=== PATIENT | female | born 1975 | race Caucasian/White ===

== ENCOUNTER 2016-12-24 15:07 | Emergency (ER) | payer MEDICAID ==
[~2016-12-24] VITALS: Ht 162.6 cm; Wt 71.7 kg
[~2016-12-24 15:07] MED LIST: AMOXIL500 MG PO; FLEXERIL10 MG PO; GABAPENTIN 600600 MG PO; MEDROL 4MG. DOSE4 MG PO
[2016-12-24] MEDS ORDERED: TIZANIDINE HCL 44 MG PO (15:36)
[2016-12-24] MEDS ORDERED: ROPINIROLE2 MG PO (15:36)
[2016-12-24] MEDS ORDERED: POLYMYXIN B/TRI10 ML OP (15:36)
[2016-12-24] MEDS ORDERED: AMITRIPTYLINE H10 M1 PO (15:36)
[2016-12-24] MEDS ORDERED: CETIRIZINE HYDR10 MG PO (15:37)
[2016-12-24] MEDS ORDERED: AMOXICILLIN AND1 TA2 PO (15:38)
[2016-12-24] MEDS ORDERED: TESSALON PERLE100 M1 PO (15:56)
--- NOTE | 2016-12-24 15:58 | Emergency Room Report ---
History of Present Illness Time Seen by [id number] Presenting Problem in Triage Pt arrived:Walked Presenting Problem:PT REPORTS INCREASING REDNESS AND DRAINAGE FROM R EYE. PT REPORTS HAS BEEN ON DROPS FOR EYE X3 DAYS FOR "PINK EYE". PT REPORTS PRESSURE FEELING IN R EYE. Onset of symptoms date/time:12/19/16/ or onset unknown for:MEDICAL HX UNKNOWN Treatment Prior to Arrival: POLYMIXIN B EYE DROPS [employer] Provided by:SELF Sepsis Risk Assessment: Temp: 97.9 B/P: 124/83 MAP: 96 Pulse: 83 Resp: 18 Recent fever? N Clinical Suspician of Infection? N Mental Status: 1 - Regular (Normal Baseline) Sepsis Risk:Low Sepsis Risk Have you (or family members/close friends) recently traveled outside the [place]? N If Yes, where/when: Have you had exposure to infectious disease within the past month? N TB? Other? Specify: 40 years old white female smoker he is on her second ROUND OF antibiotic containing about Dr. Bazan because she continues to cough despite continuing to smoke. SHE DEVELOPED LEFT SC HEMORRHAGE. Source patient, RN notes reviewed, family Exam Limitations no limitations ALLERGIES Coded Allergies: No Known Allergies (06/01/16) Home Medications Reported Medications Gabapentin (Gabapentin 600MG) 600 MG PO Q8 #90 POLYMYXIN B SULF/TRIMETHOPRIM (Polymyxin B-Tmp Eye Drops) 10 ML OP BID #10 TIZANIDINE HCL (Tizanidine Hcl 4 Mg Tablet) 4 MG PO TIDP #60 AMITRIPTYLINE HCL (Amitriptyline Hydrochloride) 10 MG PO QHS #30 ROPINIROLE HCL (Ropinirole) 2 MG PO QHS #30 Cetirizine Hcl (Cetirizine Hydrochloride) 10 MG PO DAILY #30 AMOXICILLIN/POTASSIUM CLAV (Amox Tr-K Clv 875-125 MG Tab) 1 TAB PO BID #14 History Medical History General CAD? No Angina: No [place]: No Hypertension? No Hyperlipidemia? No CHF? No DVT? No PE? No COPD? No Asthma? No Anemia? No GERD? No Gastric ulcers? No GI Bleed? No Hernia? No Thyroid Problems? No Hypothyroidism? No CVA? No Seizures? No Diabetes? No Insulin Dependent: No Insulin Pump: No Home FSBS? No Renal Insuffiency? No End Stage Renal Disease? No UTI? No Stones? No BPH? No GB Disease: No Nephritic Syndrome? No Asplenia? No Hepatitis? No Sickle Cell Disease? No Arthritis? No Migraines? No Cataracts? No Glaucoma? No MRSA? No HIV? No TB? No Anxiety? Yes Depression? Yes Cancer? Yes Site: CERVICAL More? Yes Additional hx: PTSD Immunization Hx DT/Tetanus > 10 YRS Surgical Hx Previous Surgery?Y HYSTERECTOMY LAPAROSCOPY X 3 C SECTION ENLARGED BLADDER L ANKLE D & C IN [employer]ATE Hx LMP N/A Social History Smoking Hx Smoker: Current Every Day Smoker Tobacco: Yes Type Cigarettes Packs/day < 1 Pack Alcohol Alcohol: Yes Review of Systems All Other Systems Reviewed and Negative Constitutional no symptoms reported Eyes see HPI (LEFT SC HGE) ENT no symptoms reported. Respiratory see HPI, cough Cardiovascular no symptoms reported, see HPI Gastrointestinal no symptoms reported Genitourinary no symptoms reported. Musculoskeletal no symptoms reported Skin no symptoms reported Psychiatric/Neurological no symptoms reported Physical Exam Vital Signs Vital Signs Date Time Temp Pulse Resp B/P Pulse O2 O2 Flow FiO2 Ox Delivery Rate 12/24 1515 97.9 83 18 124/83 96 General Appearance normal appearance, WD/WN Ear, Nose, Throat hearing grossly normal, normal ENT inspection Neck normal inspection, non-tender, supple, full range of motion Respiratory Status Yes: trachea midline, chest symmetrical, non tender chest. No: respiratory distress. Lung Sounds bilateral: normal breath sounds, lungs clear. Cardiovascular normal exam, regular rate/rhythm, no peripheral edema, no gallop, no JVD, no murmur, no rub, normal peripheral pulses Peripheral Pulses Pulses normal Yes Gastrointestinal normal bowel sounds, normal exam, non tender, soft, no organomegaly Extremities non-tender, normal range of motion, normal inspection Neurologic alert, credit rating checker II-XII nml as tested, normal exam, oriented x 3 Reflexes Reflexes normal Yes Medical Decision Making LABS/Meds/Orders Pt receiving controlled substance in ED? No Departure Departure Time of Disposition 1554 Disposition DC Home or Self Care(routine) Clinical Impression Primary Impression: Cough Secondary Impressions: Acute bronchitis, Subconjunctival edema of left eye, Tobacco use Condition STABLE Referrals Uri MARTINS,Alexandria Issa Additional Instructions I DISCUSSED [place] PATIENT [facility] THE FOLLOWING DC PLAN. 1- STOP SMOKING. 2- HOB 30 DEGREE. 3-COLD COMPRESSES LEFT EYE. 4- PLACE CIPRO EYE DROPS IN THE FRIG. 5- TESSALON PEARLS. 6- RECHECK WITH DR BAZAN IN AM FOR NICOTIN PATCH WE DISCUSSED. 7- FINISH THE AMOXICILLIN ABX. 8- NO ASA OR NSAIDS ONLY TYLENOL. Discharge Counseling Counseled pt/family regarding diagnosis, test results, medications/RX, home care, follow up needs Prescriptions Current Visit Scripts Benzonatate (Tessalon Perle) 100 MG PO Q4HP PRN COUGH #30 SGL Ref 1 ED Critical Care Critical Care No at [id number]
--- NOTE | 2016-12-24 15:58 | Emergency Room Report ---
History of Present Illness Time Seen by [id number] Presenting Problem in Triage Pt arrived:Walked Presenting Problem:PT REPORTS INCREASING REDNESS AND DRAINAGE FROM R EYE. PT REPORTS HAS BEEN ON DROPS FOR EYE X3 DAYS FOR "PINK EYE". PT REPORTS PRESSURE FEELING IN R EYE. Onset of symptoms date/time:12/19/16/ or onset unknown for:MEDICAL HX UNKNOWN Treatment Prior to Arrival: POLYMIXIN B EYE DROPS TUG HAND Provided by:SELF Sepsis Risk Assessment: Temp: 97.9 B/P: 124/83 MAP: 96 Pulse: 83 Resp: 18 Recent fever? N Clinical Suspician of Infection? N Mental Status: 1 - Regular (Normal Baseline) Sepsis Risk:Low Sepsis Risk Have you (or family members/close friends) recently traveled outside the [place]? N If Yes, where/when: Have you had exposure to infectious disease within the past month? N TB? Other? Specify: 40 years old white female smoker he is on her second ROUND OF antibiotic containing about Dr. Bazan because she continues to cough despite continuing to smoke. SHE DEVELOPED LEFT SC HEMORRHAGE. Source patient, RN notes reviewed, family Exam Limitations no limitations ALLERGIES Coded Allergies: No Known Allergies (06/01/16) Home Medications Reported Medications Gabapentin (Gabapentin 600MG) 600 MG PO Q8 #90 POLYMYXIN B SULF/TRIMETHOPRIM (Polymyxin B-Tmp Eye Drops) 10 ML OP BID #10 TIZANIDINE HCL (Tizanidine Hcl 4 Mg Tablet) 4 MG PO TIDP #60 AMITRIPTYLINE HCL (Amitriptyline Hydrochloride) 10 MG PO QHS #30 ROPINIROLE HCL (Ropinirole) 2 MG PO QHS #30 Cetirizine Hcl (Cetirizine Hydrochloride) 10 MG PO DAILY #30 AMOXICILLIN/POTASSIUM CLAV (Amox Tr-K Clv 875-125 MG Tab) 1 TAB PO BID #14 History Medical History General CAD? No Angina: No [place]: No Hypertension? No Hyperlipidemia? No CHF? No DVT? No PE? No COPD? No Asthma? No Anemia? No GERD? No Gastric ulcers? No GI Bleed? No Hernia? No Thyroid Problems? No Hypothyroidism? No CVA? No Seizures? No Diabetes? No Insulin Dependent: No Insulin Pump: No Home FSBS? No Renal Insuffiency? No End Stage Renal Disease? No UTI? No Stones? No BPH? No GB Disease: No Nephritic Syndrome? No Asplenia? No Hepatitis? No Sickle Cell Disease? No Arthritis? No Migraines? No Cataracts? No Glaucoma? No MRSA? No HIV? No TB? No Anxiety? Yes Depression? Yes Cancer? Yes Site: CERVICAL More? 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 Respiratory see HPI, cough Cardiovascular no symptoms reported, see HPI Gastrointestinal no symptoms reported Genitourinary no symptoms reported. Musculoskeletal no symptoms reported Skin no symptoms reported Psychiatric/Neurological no symptoms reported Physical Exam Vital Signs Vital Signs Date Time Temp Pulse Resp B/P Pulse O2 O2 Flow FiO2 Ox Delivery Rate 12/24 1515 97.9 83 18 124/83 96 General Appearance normal appearance, WD/WN Ear, Nose, Throat hearing grossly normal, normal ENT inspection Neck normal inspection, non-tender, supple, full range of motion Respiratory Status Yes: trachea midline, chest symmetrical, non tender chest. No: respiratory distress. Lung Sounds bilateral: normal breath sounds, lungs clear. Cardiovascular normal exam, regular rate/rhythm, no peripheral edema, no gallop, no JVD, no murmur, no rub, normal peripheral pulses Peripheral Pulses Pulses normal Yes Gastrointestinal normal bowel sounds, normal exam, non tender, soft, no organomegaly Extremities non-tender, normal range of motion, normal inspection Neurologic alert, shot tube machine tender II-XII nml as tested, normal exam, oriented x 3 Reflexes Reflexes normal Yes Medical Decision Making LABS/Meds/Orders Pt receiving controlled substance in ED? No Departure Departure Time of Disposition 1554 Disposition DC Home or Self Care(routine) Clinical Impression Primary Impression: Cough Secondary Impressions: Acute bronchitis, Subconjunctival edema of left eye, Tobacco use Condition STABLE Referrals Uri MARTINS,Alexandria Issa Additional Instructions I DISCUSSED [place] PATIENT AT [facility] THE FOLLOWING DC PLAN. 1- STOP SMOKING. 2- HOB 30 DEGREE. 3-COLD COMPRESSES LEFT EYE. 4- PLACE CIPRO EYE DROPS IN THE FRIG. 5- TESSALON PEARLS. 6- RECHECK WITH DR BAZAN IN AM FOR NICOTIN PATCH WE DISCUSSED. 7- FINISH THE AMOXICILLIN ABX. 8- NO ASA OR NSAIDS ONLY TYLENOL. Discharge Counseling Counseled pt/family regarding diagnosis, test results, medications/RX, home care, follow up needs Prescriptions Current Visit Scripts Benzonatate (Tessalon Perle) 100 MG PO Q4HP PRN COUGH #30 SGL Ref 1 ED Critical Care Critical Care No at [id number]
[2016-12-24 16:14] VITALS: BP 124/83
--- OUTSIDE RECORDS SUMMARY | 2016-12-25 18:47 | External Medical Summary Rpt ---
Author Author , JERRICA BECERRIL Address Unknown Phone [email or web address] Care Team Providers Care Sign Hanger Name Role Phone AIDA DONNIE, AIDA Unavailable Unavailable DONNIE LU ALFONSO, LU Unavailable Unavailable ALFONSO ARNJENNIFER, KRYSTINAOLD Unavailable Unavailable MALLORY SCHULTZ, ARNOLD Unavailable Unavailable MARION FIGUEROA, Unavailable Unavailable ,PSC, GABRIEL FIGUEROA MD,PSC [facility] Unavailable Unavailable [facility], [facility] TODD SONNY, TODD Unavailable Unavailable SONNY TODD SONNY, TODD Unavailable Unavailable SONNY LIU ALL, LIU ALL Unavailable Unavailable ADIEL ANT, ADIEL ANT Unavailable Unavailable ADIEL ANT, ADIEL ANT Unavailable Unavailable [facility] Unavailable Unavailable H[facility]ITAL, [facility], [facility] Unavailable Unavailable AG AYSHA, AG Unavailable Unavailable AYSHA CHANDEL, CHANDEL Unavailable Unavailable CHANDEL ABDIRASHID, CHANDEL Unavailable Unavailable ABDIRASHID CHEESEMAN ALEX, Unavailable Unavailable CHEESEMAN ALEX CHEESEMAN ALEX, Unavailable Unavailable CHEESEMAN ALEX [facility], Unavailable Unavailable [facility] AMILCAR DONITA, Unavailable Unavailable AMILCAR DONITA AMILCAR DONITA, Unavailable Unavailable AMILCAR DONITA MIKEY ADR, MIKEY Unavailable Unavailable ADR EVELIO MALCOLM, EVELIO Unavailable Unavailable [facility] Unavailable Unavailable [facility] [place]available [place], [facility] [place] ECKERLINE JR GABRIELLE, Unavailable Unavailable ECKERLINE JR GABRIELLE ECKERLINE JR GABRIELLE, Unavailable Unavailable ECKERLINE JR GABRIELLE [facility], [facility] Unavailable Unavailable [facility], [facility] Unavailable Unavailable FRYMAN, FRYMAN Unavailable Unavailable KARI, KARI Unavailable Unavailable KARI LEELEE, KARI Unavailable Unavailable LEELEE [facility], Unavailable Unavailable [facility] GILBERT SONNY, GILBERT Unavailable Unavailable SONNY GILBERT SONNY, GILBERT Unavailable Unavailable SONNY COPELAND III, ALVIN I, Unavailable Unavailable COPELAND III, ALVIN I MIREILLE, MIREILLE Unavailable Unavailable WAY MOIRA, WAY Unavailable Unavailable MOIRA [facility] Un[facility] Un[facility], [facility], [facility], [facility] IN HERDER AFTAB, HERDER Unavailable Unavailable AFTAB HERDER AFTAB, HERDER Unavailable Unavailable AFTAB [facility], Unavailable Unavailable [facility] Unavailable Un[facility] Unavailable Unavailable [place], [facility] RIGGS GONAZLO, RIGGS GONZALO Unavailable Unavailable CATHERINE BECKI, CATHERINE Unavailable Unavailable BECKI CATHERINE BECKI, CATHERINE Unavailable Unavailable BECKI [facility] Unavailable Unavailable [facility], [facility] Unavailable Unavailable [facility], [facility] Unavailable Unavailable [facility], [facility] STOUT FORD, STOUT Unavailable Unavailable FOR[facility] Un[facility], [facility] NICOLETTE RAMÓN, NICOLETTE Unavailable Unavailable RAMÓN MCKEMIE JR DEBBIE, Unavailable Unavailable MCKEMIE JR DEBBIE MCKEMIE JR DEBBIE, Unavailable Unavailable MCKEMIE JR DEBBIE YOMI GRE, YOMI GRE Unavailable Unavailable YOMI GRE, YOMI GRE Unavailable Unavailable WASHINGTON AYSHA, WASHINGTON AYSHA Unavailable Unavailable NICKELS FREDDIE, NICKELS Unavailable Unavailable FREDDIE NICKELS FREDDIE, NICKELS Unavailable Unavailable FREDDIE GUERRERO DEBBIE, GUERRERO Unavailable Unavailable DEBBIE GUERRERO DEBBIE, GUERRERO Unavailable Unavailable DEBBIE [facility], Un[facility]available [facility], [facility] PETTEY, PETTEY Unavailable Unavailable [facility], Unavailable [facility]available [facility] PICKCKIMER JR, Unavailable Unavailable PICKLESIMER JR OZ HEN, OZ Unavailable Unavailable HEN [facility], Unavailable Unavailable [facility], Unavailable Unavailable [facility], Unavailable Unavailable BREWSTER RIDGE [facility] Unavailable Unavailable [id number] [address] [id number], [facility] [id number] # 0785 [place] SONNY, MI Unavailable Unavailable SONNY SCALF, SCALF Unavailable Unavailable SCALF NIRMAL, SCALF NIRMAL Unavailable Unavailable SCALF NIRMAL, SCALF NIRMAL Unavailable Unavailable SCIFRES, JOSE M, Unavailable Unavailable SCIFRES, JOES M CANDELARIA, CANDELARIA Unavailable Unavailable CANDELARIA LIA, CANDELARIA Unavailable Unavailable LIA EDWARD MAR, EDWARD Unavailable Unavailable MAR EDWARD MAR, EDWARD Unavailable Unavailable MAR JOHNSON DONITA, JOHNSON DONITA Unavailable Unavailable JOHNSON DONITA, JOHNSON DONITA Unavailable Unavailable [facility] Un[facility] Un[facility] Un[facility] BROWN RAY, BROWN Unavailable Unavailable [facility] Un[facility] Unavailable [facility], [facility] Unavailable Unavailable [facility]ENTER, [facility] SWINEY PAT, SWINEY Unavailable Unavailable PAT [facility], Unavailable [facility]available [facility] FATIMAH PHI, FATIMAH PHI Unavailable Unavailable [facility], Unavailable Unavailable [facility] MAHER PHI, MAHER Unavailable Unavailable PHI MAHER PHI, MAHER Unavailable Unavailable [facility] # Unavailable Unavailable 5574, [facility] # 5574 [facility] # Unavailable Unavailable 9712, [facility] # 9712 [facility] Unavailable Unavailable [facility] Unavailable Unavailable JULIA IV ALL, Unavailable Unavailable JULIA IV ALL [facility], Unavailable Unavailable [facility], Unavailable Unavailable [facility] YOUNG YAV, YOUNG YAV Unavailable Unavailable ESTIVEN MAT, ESTIVEN MAT Unavailable Unavailable ESTIVEN MAT, ESTIVEN MAT Unavailable Unavailable Purpose Continuity of Care Document - 10-20-2009 through 2016 Problems Code Diagnosis DOS Provider Status N390 URINARY 10-10-2016 [facility] TRACT N EMERGENCY INFECTION PHYS SITE NOT SPECIFIED N8110 CYSTOCELE 10-10-2016 [facility] UNSPECIFIED N EMERGENCY PHYS J0190 ACUTE 07-06-2016 [facility] SINUSITIS N EMERGENCY UNSPECIFIED PHYS R05 COUGH 07-06-2016 [facility] R0602 SHORTNESS 07-06-2016 [facility] OF BREATH [facility] R062 WHEEZING 07-06-2016 [facility] N EMERGENCY PHYS [id number] UNSPECIFIED 06-28-2016 [facility] INJURY PHYSICIANS LEFT ANKLE GROUP SUBSEQUENT ENCNTR [id number] SPRAIN 06-14-2016 [facility] OTHER PHYSICIANS LIGAMENT LT GROUP ANKLE INITIAL ENCOUNTER G8921 CHRONIC 06-01-2016 [facility] DUE [facility] TRAUMA INC P20076 PAIN IN 06-01-2016 [facility] LEFT FOOT [facility] INC Z720 TOBACCO USE 06-01-2016 [facility] P58869 PAIN IN 05-30-2016 [facility] [place] LEFT ANKLE RADIOLOGY [id number] SPRAIN UNS 05-30-2016 [facility] LIGAMENT N EMERGENCY LEFT ANKLE PHYS INITIAL ENCOUNTER Y93F2 ACTIVITY 05-30-2016 [facility] CAREGIVING N EMERGENCY LIFTING PHYS A599 TRICHOMONIA 05-18-2016 [facility] UNSPECIFIED B9689 OTH SPEC 05-18-2016 [facility] B[facility]ERIAL [facility] AGNT CAUSE DZ CLASSIFIED ELSW J0100 ACUTE 05-18-2016 [facility] MAXILLARY PHYSICIANS SINUSITIS GROUP UNSPECIFIED N898 OTHER 05-18-2016 [facility] SPECIFIED LLC NONINFLAMMA TORY DISORDERS VAGINA Y67155 ENCOUNTER 05-18-2016 [facility], CONTINUOUS IMPROVEMENT INTERN EXAM LLC GENERAL RTN W/O ABNORMAL FIND Z139 ENCOUNTER 05-18-2016 [facility] FOR PHYSICIANS SCREENING GROUP UNSPECIFIED [id number] SPRAIN 04-10-2016 [facility] TARSOMETATA N EMERGENCY RSAL PHYS LIGAMENT LT FOOT INIT ENC U5449MN SLIP TRIP & 04-10-2016 [facility] STUMBLING N EMERGENCY W/O FALLING PHYS UNS INIT ENC R1011 RIGHT UPPER 04-07-2016 [facility] E119 TYPE 2 03-29-2016 [facility] DIABETES PHYSICIANS MELLITUS GROUP WITHOUT COMPLICATIO NS E663 OVERWEIGHT 03-29-2016 [facility] PHYSICIANS GROUP E785 HYPERLIPIDE 03-29-2016 [facility] KENNY PHYSICIANS UNSPECIFIED GROUP G629 POLYNEUROPA 03-29-2016 [facility] THY PHYSICIANS UNSPECIFIED GROUP M549 DORSALGIA 03-29-2016 [facility] UNSPECIFIED PHYSICIANS GROUP Z1231 ENCOUNTER 03-29-2016 [facility] SCREENING PHYSICIANS MAMMO MALIG GROUP NEOPLASM BREAST K219 GASTRO-ESOP 02-09-2016 [facility] H REFLUX PHYSICIANS DISEASE GROUP WITHOUT ESOPHAGITIS B850 PEDICULOSIS 12-30-2015 [facility] PEDICULUS MEDICAL HUMANUS GROUP CAPITIS J40 BRONCHITIS 12-04-2015 [facility] N EMERGENCY SPECIFIED PHYSI ACUTE OR CHRONIC R0789 OTHER CHEST 12-04-2015 [facility] PAIN [facility] R091 PLEURISY 12-04-2015 [facility] N EMERGENCY PHYSI M542 CERVICALGIA 11-18-2015 [facility] A877VPZ STRAIN 11-18-2015 [facility] MUSCLE FASC N EMERGENCY & TENDON SERV NECK LEVL INIT ENC D62VGPI EXPOSURE TO 11-18-2015 [facility] OTHER N EMERGENCY SPECIFIED SERV FACTORS INITIAL ENC K85521 ELEVATED 11-15-2015 [facility] CELL COUNT UNSPECIFIED G2581 RESTLESS 11-15-2015 [facility] SYNDROME R7309 OTHER 11-15-2015 [facility] GLUCOSE R0781 PLEURODYNIA 10-13-2015 [facility] N EMERGENCY PHYSI R1030 LOWER 10-03-2015 [facility] ABDOM[facility]AL [facility] PAIN UNSPECIFIED M545 LOW BACK 08-12-2015 [facility] PAIN N EMERGENCY PHYSI 73314 METHICILLIN 02-02-2015 [facility] RESISTANT PHYSICIANS STAPHYLOCOC GROUP CUS AUREUS 90453 OTHER 02-02-2015 [facility] CHRONIC PHYSICIANS PAIN GROUP 490 BRONCHITIS 02-02-2015 [facility] NOT PHYSICIANS SPECIFIED GROUP ACUTE OR CHRONIC 7231 CERVICALGIA 02-02-2015 [facility] PHYSICIANS GROUP 460 ACUTE 01-26-2015 [facility] NASOPHARYNG N EMERGENCY ITIS PHYS 6250 DYSPAREUNIA 01-26-2015 [facility]GENC[facility] PHYS 6273 POSTMENOPAU 01-26-2015 [facility] RAISA N EMERGENCY ATROPHIC PHYS VAGINITIS 7841 THROAT PAIN 01-26-2015 [facility] N EMERGENCY PHYS 462 ACUTE 01-15-[address] [facility] PHARYNGITIS PHYSICIANS, [facility] 7242 LUMBAGO 06-22-2014 [facility] V571 OTHER 06-22-2014 [facility] 74305 CHRONIC 05-06-2014 [facility] OBSTRUCTIVE N EMERGENCY ASTHMA PHYS UNSPECIFIED 52876 WHEEZING 05-06-2014 [facility] N EMERGENCY PHYS 34353 OTHER 03-05-2014 [facility] SPECIFIED ARTHROPATHY PELVIC REGION&THIG H 7291 UNSPECIFIED 03-05-2014 [facility] MYALGIA AND MYOSITIS 7905 OTHER 12-23-2013 [facility] HOSPITAL SERUM ENZYME LEVELS 2113 BENIGN 11-26-2013 [facility] NEOPLASM [facility] COLON 4550 INTERNAL 11-26-2013 [facility] WITHOUT MENTION COMP 78286 UNSPECIFIED 11-26-2013 [facility] CONSTIPATIO N 5781 BLOOD IN 11-26-2013 [facility] 58196 ABDOMINAL 11-26-2013 [facility] GENERALIZED 25253 NAUSEA 10-09-2013 [facility] ALONE DONITA 10265 ABDOMINAL 10-09-2013 [facility] PAIN, DONITA UNSPECIFIED SITE 87058 ABDOMINAL 10-09-2013 [facility] RIGHT [facility] UPPER INC QU[facility] 28104 PAIN IN 09-30-2013 [facility] JOINT, DONITA LOWER LEG E8889 UNSPECIFIED 09-30-2013 [facility] FALL DONITA V642 SURG/OTH 09-25-2013 [facility] PROC NOT [facility] HOS[facility] CARRIED OUT INC BECAUSE PTS DECN 7210 CERVICAL 09-10-[address] SPONDYLOSIS SURGERY WITHOUT CENTER MYELOPATHY 7213 LUMBOSACRAL 09-10-2013 [facility] DONITA SPONDYLOSIS WITHOUT MYELOPATHY 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 56709 SPINAL STEN 09-10-2013 [facility] LUMB REG DONITA W/O NEUROGENIC CLAUDICATIO N 486 PNEUMONIA, 09-02-2013 [facility] ORGANISM [facility] UNSPECIFIED INC 514 PULMONARY 09-02-2013 [facility] CONGESTION DONITA AND HYPOSTASIS 7862 COUGH 09-02-2013 [facility] DONITA 5758 OTHER 08-20-2013 [facility] SPECIFIED DONITA DISORDER OF GALLBLADDER 65202 FEVER 08-20-2013 MCSERAMIE JR UNSPECIFIED DEBBIE 67838 CHEST PAIN 08-20-2013 MCKEMIE JR UNSPECIFIED DEBBIE 7873 FLATULENCE 08-01-2013 ADIEL ANT ERUCTATION AND GAS PAIN 4658 ACUTE URIS 07-08-2013 JOHNSON DONITA OF OTHER MULTIPLE SITES 2893 LYMPHADENIT 07-03-2013 [facility] IS UNSPECIFIED EXCEPT MESENTERIC 4660 ACUTE 07-03-2013 [facility] BRONCHITIS 29599 ASTHMA, 07-03-2013 [facility] UNSPECIFIED , UNSPECIFIED STATUS 3544 CAUSALGIA 06-17-2013 [facility] OF UPPER HENRY LIMB ,PSC 7224 DEGENERATIO 06-17-2013 GABRIEL N OF HENRY CERVICAL ,PSC INTERVERTEB RAL DISC V790 SCREENING 06-17-2013 [facility] FOR HENRY DEPRESSION ,PSC 4871 INFLUENZA 04-22-2013 [facility] WITH OTHER RESPIRATORY MANIFESTATI ONS 5368 DYSPEPSIA&O 04-04-2013 [facility] DISORDERS FUNCTION STOMACH 06585 OTHER 04-02-2013 N[facility]ELS FREDDIE SYMPTOMS INVOLVING DIGESTIVE SYSTEM OTHER V1279 PERSONAL 04-02-2013 [facility] HOSPITAL DISEASES DIGESTIVE DISEASE V4589 OTHER 04-02-2013 E[facility] POSTSURGICA JR GABRIELLE L STATUS OTHER 27698 INTERVERT 11-14-2012 [facility] GRE LUMB DISC D/O W/MYELOPATH Y LUMB REGION 7812 ABNORMALITY 11-14-2012 [facility] GRE OF GAIT V7109 OBSERVATION 11-14-2012 [facility] GRE OF OTHER SUSPECTED MENTAL CONDITION 6826 CELLULITIS 11-08-2012 TODD SONNY AND ABSCESS OF LEG EXCEPT FOOT 99828 UNSPECIFIED 11-04-2012 [facility] ESOPHAGITIS 67159 OTHER SPEC 11-04-2012 GUERRERO DEBBIE GASTRITIS WITHOUT MENTION HEMORRHAGE 7871 HEARTBURN 11-04-2012 LU ALFONSO 56929 REFLUX 10-31-2012 [facility] ESOPHAGITIS 3384 CHRONIC 10-15-2012 [facility] PAIN SYNDROME 7234 BRACHIAL 10-15-2012 [facility] NEURITIS OR RADICULITIS NOS 7238 OTHER 10-15-2012 [facility] SYNDROMES AFFECTING CERVICAL REGION 84557 ABDOMINAL 10-09-2012 [facility] NIRMAL PAIN, EPIGASTRIC 7919 OTHER 10-09-2012 [facility] EXAMINATION OF URINE 7804 DIZZINESS 09-17-2012 BALDEMAR UGALDE AND GIDDINESS E9352 OTH 09-17-2012 HERDLEANN UGALDE OPIATES&[place] [address] ESOPHAGEAL 09-09-2012 ESTIVEN MAT REFLUX 4549 ASYMPTOMATI 09-03-2012 [facility] C VARICOSE VEINS 7295 PAIN IN 08-20-2012 BHUMIKA SONNY SOFT TISSUES OF LIMB 50001 UNSPECIFIED 06-11-2012 [facility] ARTHROPATHY OTHER SPECIFIED SITES 7220 DISPLCMT 06-11-2012 [facility] CERV SERVICES INTERVERT DISC WITHOUT MYELOPATHY 73899 INTERVERT 02-21-2012 [facility] DISC [facility] W/MYELOPATH Y CERV REGION 7244 THORACIC/MARLA 02-21-2012 [facility] NEURITIS/RA HOSPITAL DICULITIS UNSPEC 8470 NECK SPRAIN 02-21-2012 [facility] V5789 OTHER 02-21-2012 [facility] ION PROCEDURE OTHER 4619 ACUTE 02-06-2012 [facility] SINUSITIS, UNSPECIFIED 5990 URINARY 07-03-2011 [facility]IK[facility] PHI TRACT INFECTION SITE NOT SPECIFIED 7840 HEADACHE 07-03-2011 [facility] PHI 18154 LUMP OR 06-26-2011 EDWARD JHONATAN MASS IN BREAST 4659 ACUTE URIS 05-29-2011 [facility] OF ALEX UNSPECIFIED SITE 3531 LUMBOSACRAL 04-18-2011 [facility] GRE PLEXUS LESIONS 6235 LEUKORRHEA 04-10-2011 [facility] NOT AMERIC SPECIFIED HOLDINGS INFECTIVE V7231 ROUTINE 04-10-2011 ED[facility] MAR GYNECOLOGIC AL EXAMINATION V7381 SPECIAL 04-10-2011 [facility] SCREENING AMERIC EXAMINATION HOLDINGS HUMAN PAPILVIRUS V762 SCREENING 04-10-2011 ED[facility] MAR FOR MALIGNANT NEOPLASM OF THE CERVIX 04281 OSTEOARTHRO 03-22-2011 CATHERINE CONNELL S UNSPEC WHETHER GEN/LOC UNSPEC SITE 41515 PAIN IN 03-22-2011 CATHERINE CONNELL JOINT PELVIC REGION AND THIGH 8472 LUMBAR 03-14-2011 [facility]ANS SPRAIN AND SERVICES STRAIN V5883 ENCOUNTER 02-10-2011 [facility]ANS FOR SERVICES THERAPEUTIC DRUG MONITORING 24103 SPONDYLOSIS 01-20-2011 PHYSIC[facility]ANS WITH SERVICES MYELOPATHY LUMBAR REGION 7211 CERVICAL 12-30-2010 PHYSIC[facility]ANS SPONDYLOSIS SERVICES WITH MYELOPATHY 7230 SPINAL 12-30-2010 PHYSICIANS STENOSIS IN SERVICES CERVICAL REGION V5869 LONG-TERM 12-27-2010 [facility] (CURRENT) PRIMARY USE OF [facility]ARE LLC OTHER MEDICATIONS 7245 UNSPECIFIED 12-01-2010 [facility] 496 CHRONIC 08-11-2010 [facility] AIR[facility] OBSTRUCTION NEC 5718 OTHER 08-01-2010 [facility] CHRONIC [facility] NONALCOHOLI C LIVER DISEASE 56535 UNSPECIFIED 08-01-2010 [facility] KIDNEY DISEASE 45393 ABDOMINAL 08-01-2010 [facility] 11213 DISPLCMT 07-06-2010 [facility] LUMBAR OPEN MRI INTERVERT DISC W/O MYELOPATHY 53335 SPASM OF 07-06-2010 [facility] MUSCLE OPEN MRI 11255 SCOLIOSIS , 07-06-2010 [place] IDIOPATHIC OPEN MRI 5210 DENTAL 12-21-2009 ALVIN Poole COPELAND CARIES III PSC N0 3 3670 HYPERMETROP 11-23-2009 SHAKIRA COHEN VISION Allergies, Adverse Reactions, Alerts Clinical Alert Notifications Alert Diabetes: no A1C in the last 6 months Diabetes: no eye exam in the last 365 days Diabetes: no influenza vaccine in the last 365 days Medications Na ND Rx Da Fi Fi Am Da Di Ph RX Ph St me C No te ll ll ou ys ag ar # ys at rm s nt no ma ic us Or Da si cy ia de te s n re d ME 00 07 08 30 30 00 KE Ac TF 09 -0 -0 .0 00 NT ti OR 37 3- 4- 00 01 UC ve LA 26 20 20 01 [place] N 71 17 17 86 HC 0 65 CV L S ER PH AR 50 MA 0 CY MG LL TA C, BL ET DB A CV S PH AR MA CY #3 01 6 TI 00 06 07 60 30 00 KE Ac ZA 37 -2 -2 .0 00 NT ti NI 80 8- 8- 00 01 UC ve DI 72 20 20 03 [place] NE 41 17 17 97 9 89 CV HC S L PH 4 AR MG MA CY TA BL LL ET C, DB A CV S PH AR MA CY #3 01 6 CE 00 06 07 30 30 00 KE Ac TI 37 -1 -2 .0 00 NT ti RI 83 7- 1- 00 01 UC ve ZI 63 20 20 02 [place] NE 70 17 17 91 1 26 CV HC S L PH 10 AR MA MG CY TA LL BL C, ET DB A CV S PH AR MA CY #3 01 6 GA 65 06 07 90 30 00 KE Ac BA 86 -1 -1 .0 00 NT ti PE 20 0- 4- 00 01 UC ve NT 52 20 20 03 [place] IN 30 17 17 49 5 39 CV 60 S 0 PH MG AR MA TA CY BL ET LL C, DB A CV S PH AR MA CY #3 01 6 ME 00 06 07 30 30 00 KE Ac TF 09 -0 -0 .0 00 NT ti OR 37 3- 7- 00 01 UC ve LA 26 20 20 01 [place] N 71 17 17 86 HC 0 65 CV L S ER PH AR 50 MA 0 CY MG LL TA C, BL ET DB A CV S PH AR MA CY #3 01 6 AM 00 06 07 30 30 00 KE Ac IT 37 -0 -0 .0 00 NT ti RI 82 5- 7- 00 01 UC ve PT 61 20 20 03 [place] YL 00 17 17 40 IN 1 06 CV E S HC PH L AR 10 MA CY MG LL TA C, B DB A CV S PH AR MA CY #3 01 6 RO 55 06 07 30 30 00 KE Ac PI 11 -0 -0 .0 00 NT ti NI 10 5- 7- 00 01 UC ve RO 65 20 20 03 [place] LE 93 17 17 40 0 07 CV HC S L PH ER AR 2 MA CY MG LL TA C, BL ET DB A CV S PH AR MA CY #3 01 6 CI 65 05 06 14 7 00 KE Ac ID 86 -2 -2 .0 00 NT ti OF 20 3- 3- 00 01 UC ve LO 07 20 20 03 [place] XA 70 17 17 13 CI 1 18 CV N S HC PH L AR 50 MA 0 CY MG LL TA C, B DB A CV S PH AR MA CY #3 01 6 HY 53 05 06 [address] 74 -2 -2 .0 00 NT ti OC 60 3- 3- 00 01 UC ve OD 10 20 20 03 [place] ON 90 17 17 13 -A 5 19 CV CE S TA PH LA AR NO MA PH CY EN LL 5- C, 32 5 DB A CV S PH AR MA CY #3 01 6 TI 00 05 06 60 30 00 KE Ac ZA 37 -2 -2 .0 00 NT ti NI 80 4- 3- 00 01 UC ve DI 72 20 20 03 [place] NE 41 17 17 14 9 87 CV HC S L PH 4 AR MG MA CY TA BL LL ET C, DB A CV S PH AR MA CY #3 01 6 GA 65 05 06 90 30 00 KE Ac BA 86 -1 -1 .0 00 NT ti PE 20 2- 6- 00 01 UC ve NT 52 20 20 00 [place] IN 30 17 17 31 5 79 CV 60 S 0 PH MG AR MA TA CY BL ET LL C, DB A CV S PH AR MA CY #3 01 6 CE 00 05 06 30 30 00 KE Ac TI 37 -1 -1 .0 00 NT ti RI 83 5- 6- 00 01 UC ve ZI 63 20 20 02 [place] NE 70 17 17 91 1 26 CV HC S L PH 10 AR MA MG CY TA LL BL C, ET DB A CV S PH AR MA CY #3 01 6 AM 00 05 06 30 30 00 KE Ac IT 37 -0 -0 .0 00 NT ti RI 82 4- 9- 00 01 UC ve PT 61 20 20 00 [place] YL 00 17 17 31 IN 1 81 CV E S HC PH L AR 10 MA CY MG LL TA C, B DB A CV S PH AR MA CY #3 01 6 RO 55 05 06 30 30 00 KE Ac PI 11 -0 -0 .0 00 NT ti NI 10 4- 9- 00 01 UC ve RO 65 20 20 00 [place] LE 93 17 17 31 0 80 CV HC S L PH ER AR 2 MA CY MG LL TA C, BL ET DB A CV S PH AR MA CY #3 01 6 TI 00 04 05 60 30 00 KE Ac ZA 37 -2 -2 .0 00 NT ti NI 80 6- 6- 00 01 UC ve DI 72 20 20 02 [place] NE 41 17 17 19 9 17 CV HC S L PH 4 AR MG MA CY TA BL LL ET C, DB A CV S PH AR MA CY #3 01 6 CE 00 04 05 30 30 00 KE Ac TI 37 -1 -1 .0 00 NT ti RI 83 6- 9- 00 00 UC ve ZI 63 20 20 98 [place] NE 70 17 17 89 1 23 CV HC S L PH 10 AR MA MG CY TA LL BL C, ET DB A CV S PH AR MA CY #3 01 6 GA 65 04 05 90 30 00 KE Ac BA 86 -1 -1 .0 00 NT ti PE 20 3- 9- 00 01 UC ve NT 52 20 20 00 [place] IN 30 17 17 31 5 79 CV 60 S 0 PH MG AR MA TA CY BL ET LL C, DB A CV S PH AR MA CY #3 01 6 AM 00 04 05 30 30 00 KE Ac IT 37 -0 -0 .0 00 NT ti RI 82 3- 5- 00 01 UC ve PT 61 20 20 00 [place] YL 00 17 17 31 IN 1 81 CV E S HC PH L AR 10 MA CY MG LL TA C, B DB A CV S PH AR MA CY #3 01 6 RO 55 04 05 30 30 00 KE Ac PI 11 -0 -0 .0 00 NT ti NI 10 4- 5- 00 01 UC ve RO 65 20 20 00 [place] LE 93 17 17 31 0 80 CV HC S L PH ER AR 2 MA CY MG LL TA C, BL ET DB A CV S PH AR MA CY #3 01 6 ME 00 04 05 30 30 00 KE Ac TF 09 -0 -0 .0 00 NT ti OR 37 4- 5- 00 01 UC ve LA 26 20 20 01 [place] N 71 17 17 86 HC 0 65 CV L S ER PH AR 50 MA 0 CY MG LL TA C, BL ET DB A CV S PH AR CLAUDETTE CY #3 01 6 TI 00 03 04 60 30 00 KE Ac ZA 37 -1 -2 .0 00 NT ti NI 80 9- 1- 00 00 UC ve DI 72 20 20 98 [place] NE 41 17 17 61 9 58 CV HC S L PH 4 AR MG MA CY TA BL LL ET C, DB A CV S PH AR MA CY #3 01 6 CE 00 03 04 30 30 00 KE Ac TI 37 -1 -2 .0 00 NT ti RI 83 9- 1- 00 00 UC ve ZI 63 20 20 98 [place] NE 70 17 17 89 1 23 CV HC S L PH 10 AR MA MG CY TA LL BL C, ET DB A CV S PH AR MA CY #3 01 6 GA 65 03 04 90 30 00 KE Ac BA 86 -1 -1 .0 00 NT ti PE 20 5- 4- 00 01 UC ve NT 52 20 20 00 [place] IN 30 17 17 31 5 79 CV 60 S 0 PH MG AR MA TA CY BL ET LL C, DB A CV S PH AR MA CY #3 01 6 ME 00 03 04 30 30 00 KE Ac TF 09 -0 -0 .0 00 NT ti OR 37 6- 7- 00 00 UC ve LA 26 20 20 96 [place] N 71 17 17 36 HC 0 47 CV L S ER PH AR 50 MA 0 CY MG LL TA C, BL ET DB A CV S PH AR MA CY #3 01 6 AM 00 03 04 30 30 00 KE Ac IT 37 -0 -0 .0 00 NT ti RI 82 7- 7- 00 01 UC ve PT 61 20 20 00 [place] YL 00 17 17 31 IN 1 81 CV E S HC PH L AR 10 MA CY MG LL TA C, B DB A CV S PH AR MA CY #3 01 6 RO 55 03 04 30 30 00 KE Ac PI 11 -0 -0 .0 00 NT ti NI 10 8- 7- 00 01 UC ve RO 65 20 20 00 [place] LE 93 17 17 31 0 80 CV HC S L PH ER AR 2 MA CY MG LL TA C, BL ET DB A CV S PH AR MA CY #3 01 6 CL 57 02 03 20 10 00 KE Ac AR 23 -1 -2 .0 00 NT ti IT 70 6- 4- 00 01 UC ve HR 04 20 20 00 [place] OM 56 17 17 56 YC 0 04 CV IN S PH 50 AR 0 MA MG CY TA LL BL C, ET DB A CV S PH AR MA CY #3 01 6 ID 00 02 03 15 5 00 KE Ac ED 14 -1 -2 .0 00 NT ti NI 39 6- 4- 00 01 UC ve SO 73 20 20 00 [place] NE 80 17 17 56 5 05 CV 20 S PH MG AR MA TA CY BL ET LL C, DB A CV S PH AR MA CY #3 01 6 ID 60 02 03 24 6 00 KE Ac OM 43 -1 -2 0. 00 NT ti ET 20 6- 4- 00 01 UC ve SALAZAR 60 20 20 0 00 [place] ZI 41 17 17 56 NE 6 06 CV -D S M PH SY AR RU MA P CY LL C, DB A CV S PH AR MA CY #3 01 6 RO 55 02 03 30 30 00 KE Ac PI 11 -0 -1 .0 00 NT ti NI 10 9- 7- 00 01 UC ve RO 65 20 20 00 [place] LE 93 17 17 31 0 80 CV HC S L PH ER AR 2 MA CY MG LL TA C, BL ET DB A CV S PH AR MA CY #3 01 6 GA 65 02 03 90 30 00 KE Ac BA 86 -1 -1 .0 00 NT ti PE 20 4- 7- 00 01 UC ve NT 52 20 20 00 [place] IN 30 17 17 31 5 79 CV 60 S 0 PH MG AR MA TA CY BL ET LL C, DB A CV S PH AR MA CY #3 01 6 ID 00 02 03 10 5 00 KE Ac ED 14 -0 -1 .0 00 NT ti NI 39 8- 0- 00 01 UC ve SO 73 20 20 00 [place] NE 80 17 17 31 5 78 CV 20 S PH MG AR MA TA CY BL ET LL C, DB A CV S PH AR MA CY #3 01 6 AM 00 02 03 30 30 00 KE Ac IT 37 -0 -1 .0 00 NT ti RI 82 8- 0- 00 01 UC ve PT 61 20 20 00 [place] YL 00 17 17 31 IN 1 81 CV E S HC PH L AR 10 MA CY MG LL TA C, B DB A CV S PH AR MA CY #3 01 6 AC 00 02 03 14 7 00 KE Ac ET 09 -0 -1 .0 00 NT ti AM 30 8- 0- 00 01 UC ve IN 15 20 20 00 [place] OP 01 17 17 31 HE 0 99 CV N- S CO PH D AR #3 MA CY TA BL LL ET C, DB A CV S PH AR MA CY #3 01 6 ME 00 02 03 30 30 00 KE Ac TF 09 -0 -1 .0 00 NT ti OR 37 3- 0- 00 00 UC ve LA 26 20 20 96 [place] N 71 17 17 36 HC 0 47 CV L S ER PH AR 50 MA 0 CY MG LL TA C, BL ET DB A CV S PH AR MA CY #3 01 6 GA 65 01 02 90 30 00 KE Ac BA 86 -1 -1 .0 00 NT ti PE 20 6- 7- 00 00 UC ve NT 52 20 20 97 [place] IN 30 17 17 69 5 74 CV 60 S 0 PH MG AR MA TA CY BL ET LL C, DB A CV S PH AR MA CY #3 01 6 FL 00 01 02 1. 1 00 KE Ac UC 17 -1 -1 00 00 NT ti ON 25 7- 7- 0 00 UC ve AZ 41 20 20 99 [place] OL 14 17 17 70 E 6 40 CV 10 S 0 PH MG AR MA TA CY BL ET LL C, DB A CV S PH AR MA CY #3 01 6 DI 16 01 02 30 15 00 KE Ac CL 57 -1 -1 .0 00 NT ti OF 10 0- 0- 00 00 UC ve EN 20 20 20 99 [place] AC 10 17 17 51 6 78 CV SO S D PH EC AR MA 75 CY MG LL C, TA B DB A CV S PH AR MA CY #3 01 6 ME 50 01 02 42 14 00 KE Ac TR 11 -0 -1 .0 00 NT ti ON 10 9- 0- 00 00 UC ve ID 33 20 20 99 [place] 40 17 17 47 OL 1 29 CV E S 50 PH 0 AR MG MA CY TA BL LL ET C, DB A CV S PH AR MA CY #3 01 6 ME 00 01 02 30 30 00 KE Ac TF 09 -0 -1 .0 00 NT ti OR 37 7- 0- 00 00 UC ve LA 26 20 20 96 [place] N 71 17 17 36 HC 0 47 CV L S ER PH AR 50 MA 0 CY MG LL TA C, BL ET DB A CV S PH AR MA CY #3 01 6 AZ 59 12 02 6. 5 00 KE Ac IT 76 -2 -0 00 00 NT ti HR 23 9- 3- 0 00 UC ve OM 06 20 20 99 [place] YC 00 16 17 20 IN 1 62 CV S 25 PH 0 AR MG MA CY TA BL LL ET C, DB A CV S PH AR MA CY #3 01 6 AM 00 12 01 30 30 00 KE Ac IT 37 -2 -2 .0 00 NT ti RI 82 2- 7- 00 00 UC ve PT 62 20 20 98 [place] YL 51 16 17 07 IN 0 51 CV E S HC PH L AR 25 MA CY MG LL TA C, B DB A CV S PH AR MA CY #3 01 6 GA 65 12 01 90 30 00 KE Ac BA 86 -1 -2 .0 00 NT ti PE 20 5- 0- 00 00 UC ve NT 52 20 20 97 [place] IN 30 16 17 69 5 74 CV 60 S 0 PH MG AR MA TA CY BL ET LL C, DB A CV S PH AR MA CY #3 01 6 ID 59 12 01 20 7 00 KE Ac OC 74 -1 -1 .0 00 NT ti HL 60 4- 3- 00 00 UC ve OR 11 20 20 98 [place] PE 50 16 17 78 RA 6 63 CV ZI S NE PH AR 10 MA CY MG LL TA C, B DB A CV S PH AR MA CY #3 01 6 AC 00 12 01 10 2 00 KE Ac ET 09 -1 -1 .0 00 NT ti AM 30 4- 3- 00 00 UC ve IN 15 20 20 98 [place] OP 01 16 17 78 HE 0 64 CV N- S CO PH D AR #3 MA CY TA BL LL ET C, DB A CV S PH AR MA CY #3 01 6 ME 00 12 01 30 30 00 KE Ac TF 09 -0 -0 .0 00 NT ti OR 37 8- 9- 00 00 UC ve LA 26 20 20 96 [place] N 71 16 17 36 HC 0 47 CV L S ER PH AR 50 MA 0 CY MG LL TA C, BL ET DB A CV S PH AR MA CY #3 01 6 ID 00 07 10 3 30 30 RI 20 SH Ac EM 04 -1 -2 .0 TE 30 OC ti AR 61 3- 4- 00 73 KE ve IN 10 20 20 AI Y 38 11 11 D MA 0. 1 PH RG 9 AR AR MG MA ET CY L TA BL 07 ET 85 6 # 07 85 ME 65 07 10 3 30 30 RI 20 SH Ac LO 86 -1 -1 .0 TE 30 OC ti XI 20 3- 9- 00 75 KE ve CA 09 20 20 AI Y M 80 11 11 D MA 15 1 PH RG AR AR MG MA ET CY L TA BL 07 ET 85 6 # 07 85 CI 65 10 10 0 30 30 WA 96 LA Ac TA 16 -0 -0 .0 LG 01 CK ti LO 20 7- 7- 00 RE 91 ve ID 05 20 20 EN GR AM 41 11 11 S EG 0 #5 OR HB 57 Y R 4 E 40 # 55 MG 74 TA BL ET AL 00 10 10 0 90 30 WA 96 LA Ac ID 22 -0 -0 .0 LG 01 CK ti AZ 82 7- 7- 00 RE 93 ve OL 03 20 20 EN GR AM 15 11 11 S EG 1 0 #5 OR 57 Y MG 4 E # TA 55 BL 74 ET ID 00 08 10 2 60 10 RI 20 SH Ac OM 60 -1 -0 .0 TE 68 OC ti ET 35 1- 5- 00 88 KE ve SALAZAR 43 20 20 AI Y ZI 82 11 11 D MA NE 1 PH RG AR AR 25 MA ET CY L MG 07 TA 85 BL 6 ET # 07 85 HY 00 09 10 0 90 30 WA [address] 59 -2 -0 .0 LG 21 CK ti OC 13 3- 4- 00 RE 55 ve OD 20 20 20 EN GR ON 20 11 11 S EG -A 1 #9 OR CE 71 Y TA 2 E LA # NO 97 PH 12 EN 5- 32 5 BA 00 08 10 2 90 30 WA 27 RICH Ac CL 17 -0 -0 .0 LG 30 HN ti OF 24 9- 2- 00 RE 23 SO ve EN 09 20 20 EN N 76 11 11 S KE 20 0 #9 71 N MG 2 B # TA 97 BL 12 ET ID 00 07 09 3 30 30 RI 20 SH Ac EM 04 -1 -1 .0 TE 30 OC ti AR 61 3- 4- 00 73 KE ve IN 10 20 20 AI Y 38 11 11 D MA 0. 1 PH RG 9 AR AR MG MA ET CY L TA BL 07 ET 85 6 # 07 85 ME 65 07 09 3 30 30 RI 20 SH Ac LO 86 -1 -1 .0 TE 30 OC ti XI 20 3- 4- 00 75 KE ve CA 09 20 20 AI Y M 80 11 11 D MA 15 1 PH RG AR AR MG MA ET CY L TA BL 07 ET 85 6 # 07 85 CI 65 09 09 0 [address] Ac TA 16 -0 -0 .0 LG 81 OR ti LO 20 9- 9- 00 RE 36 EY ve ID 05 20 20 EN AM 41 11 11 S BE 0 #9 NJ HB 71 AM R 2 IN 40 # B 97 MG 12 TA BL ET AL 00 09 09 0 [address] Ac ID 22 -0 -0 .0 LG 81 OR ti AZ 82 9- 9- 00 RE 37 EY ve OL 03 20 20 EN AM 15 11 11 S BE 1 0 #9 NJ 71 AM MG 2 IN # B TA 97 BL 12 ET BA 00 08 09 2 90 30 WA 27 RICH Ac CL 17 -0 -0 .0 LG 30 HN ti OF 24 9- 5- 00 RE 23 SO ve EN 09 20 20 EN N 76 11 11 S KE 20 0 #9 71 N MG 2 B # TA 97 BL 12 ET ID 00 08 09 2 60 10 RI 20 SH Ac OM 60 -1 -0 .0 TE 68 OC ti ET 35 1- 3- 00 88 KE ve SALAZAR 43 20 20 AI Y ZI 82 11 11 D MA NE 1 PH RG AR AR 25 MA ET CY L MG 07 TA 85 BL 6 ET # 07 85 ID 00 07 08 3 30 30 RI 20 SH Ac EM 04 -1 -1 .0 TE 30 OC ti AR 61 3- 6- 00 73 KE ve IN 10 20 20 AI Y 38 11 11 D MA 0. 1 PH RG 9 AR AR MG MA ET CY L TA BL 07 ET 85 6 # 07 85 ME 65 07 08 3 30 30 RI 20 SH Ac LO 86 -1 -1 .0 TE 30 OC ti XI 20 3- 6- 00 75 KE ve CA 09 20 20 AI Y M 80 11 11 D MA 15 1 PH RG AR AR MG MA ET CY L TA BL 07 ET 85 6 # 07 85 ID 00 08 08 2 60 10 RI 20 SH Ac OM 60 -1 -1 .0 TE 68 OC ti ET 35 1- 1- 00 88 KE ve SALAZAR 43 20 20 AI Y ZI 82 11 11 D MA NE 1 PH RG AR AR 25 MA ET CY L MG 07 TA 85 BL 6 ET # 07 85 AL 00 08 08 0 60 30 WA 27 RICH Ac ID 22 -0 -1 .0 LG 30 HN ti AZ 82 9- 0- 00 RE 26 SO ve OL 03 20 20 EN N AM 15 11 11 S KE 1 0 #9 71 N MG 2 B # TA 97 BL 12 ET BA 00 08 08 2 90 30 WA 27 RICH Ac CL 17 -0 -0 .0 LG 30 HN ti OF 24 9- 9- 00 RE 23 SO ve EN 09 20 20 EN N 76 11 11 S KE 20 0 #9 71 N MG 2 B # TA 97 BL 12 ET 00 08 08 0 90 30 WA 27 RICH Ac 59 -0 -0 .0 LG 30 HN ti 10 9- 9- 00 RE 27 SO ve 50 20 20 EN N 30 11 11 S KE 1 #9 71 N 2 B # 97 12 AL 00 07 07 90 30 RI 20 DA Ac ID 60 -1 -1 .0 TE 31 ti AZ 32 4- 4- 00 42 S ve OL 12 20 20 AI WI AM 92 11 11 D LL 1 8 PH IA AR M MG MA S CY TA BL 07 ET 85 6 # 07 85 52 07 07 0 15 30 WA 26 DA Ac 15 -1 -1 0. LG 92 ti 20 4- 4- 00 RE 47 S ve 21 20 20 0 EN WI 40 11 11 S LL 2 #9 IA 71 M 2 S # 97 12 ID 00 07 07 3 30 30 RI 20 SH Ac EM 04 -1 -1 .0 TE 30 OC ti AR 61 3- 3- 00 73 KE ve IN 10 20 20 AI Y 38 11 11 D MA 0. 1 PH RG 9 AR AR MG MA ET CY L TA BL 07 ET 85 6 # 07 85 BA 00 07 07 3 90 30 RI 20 SH Ac CL 17 -1 -1 .0 TE 30 OC ti OF 24 3- 3- 00 74 KE ve EN 09 20 20 AI Y 66 11 11 D MA 10 0 PH RG AR AR MG MA ET CY L TA BL 07 ET 85 6 # 07 85 ME 65 07 07 3 30 30 RI 20 SH Ac LO 86 -1 -1 .0 TE 30 OC ti XI 20 3- 3- 00 75 KE ve CA 09 20 20 AI Y M 80 11 11 D MA 15 1 PH RG AR AR MG MA ET CY L TA BL 07 ET 85 6 # 07 85 BA 00 04 06 3 90 30 RI 19 TI Ac CL 17 -1 -1 .0 TE 36 BB ti OF 24 9- 0- 00 40 S ve EN 09 20 20 AI PH 66 11 11 D IL 10 0 PH LI AR P MG MA A CY TA BL 07 ET 85 6 # 07 85 OX 00 06 [address] 15 OS Ac YC 40 -0 -0 0. UG 74 TR ti OD 68 7- 7- 00 51 EI ve ON 51 20 20 0 MA 3 CH E 50 11 11 RT HC 1 RI L CH 15 AR D MG TA BL ET 00 06 [address] 15 OS Ac 37 -0 -0 .0 UG 74 TR ti 81 7- 7- 00 51 EI ve 08 20 20 MA 4 CH 90 11 11 RT 1 RI CH AR D ID 00 06 05 5 30 30 WI 33 BR Ac EM 04 -0 -1 .0 LS 66 OD ti AR 61 8- 3- 00 ON 04 SK ve IN 10 20 20 Y [address] KE 0. 1 UG NN 9 ET MG IN H C M TA BL ET ME 29 05 05 0 30 30 WI 37 OS Ac LO 30 -1 -1 .0 LS 14 TR ti XI 00 0- 0- 00 ON 62 EI ve CA 12 20 20 CH M [address] 15 0 UG RI CH MG IN AR C D TA BL ET OX 00 05 05 0 15 30 TH 20 OS Ac YC 40 -1 -1 0. E 07 TR ti OD 68 0- 0- 00 PH 02 EI ve ON 51 20 20 0 AR 9 CH E 50 11 11 MA HC 1 CY RI L CH 15 SH AR OP D MG TA BL ET BA 00 04 05 3 90 30 RI 19 TI Ac CL 17 -1 -0 .0 TE 36 BB ti OF 24 9- 7- 00 40 S ve EN 09 20 20 AI PH 66 11 11 D IL 10 0 PH LI AR P MG MA A CY TA BL 07 ET 85 6 # 07 85 ME 29 04 04 0 30 30 WI 36 OS Ac LO 30 -0 -1 .0 LS 82 TR ti XI 00 8- 2- 00 ON 30 EI ve CA 12 20 20 CH M [address] 15 0 UG RI CH MG IN AR C D TA BL ET ID 00 06 04 5 30 30 WI 33 BR Ac EM 04 -0 -1 .0 LS 66 OD ti AR 61 8- 1- 00 ON 04 SK ve IN 10 20 20 Y [address] KE 0. 1 UG NN 9 ET MG IN H C M TA BL ET ME 00 04 04 0 60 30 WI 36 OS Ac TH 60 -0 -1 .0 LS 82 TR ti OC 34 8- 1- 00 ON 29 EI ve AR 48 20 20 CH BA [address] MO 8 UG RI L CH 50 IN AR 0 C D MG TA BL ET OX 00 04 04 0 15 30 WI 36 OS Ac YC 60 -0 -1 0. LS 82 TR ti OD 34 8- 1- 00 ON 32 EI ve ON 99 20 20 0 CH E [address] HC 1 UG RI L CH 15 IN AR C D MG TA BL ET AZ 00 03 03 0 6. 5 WI 36 WE Ac IT 78 -2 -[address] ti HR 11 4- 4- 0 ON 15 ve OM 49 20 20 MU YC [address] RR IN 8 UG AY D 25 IN 0 C MG TA BL ET ME 29 03 03 0 30 30 WI 36 FI Ac LO 30 -1 -1 .0 LS 53 NC ti XI 00 1- 5- 00 ON 41 H ve CA 12 20 20 CH M [address] AR 15 0 UG LE S MG IN C TA BL ET AL 59 03 03 0 90 30 WI 36 FI Ac ID 76 -1 -1 .0 LS 53 NC ti AZ 23 1- 5- 00 ON 42 H ve OL 72 20 20 CH AM [address] AR 1 4 UG LE S MG IN C TA BL ET ME 00 03 03 0 60 30 WI 36 FI Ac TH 60 -1 -1 .0 LS 53 NC ti OC 34 1- 5- 00 ON 43 H ve AR 48 20 20 CH BA [address] AR MO 8 UG LE L S 50 IN 0 C MG TA BL ET OX 00 03 03 0 15 30 WI 36 FI Ac YC 60 -1 -1 0. LS 53 NC ti OD 34 1- 5- 00 ON 63 H ve ON 99 20 20 0 CH E [address] AR HC 1 UG LE L S 15 IN C MG TA BL ET ID 00 06 02 5 30 30 WI 33 BR Ac EM 04 -0 -1 .0 LS 66 OD ti AR 61 8- 6- 00 ON 04 SK ve IN 10 20 20 Y [address] KE 0. 1 UG NN 9 ET MG IN H C M TA BL ET 52 02 02 0 15 30 WI 36 FI Ac 15 -1 -1 0. LS 23 NC ti 20 6- 6- 00 ON 74 H ve 21 20 20 0 CH [address] AR 2 UG LE S IN C AL 59 02 02 0 90 30 WI 36 FI Ac ID 76 -1 -1 .0 LS 23 NC ti AZ 23 6 6 ON 75 H ve OL 72 20 20 CH AM [address] AR 1 4 UG LE S MG IN C TA BL ET ME 29 02 02 0 30 30 WI 36 FI Ac LO 30 -1 -1 .0 LS 23 NC ti XI 00 6 ON 76 H ve CA 12 20 20 CH M [address] AR 15 0 UG LE S MG IN C TA BL ET ME 00 02 02 0 60 30 WI 36 FI Ac TH 60 -1 -1 .0 LS 23 NC ti OC 34 6 6- ON 77 H ve AR 48 20 20 CH BA [address] AR MO 8 UG LE L S 50 IN 0 C MG TA BL ET ME 29 01 01 0 30 30 WI 35 FI Ac LO 30 -1 -1 .0 LS 91 NC ti XI 00 ON 59 H ve CA 12 20 20 CH M [address] AR 15 0 UG LE S MG IN C TA BL ET 52 01 01 0 15 30 WI 35 FI Ac 15 -1 -1 0. LS 91 NC ti 20 ON 60 H ve 21 20 20 0 CH [address] AR 2 UG LE S IN C AL 59 01 01 0 90 30 WI 35 FI Ac ID 76 -1 -1 .0 LS 91 NC ti AZ 23 9- 9- 00 ON 61 H ve OL 72 20 20 CH AM [address] AR 1 4 UG LE S MG IN C TA BL ET OX 00 10 10 0 15 30 EA 19 FI Ac YC 40 -2 -[address] 73 NC ti OD 68 8- 8- 00 SI 45 H ve ON 51 20 20 0 DE CH E 50 10 10 AR HC 1 PH LE L AR S 15 MA CY MG OF TA BL CY ET NT HI AN A 00 10 10 0 30 30 EA 19 FI Ac 37 -2 -[address] 73 NC ti 81 8- 8- 00 SI 46 H ve 08 20 20 DE CH 90 10 10 AR 1 PH LE AR S MA CY OF CY NT HI AN A AL 00 10 10 0 90 30 EA 19 FI Ac ID 78 -2 -[address] 73 NC ti AZ 11 8- 8- 00 SI 48 H ve OL 07 20 20 DE CH AM 90 10 10 AR 1 1 PH LE AR S MG MA CY TA BL OF ET CY NT HI AN A ME 00 10 10 0 60 30 EA 19 FI Ac TH 60 -2 -[address] 73 NC ti OC 34 8- 8- 00 SI 49 H ve AR 48 20 20 DE CH BA 52 10 10 AR MO 1 PH LE L AR S 50 MA 0 CY MG OF TA BL CY ET NT HI AN A ID 00 09 10 3 30 30 EA 19 BR Ac EM 04 -2 -[address] 23 OD ti AR 61 1- 2- 00 SI 26 SK ve IN 10 20 20 DE Y 38 10 10 KE 0. 1 PH NN 9 AR ET MG MA H CY M TA BL OF ET CY NT HI AN A OX 00 09 09 0 15 30 EA 19 FI Ac YC 40 -3 -[address] 35 NC ti OD 68 0- 0- 00 SI 56 H ve ON 51 20 20 0 DE CH E 50 10 10 AR HC 1 PH LE L AR S 15 MA CY MG OF TA BL CY ET NT HI AN A AL 00 09 09 0 90 30 EA 19 FI Ac ID 78 -3 -[address] 35 NC ti AZ 11 0- 0- 00 SI 57 H ve OL 07 20 20 DE CH AM 90 10 10 AR 1 1 PH LE AR S MG MA CY TA BL OF ET CY NT HI AN A ME 00 09 09 0 60 30 EA 19 FI Ac TH 60 -3 -[address] 35 NC ti OC 34 0- 0- 00 SI 58 H ve AR 48 20 20 DE CH BA 52 10 10 AR MO 1 PH LE L AR S 50 MA 0 CY MG OF TA BL CY ET NT HI AN A 00 09 09 0 30 30 EA 19 FI Ac 37 -3 -[address] 35 NC ti 81 0- 0- 00 SI 59 H ve 06 20 20 DE CH 60 10 10 AR 1 PH LE AR S MA CY OF CY NT HI AN A ID 00 09 09 3 30 30 EA 19 BR Ac EM 04 -2 -[address] 23 OD ti AR 61 1- 1- 00 SI 26 SK ve IN 10 20 20 DE Y 38 10 10 KE 0. 1 PH NN 9 AR ET MG MA H CY M TA BL OF ET CY NT HI AN A OX 00 09 09 0 75 12 EA 19 FI Ac YC 40 -1 -[address] 15 NC ti OD 68 6- 6- 00 SI 81 H ve ON 51 20 20 DE CH E 50 10 10 AR HC 1 PH LE L AR S 15 MA CY MG OF TA BL CY ET NT HI AN A OX 00 09 09 0 75 12 EA 18 FI Ac YC 40 -0 -[address] 97 NC ti OD 68 2- 2- 00 SI 31 H ve ON 51 20 20 DE CH E 50 10 10 AR HC 1 PH LE L AR S 15 MA CY MG OF TA BL CY ET NT HI AN A 00 09 09 0 60 30 EA 18 FI Ac 59 -0 -[address] 97 NC ti 15 2- 2- 00 SI 32 H ve 38 20 20 DE CH 10 10 10 AR 1 PH LE AR S MA CY OF CY NT HI AN A AL 00 09 09 0 90 30 EA 18 FI Ac ID 78 -0 -[address] 97 NC ti AZ 11 2- 2- 00 SI 33 H ve OL 07 20 20 DE CH AM 90 10 10 AR 1 1 PH LE AR S MG MA CY TA BL OF ET CY NT HI AN A OX 00 08 08 0 75 12 EA 18 [place] Ac YC 40 -1 -[address] 76 TT ti OD 68 9- 9- 00 SI 91 EN ve ON 51 20 20 DE BA E 50 10 10 CH HC 1 PH L AR WI 15 MA LL CY IA MG M OF H TA BL CY ET NT HI AN A AL 59 08 08 0 90 30 WI 34 FI Ac ID 76 -0 -0 .0 LS 17 NC ti AZ 23 5- 5- 00 ON 83 H ve OL 72 20 20 CH AM [address] AR 1 4 UG LE S MG IN C TA BL ET OX 00 08 08 0 75 14 WI 34 FI Ac YC 60 -0 -0 .0 LS 17 NC ti OD 34 5- 5- 00 ON 84 H ve ON 99 20 20 CH E [address] AR HC 1 UG LE L S 15 IN C MG TA BL ET ME 00 08 08 0 60 30 WI 34 FI Ac TH 60 -0 -0 .0 LS 17 NC ti OC 34 5- 5- 00 ON 85 H ve AR 48 20 20 CH BA [address] AR MO 8 UG LE L S 50 IN 0 C MG TA BL ET CL 00 06 08 3 60 30 WI 33 BR Ac ON 37 -0 -0 .0 LS 66 OD ti AZ 81 8- 4- 00 ON 05 SK ve EP 91 20 20 Y AM [address] KE 0 UG NN 0. ET 5 IN H MG C M TA BL ET 00 08 08 0 24 6 HO 40 GR Ac 59 -0 -0 .0 ME 61 AY ti 10 3- 3- 00 52 , ve 54 20 20 CO 6 II 00 10 10 NV I 5 AL RICH ES HN CE I NT AI DS IN C 00 08 08 0 24 6 HO 40 GR Ac 59 -0 -0 .0 ME 61 AY ti 10 3- 3- 00 52 ve 54 20 20 CO 6 II 00 10 10 NV I 5 AL RICH ES HN CE I NT AI DS IN C PE 67 07 07 0 30 8 WI 34 AL Ac NI 25 -2 -2 .0 LS 08 LE ti CI 30 6- 6- 00 ON 22 N ve LL 20 20 20 BR IN [address] AN 0 UG DO VK N IN I 50 C 0 MG TA BL ET ID 00 03 07 3 30 30 WI 32 BR Ac EM 04 -1 -0 .0 LS 86 OD ti AR 61 7- 7- 00 ON 81 SK ve IN 10 20 20 Y [address] KE 0. 1 UG NN 9 ET MG IN H C M TA BL ET CL 00 06 07 3 60 30 WI 33 BR Ac ON 37 -0 -0 .0 LS 66 OD ti AZ 81 8- 7- 00 ON 05 SK ve EP 91 20 20 Y AM [address] KE 0 UG NN 0. ET 5 IN H MG C M TA BL ET CL 00 06 06 3 60 30 WI 33 BR Ac ON 37 -0 -0 .0 LS 66 OD ti AZ 81 8- 8- 00 ON 05 SK ve EP 91 20 20 Y AM [address] KE 0 UG NN 0. ET 5 IN H MG C M TA BL ET ID 00 03 06 3 30 30 WI 32 BR Ac EM 04 -1 -0 .0 LS 86 OD ti AR 61 7- 2- 00 ON 81 SK ve IN 10 20 20 Y [address] ZAMORA 0. 1 UG NN 9 ET MG IN H C M TA BL ET Procedures Procedure DOS Code Location Performer Comment RADIOLOGI 63394 [facility] [place] C EXAM 7 RADIOLOGY CHEST 2 VIEWS FRONTAL&L ATERAL RADEX 29918 [facility] [place] ANKLE 7 RADIOLOGY COMPLETE MINIMUM 3 VIEWS IADNA 56551 [facility] SOMPLX VIRUS AMPLIFIED PROBE TQ IADNA 82681 [facility] NEISSER[facility] ER JR GONORRHOE AE AMPLIFIED PROBE TQ IADNA 37881 [facility]AM[facility] ER JR TRACHOMAT IS AMPLIFIED PROBE TQ IADNA 70248 [facility] J[facility] ER JR SPECIES AMPLIFIED PROBE TQ IADNA 67744 [facility], [facility] GARDNEREL [facility] ER JR LA VAGINALIS AMPLIFIED PROBE TQ CYTP C/V 79030 [facility] AUTO THIN [facility] ER JR LYR PREPJ SCR MNL RESCR PHYS IADNA 18754 [facility] TRICHOMON [facility] ER JR VAGINALIS AMPLIFIED PROBE TECH RADEX 32654 [facility] [place] NIRMAL ANKLE 6 RADIOLOGY COMPLETE MINIMUM 3 VIEWS RADEX 02009 [facility] [place] NIRMAL FOOT 6 RADIOLOGY COMPLETE MINIMUM 3 [place] [address] [facility] ALL ABDOMINAL 6 MEDICAL REAL IMAGING [place] W/[place] [address] [facility]INE [facility] TOTAL INC INC COMPREHEN 13927 [facility] SIVE [facility] METABOLIC INC INC PANEL HEPATITIS 53006 [facility] C [facility] ANTIBODY INC INC LIPID 24413 [facility] PANEL 6 [facility] INC INC HEMOGLOBI 12261 [facility] N 6 [facility] GLYCOSYLA INC INC ALEAH A1C BLOOD 43371 [facility] COUNT 6 [facility] COMPLETE INC INC AUTO&AUTO DIFRNTL WBC HEPATITIS 86756 [facility] B CORE 6 [facility] ANTIBODY INC INC HBCAB TOTAL HEPATITIS 30851 [facility] [place] SURF 6 [facility] [address] [facility] HEPATITIS 6 [facility] B INC INC SURFACE ANTIGEN COLLECTIO 67884 [facility] N VENOUS 6 [facility] [place] [address] [facility] THYROID 6 [facility] STIMULATI INC INC NG HORMONE TSH HEPATITIS 36369 [facility] A 6 [facility] ANTIBODY INC INC HAAB ALBUMIN 76840 [facility] URINE 6 [facility] MICROALBU INC INC MIN QUANTIATI VE CT THORAX 28915 [facility] [place] BROWN 6 RADIOLOGY RAY W/CONTRAS T MATERIAL RADIOLOGI [address] [facility] [place] [address] EXAM 6 RADIOLOGY MOIRA CHEST 2 VIEWS FRONTAL&[place] [address] [facility] [place] PE[place] JAM CERVICAL 6 RADIOLOGY SPINE W/O CONTRAST MATERIAL BLOOD 41538 [facility] SMEAR 6 DIAGNOSTI DIAGNOSTI PERIPHERA CS CS L INTERP PHYS W/WRIT REPORT BLOOD 14299 [facility] COUNT 6 DIAGNOSTI DIAGNOSTI COMPLETE CS CS AUTO&AUTO DIFRNTL WBC RADIOLOGI 53016 [facility] [place] AIDA C EXAM 6 RADIOLOGY DONNIE CHEST 2 VIEWS FRONTAL&[place] [address] [facility] [place] ABDOMEN & 6 RADIOLOGY LD IV ALL PELVIS W/O CONTRAST MATERIAL THERAPEUT 09254 [facility]AS[facility] VILLASEÑOR IC PX 1/> 5 [facility] EACH 15 MIN EXERCISES PHYSICAL 54158 [facility] THERAPY 5 [facility] N ELECTRICA A4595 [facility] INC EMPI INC L 4 STIMULATO R SUPPLIES 2 LEAD PER MONTH ELECTRICA A4595 [facility] INC EMPI INC L 4 STIMULATO R SUPPLIES 2 LEAD PER MONTH ELECTRICA A4595 [facility] INC EMPI INC L 4 STIMULATO R SUPPLIES 2 LEAD PER MONTH ACUTE 78058 [facility] HEPATITIS 4 [facility] HEPATITIS 56967 [facility] A 4 [facility] HAAB COLLECTIO 10679 [facility]EN[facility] VENIPUNCT URE HEPATITIS 79208 [facility] CORE 4 [facility] HBCAB TOTAL HEPATITIS 63456 [facility] SURF 4 [facility] HBSAB BLOOD 92411 [facility] COUNT 4 [facility] AUTOMATED HEPATIC 76226 [facility] FUNCTION 4 [facility] ELECTRICA A4595 EMPI INC EMPI INC L 4 STIMULATO R SUPPLIES 2 [place] [address] [facility] 4 Y Y PATHOLOGY [facility] GROSS&LEELEE ROSCOPIC EXAM INFUSION J7030 [facility] 4 Y Y SALINE [facility] SOLUTION 1000 CC COLONOSCO 87778 [facility] PY 4 Y Y W/BIOPSY [facility] SINGLE/MU LTIPLE ANES 87434 MI MI LOWER 4 SONNY SONNY INTESTINE ENDOSCOPY DISTAL DUODENUM ELECTRICA A4595 EMPI INC EMPI INC L 4 STIMULATO R SUPPLIES 2 LEAD PER MONTH HEPATOBIL 85854 [facility] SYST 4 [facility] IMAG INC INC INC GB W/PHARMA INTERVENJ INJECTION J2805 [facility] 4 [facility] SINCALIDE INC INC 5 MICROGRAM S TECHNETIU A9537 [facility] TC-99M 4 [facility] MEBROFENI INC INC N DX UP TO 15 MCI RADIOLOGI 98018 AM[facility]CAR AMILCAR C 4 DONITA DONITA EXAMINATI ON KNEE 3 VIEWS INJECTION J2805 [facility] 4 [facility] SINCALIDE INC INC 5 [place]CRO[place] NJX 39992 [facility] DX/THER 4 [place]D FORD AGT PVRT FACET JT CRV/THRC 2ND LEVEL NJX 28002 [facility] DX/THER [address] AGT PVRT SURGERY SURGERY FACET JT CENTER CENTER CRV/THRC 3+ LEVEL NJX 34927 [facility] [place] DX/THER 4 FORD FORD AGT PVRT FACET JT CRV/THRC 1 LEVEL RADEX 58090 AMILCAR AMILCAR SPINE 4 DONITA DONITA LUMBOSACR AL MINIMUM 4 VIEWS RADIOLOGI 57583 [facility] C EXAM 4 MEM [facility] HOS[facility] CHEST 2 INC INC VIEWS FRONTAL&[place] [address] AMILCAR AMILCAR ABDOMINAL 4 DONITA DONITA REAL TIME W/IMAGE LIMITED ECHO 56041 [place] TABARES TTHRC R-T 4 JR DEBBIE JR DEBBIE 2D W/WOM-MOD E COMPL SPEC&COLR D SPMTRY 06050 [facility] MUR W/VC 4 EXPIRATOR Y TAMIA W/WO MXML VOL VNTJ ANNUAL G0444 GABRIEL [place] AYSHA DEPRESSIO 4 Saroj FIGUEROA MD,PSC SCREENING 15 MINUTES IAADIADOO 30637 [facility] MUR 3 STREPTOCO CCUS GROUP A IAADIADOO 46060 [facility] MUR 3 INFLUENZA LOCM Q9967 [facility] [phone] Y Y MG/ML [facility] [place] [address] MIKEY MIKEY ABDOMEN & 3 ADR ADR [place] [address] [facility] GAMMAGLOB 3 Y Y ULIN IGA [facility] IGD IGG IGM EACH IMMUNOASS 96934 [facility] AY 3 Y [facility] QUAL/[place] [address] [facility] THYROID 3 Y Y STIMULATI [facility] NG HORMONE TSH COLLECTIO 89937 [facility] N VENOUS 3 Y Y BLOOD [facility] VENIPUNCT URE RADEX ABD 42489 NICKELS NICKELS COMPL 3 FREDDIE FREDDIE AQT ABD W/S/E/D VIEWS 1 VIEW CH INJECTION J2250 [facility] 3 Y Y MIDAZOLAM [facility] HCL PER 1 MG EGD 22302 [facility] TRANSORAL 3 Y Y BIOPSY [facility] SINGLE/[place] [address] GUERRERO GUERRERO SURG 3 DEBBIE DEBBIE PATHOLOGY GROSS&LEELEE ROSCOPIC EXAM INJECTION [id number] [facility] FENTANYL 3 Y Y CITRATE [facility] 0.1 MG COLLECTIO 54851 [facility] N VENOUS [address] [place] [address] [place] [address] [facility] AMYLASE [address] [place] [address] URNLS DIP 44159 [facility] [address] [place] [address] [facility] LET REAGENT AUTO MICROSCOP Y BLOOD 44983 [facility] COUNT [address] [place] [address] AUTO&[place] [address] [facility] LIPASE [address] [place] [address] COMPREHEN 94800 [facility] SIVE [address] [place] [address] PANEL CULTURE 93420 [facility] BACTERIAL [address] [place] [address] [place] [address] [facility] ABDOMINAL 3 [facility] TIME W/IMAGE LIMITED VSTBLR 63104 HERDER HERDER FUNCJ 3 [facility]FT[facility] FOVL&PERP H STIMJ OSCIL TRK SINUSOIDA 06461 HERDER HERDER L 3 [facility]FT[facility] AFTBA VERTICAL AXIS ROTATIONA L TESTING CALORIC 43658 HERDER HERDER VESTIBULA 3 [facility] AFTAB R TEST EA IRRIGATIO N W/RECORD RADEX 15633 ESTIVEN MAT ESTIVEN MAT ESOPHAGUS 3 NERVE 48031 [facility] CONDUCTIO 3 [facility] N STUDIES 5-[address] [place] [place] [address] SPINAL 3 [facility] CERVICAL W/O CONTRAST MATRL MRI [address] SPINAL 3 [facility] LUMBAR W/O CONTRAST MATERIAL MOTOR 48979 [facility] BAI &/SENS 3 [facility] NRV CNDJ PRECONF ELTRD ARRAY LIMB THERAPEUT 49152 [place] IC PX 1/> 2 [facility] EACH 15 MIN EXERCISES E-STIM G0283 [facility] 1/> AREAS 2 [facility] TX PLAN E-STIM G0283 [facility] 1/> AREAS 2 [facility] TX PLAN THERAPEUT 09876 [facility] IC PX 1/> 2 [facility] EACH 15 MIN EXERCISES CALORIC 08920 [facility]UM[facility] BAI VESTIBULA 2 [facility] R TEST EA IRRIGATIO N W/RECORD SINUSOIDA 52954 [facility] BAI L 2 [facility] VERTICAL AXIS ROTATIONA L TESTING SPONTANEO 72286 [facility] BAI US 2 [facility] NYSTAGMUS TEST PHYSICAL 74182 [facility] THERAPY 2 [facility] N CYTP 91867 [facility] LABORATOR CERV/VAG 1 AMERIC Y MEAGHAN OF AUTO THIN HOLDINGS NORMA LAYER H PREP MNL SCREEN IADNA 30830 [facility] MEAG[facility]AN GARDNEREL 1 AMERIC AMERIC LA HOLDINGS HOLDING VAGINALIS DIRECT PROBE TQ IADNA 96858 [facility] LABORATOR PAPILLOMA 1 AMERIC Y MEAGHAN OF VIRUS HOLDINGS NORMA HUMAN H AMPLIFIED PROBE TQ IADNA 39567 [facility]AGHAN TRICHOMON 1 AMERIC AMERIC HOLDINGS HOLDING VAGINALIS DIRECT PROBE TQ IADNA 73759 [facility] LAB MEAGHAN JUAN 1 AMERIC AMERIC SPECIES HOLDINGS HOLDING DIRECT PROBE TQ OPTKINETI 22178 PHYSICIAN YOMI GRE C [facility]ST[facility] 1 S BIDIR/FOV SERVICES EAL/PERIP H STIM W/REC SPONTANEO 03164 PHYSICIAN YOMI GRE US 1 S NYSTAGMUS SERVICES TEST SINUSOIDA 58623 PHYSICIAN YOMI GRE L 1 S VERTICAL SERVICES AXIS ROTATIONA L TESTING POSITIONA 95416 PHYSICIAN YOMI GRE L 1 S NYSTAGMUS SERVICES TEST CALORIC 78534 PHYSICIAN YOMI GRE VESTIBULA 1 S R TEST EA SERVICES IRRIGATIO N W/RECORD DRUG SCR G0434 [place] [facility] YAV NOT 1 [facility] RAPHIC; ANY NUMBER PT ENC SPMTRY 96319 [facility] [facility] W/VC 1 EXPIRATOR Y TAMIA W/[place] [address] [place] A[place]OMINAL 1 [facility] TIME W/[place] [address] [facility] [place] MAT ABDOMINAL 1 RADIOLOGY REAL TIME W/IMAGE LIMITED MRI 61860 [place] [facility] SPINAL 1 R OPEN MALCOLM CANAL MRI CERVICAL W/O CONTRAST MATRL 3D 96651 [place] [facility] RENDERING 1 R OPEN MALCOLM W/INTERP MRI & POST[place]E [place] [address] [place] [facility] SPINAL 1 R OPEN MALCOLM CANAL MRI LUMBAR W/O CONTRAST MATERIAL DEEP D9220 ALVIN I COPELAND III, SEDATION/ 0 COPELAND III ALVIN I GENERAL PSC N0 3 ANESTHESI A-1ST 30 MINUTES OPH 54964 SHAKIRA WIN, MEDICAL 0 VISION JOSE M XM&EVAL COMPRE NEW PT 1/> VST Encounters Encounter Start End Date Code Location Performer Type Date EMERGENCY 13741 [facility] 7 7 [facility] EMERGENCY T VISIT PHYS HIGH/URGE NT SEVERITY EMERGENCY 89697 [facility] 7 7 [facility] EMERGENCY T VISIT PHYS MODERATE SEVERITY OFFICE 76094 [facility] KARI OUTPATIEN 7 7 PHYSICIAN T VISIT S GROUP 25 MINUTES OFFICE 80766 [facility] PETTEY OUTPATIEN 7 7 PHYSICIAN T NEW 30 S GROUP MINUTES EMERGENCY 71913 [facility] 7 7 [facility] DEPARTMEN INC T VISIT LIMITED/M [facility] - 7 7 [facility] OUTPATIEN INC T EMERGENCY 08544 [facility] ARNOLD 7 7 TESSY DEPARTMEN EMERGENCY T VISIT PHYS MODERATE SEVERITY OFFICE 68571 [facility] FRYMAN OUTPATIEN 6 6 PHYSICIAN T VISIT S GROUP 15 MINUTES EMERGENCY 67439 [facility] CHANDEL 6 6 TESSY DEPARTMEN EMERGENCY T VISIT PHYS MODERATE SEVERITY EMERGENCY 39159 [facility] ARNOLD 6 6 [facility] EM[facility]ENC[facility] T VISIT PHYS HIGH/URGE NT SEVERITY HOSPITAL [facility] - 6 6 [facility] OUTPATIEN INC T OFFICE 41402 [facility] KARI OUTPATIEN 6 6 PHYSICIAN LEELEE T VISIT S GROUP 15 MINUTES HOSPITAL [facility] - 6 6 [facility] OUTPATIEN INC T OFFICE 12653 [facility] KARI OUTPATIEN 6 6 PHYSICIAN LEELEE T VISIT S GROUP 25 MINUTES HOSPITAL CAR[facility] - 6 6 [facility] OUTPATIEN INC T OFFICE 38109 [facility] OUT[facility] 6 6 HEALTH HEN T VISIT MEDICAL 10 GROUP MINUTES EMERGENCY 04822 [facility] SWINEY 6 6 TESSY PAT DEPARTMEN EMERGENCY T VISIT PHYSI HIGH/URGE NT SEVERITY EMERGENCY 67588 [facility] CANDELARIA DEPT 6 6 TESSY LIA VISIT EMERGENCY HIGH PHYSI SEVERITY& THREAT FUNCJ EMERGENCY 41854 [facility] GAYHEART 6 6 TESSY AYSHA DEPARTMEN EMERGENCY T VISIT SERV HIGH/URGE NT SEVERITY OFFICE 97635 [facility] OUTPATIEN 6 6 POINT AYSHA T VISIT FAMILY 15 CARE, IN MINUTES EMERGENCY 79712 [facility] RICHARD 6 6 TESSY N RIDGE DEPARTMEN EMERGENCY T VISIT PHYSI MODERATE SEVERITY EMERGENCY 41350 [facility] DEPT 6 6 TESSY PHI VISIT EMERGENCY HIGH PHYSI SEVERITY& THREAT FUNCJ EMERGENCY 35056 [facility] 6 6 TESSY LIA DEPARTMEN EMERGENCY T VISIT PHYSI HIGH/URGE NT SEVERITY OFFICE 40597 [facility] 5 5 PHYSICIAN LEELEE T VISIT S GROUP 15 MINUTES EMERGENCY 22894 [facility] 5 5 TESSY PAT DEPARTMEN EMERGENCY T VISIT PHYS MODERATE SEVERITY EMERGENCY 05427 NEISHA WILL 5 5 PHYSICIAN RAMÓN DEPARTMEN S, PLLC T VISIT MODERATE SEVERITY [facility] [place] - 5 5 [facility] 5 [facility] EMERGENCY 35479 [facility] 4 4 TESSY ABDIRASHID DEPARTMEN EMERGENCY T VISIT PHYS HIGH/URGE NT SEVERITY [facility] [place] - 4 4 [facility]ERS[facility] - [address] [facility] CARL - 4 [address] [facility] - 4 4 [facility] - 4 4 [facility] OFF[facility] 22944 ADIEL ANT ADIEL ANT OUTPATIEN 4 4 T VISIT 25 MINUTES EMERGENCY 71482 ALEX [facility]CK[facility]TH 4 4 DEPARTMEN T VISIT HIGH/URGE NT SEVERITY OFFICE 15177 [facility] OUTPATIEN 4 4 T VISIT 15 MINUTES OFFICE 50023 GABRIEL [place] AYSHA OUTPATIEN 4 4 Antwan FIGUEROA MD,PSC MINUTES OFFICE 10273 [facility] 4 4 T VISIT 15 MINUTES OFFICE 24443 [facility] OUTPATIEN 3 3 T VISIT 25 MINUTES HOSPITAL UNIVERSIT - 3 3 Y [facility] T OFFICE 29611 ADIEL ANT ADIEL ANT CONSULTAT 3 3 ION NEW/ESTAB PATIENT 60 MIN HOSPITAL UNIVERSIT - 3 3 Y [facility] T EMERGENCY 27640 ECKERLINE ECKERLINE 3 3 JR GABRIELLE JR GABRIELLE [facility] T VISIT MODERATE SEVERITY EMERGENCY 51062 UNIVERSIT 3 3 Y [facility] T VISIT HIGH/URGE NT SEVERITY HOSPITAL UN[facility]ERSIT - 3 3 Y [facility] T OFFICE 87422 YOMI GRE YOMI GRE [facility] 3 3 T VISIT 25 MINUTES EMERGENCY 05459 PEYTON TODD 3 3 [facility] T VISIT MODERATE SEVERITY HOSPITAL UNIVERSIT - 3 3 Y [facility] T OFFICE 44631 [facility] OUTPATIEN 3 3 T VISIT 15 MINUTES OFFICE 15695 BHUM[facility]A BAI OUTPATIEN 3 3 SONNY SONNY T VISIT 15 MINUTES [facility] [place] - 3 3 [facility] T OFFICE 23485 [facility] OUTPATIEN 3 3 T VISIT 15 MINUTES OFFICE 10517 [facility] 3 3 AFTAB AFTAB T VISIT 15 MINUTES [facility] [place] - 3 3 [facility] T OFFICE 76576 [facility] OUTPATIEN 3 3 T VISIT 15 MINUTES OFFICE 61958 [facility] OUTPATIEN 3 3 SONNY SONNY T VISIT 25 MINUTES OFFICE 78617 [facility]AI OUTPATIEN 3 3 SONNY SONNY T VISIT 25 MINUTES EMERGENCY 96512 KEELY RIGGS GONZALO 3 3 DEPARTMEN T VISIT MODERATE SEVERITY OFFICE 06144 YOMI GRE YOMI GRE OUTPATIEN 2 2 T VISIT 25 MINUTES [facility] [place] - 2 2 [facility] T OFFICE 09429 [facility] OUTPATIEN 2 2 T VISIT 25 MINUTES OFFICE 53041 YOMI GRE YOMI GRE OUTPATIEN 2 2 T VISIT 25 MINUTES EMERGENCY 23379 NIKA MAHER 2 2 PHI PHI DEPARTMEN T VISIT HIGH/URGE NT SEVERITY OFFICE 81018 [facility] 2 2 MAR MAR T VISIT 15 MINUTES EMERGENCY 57051 CHIP BARBOSAMAN 2 2 ALEX ALEX DEPARTMEN T VISIT MODERATE SEVERITY OFFICE 17803 [facility] OUT[facility] 1 1 MAR MAR T VISIT 15 MINUTES OFFICE 68074 CATHERINE ALEXANDER OUTPATIEN 1 1 BECKI BECKI T VISIT 15 MINUTES OFFICE 57648 PHYSICIAN YOMI GRE OUTPATIEN 1 1 S T VISIT SERVICES 15 MINUTES OFFICE 53149 PHYSICIAN YOMI GRE OUTPATIEN 1 1 S T VISIT SERVICES 15 MINUTES OFFICE 59613 PHYSICIAN YOMI GRE OUTPATIEN 1 1 S T VISIT SERVICES 15 MINUTES OFFICE 21442 PHYSICIAN YOMI GRE OUTPATIEN 1 1 S T VISIT SERVICES 15 MINUTES OFFICE 92313 PHYSICIAN YOMI GRE OUTPATIEN 1 1 S T NEW 30 SERVICES MINUTES OFFICE 16278 [facility] OUTPATIEN 1 1 [facility] T VISIT E CENTER 15 MINUTES OFFICE 59511 [place] FATIMAH PHI CONSULTAT 1 1 MEDICAL ION SERV NEW/ESTAB FOUNDATIO PATIENT 40 MIN OFFICE 70474 [facility] 1 1 T NEW 30 MINUTES [facility] 1 [facility] T OFFICE 21049 ALVIN COPELAND III, OUTPATIEN 0 0 MIN JOHNSON 20 PSC N0 3 MINUTES
--- OUTSIDE RECORDS SUMMARY | 2016-12-25 18:47 | External Medical Summary Rpt ---
Author Author , JERRICA BECERRIL Address Unknown Phone [email or web address] Care Team Providers Care Talent Coordinator Name Role Phone AIDA DONNIE, AIDA Unavailable Unavailable DONNIE LU ALFONSO, LU Unavailable Unavailable ALFONSO ARNJENNIFER, KRYSTINAOLD Unavailable Unavailable MALLORY SCHULTZ, ARNOLD Unavailable Unavailable MARION FIGUEROA, Unavailable Unavailable ,PSC, GABRIEL FIGUEROA MD,PSC [facility] Unavailable Unavailable [facility], [facility] TODD SONNY, TODD Unavailable Unavailable SONNY TODD SONNY, TODD Unavailable Unavailable SONNY LIU ALL, LIU ALL Unavailable Unavailable ADIEL ANT, ADIEL ANT Unavailable Unavailable ADIEL ANT, ADIEL ANT Unavailable Unavailable [facility] Unavailable Unavailable [facility]ITAL, [facility] JAM, [facility] Unavailable Unavailable AG AYSHA, AG Unavailable [...] [facility] Unavailable Unavailable [facility] Unavailable [place] [place] ECKERLINE JR GABRIELLE, Unavailable [...] AFTAB HERDER AFTAB, HERDER Unavailable Unavailable AFTAB [facility], Unavailable Unavailable [facility] Unavailable [facility]available [facility] Unavailable Unavailable ZEIGLER, [facility] RIGGS GONZALO, RIGGS GONZALO Unavailable Unavailable CATHERINE BECKI, CATHERINE Unavailable Unavailable BECKI CATHERINE BECKI, CATHERINE Unavailable Unavailable [facility]EC[facility] Unavailable Unavailable [facility], [facility] Unavailable Unavailable [facility], [facility] Unavailable Unavailable [facility], [facility] STOUT FORD, STOUT Unavailable Unavailable [facility] Unavailable [facility]available [facility] NICOLETTE RAMÓN, NICOLETTE Unavailable Unavailable RAMÓN MCKEMIE [...] [facility] Unavailable Unavailable [id number] [address] [id number], [facility] [id number] # [id number] [place] SONNY, [place] Unavailable Unavailable SONNY SCALF, SCALF Unavailable Unavailable SCALF NIRMAL, SCALF NIRMAL Unavailable Unavailable SCALF NIRMAL, SCALF NIRMAL Unavailable Unavailable SCIFRES, JOSE M, Unavailable Unavailable SCIFRES, JOSE M CANDELARIA, CANDELARIA Unavailable Unavailable CANDELARIA LIA, [...] SHOP FATIMAH PHI, FATIMAH PHI Unavailable Unavailable [facility], Unavailable Unavailable [facility] MAHER PHI, MAHER Unavailable Unavailable PHI MAHER [...] R062 WHEEZING 07-06-2016 [facility] PHYS [id number] UNSPECIFIED 06-28-2016 [facility] INJURY PHYSICIANS LEFT ANKLE GROUP SUBSEQUENT ENCNTR [id number] SPRAIN 06-14-2016 [facility] OTHER PHYSICIANS LIGAMENT LT GROUP ANKLE INITIAL ENCOUNTER G8921 CHRONIC 06-01-2016 [facility] DUE TO [facility] TRAUMA INC R58627 PAIN IN 06-01-2016 [facility] LEFT FOOT [facility] INC Z720 TOBACCO USE 06-01-2016 [facility] INC R94993 PAIN IN 05-30-2016 [facility] [place] LEFT ANKLE RADIOLOGY [id number] SPRAIN UNS 05-30-2016 [facility] LIGAMENT N EMERGENCY LEFT ANKLE PHYS INITIAL ENCOUNTER Y93F2 ACTIVITY 05-30-2016 [facility] CAREGIVING N EMERGENCY LIFTING PHYS A599 TRICHOMONIA 05-18-2016 [facility] UNSPECIFIED B9689 OTH SPEC 05-18-2016 [facility] BACTERIAL [facility] AGNT CAUSE DZ CLASSIFIED ELSW J0100 ACUTE 05-18-2016 [facility] MAXILLARY PHYSICIANS SINUSITIS GROUP UNSPECIFIED N898 OTHER 05-18-2016 [facility] SPECIFIED LLC NONINFLAMMA TORY DISORDERS VAGINA I60065 ENCOUNTER 05-18-2016 [facility] 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 RTN W/O ABNORMAL FIND Z139 ENCOUNTER 05-18-2016 [facility] FOR PHYSICIANS SCREENING GROUP UNSPECIFIED [id number] SPRAIN 04-10-2016 [facility] TARSOMETATA N EMERGENCY RSAL PHYS LIGAMENT LT FOOT INIT ENC [id number] SLIP TRIP & 04-10-2016 [facility] STUMBLING N EMERGENCY W/O FALLING PHYS UNS INIT ENC R1011 RIGHT UPPER 04-07-2016 [place] [facility] E119 TYPE 2 03-29-2016 [facility] DIABETES PHYSICIANS MELLITUS GROUP WITHOUT COMPLICATIO NS E663 OVERWEIGHT 03-29-2016 [facility] PH[facility]ANS GROUP E785 HYPERLIPIDE 03-29-2016 [facility] KENNY PHYSICIANS UNSPECIFIED GROUP G629 POLYNEUROPA 03-29-2016 [facility] THY PHYSICIANS UNSPECIFIED GROUP M549 DORSALGIA 03-29-2016 [facility] UNSPECIFIED PHYSICIANS GROUP Z1231 ENCOUNTER 03-29-2016 [facility] SCREENING PHYSICIANS MAMMO MALIG GROUP NEOPLASM BREAST K219 GASTRO-ESOP 02-09-2016 [facility] H REFLUX PHYSICIANS DISEASE GROUP WITHOUT ESOPHAGITIS B850 PEDICULOSIS 12-30-2015 [facility] DUE TO HEALTH PEDICULUS MEDICAL HUMANUS GROUP CAPITIS J40 BRONCHITIS 12-04-2015 [facility] N EMERGENCY SPECIFIED PHYSI ACUTE OR CHRONIC R0789 OTHER CHEST 12-04-2015 [facility] [place] PAIN RADIOLOGY R091 PLEURISY 12-04-2015 [facility] EMERGENCY PHYSI M542 CERVICALGIA 11-18-2015 [facility] [place] RADIOLOGY H034QVX STRAIN 11-18-2015 [facility] MUSCLE FASC N EMERGENCY & TENDON SERV NECK LEVL INIT ENC E46KTHL EXPOSURE TO 11-18-2015 [facility] OTHER N EMERGENCY SPECIFIED SERV FACTORS INITIAL ENC B65913 ELEVATED 11-15-2015 [facility] CELL COUNT UNSPECIFIED G2581 RESTLESS 11-15-2015 [facility] SYNDROME R7309 OTHER 11-15-2015 [facility]AL [facility] GLUCOSE R0781 PLEURODYNIA 10-13-2015 [facility] EM[facility]ENC[facility] PHYSI R1030 LOWER 10-03-2015 [facility] [place] ABDOMINAL RADIOLOGY PAIN UNSPECIFIED M545 LOW BACK 08-12-2015 [facility] PAIN N EMERGENCY PHYSI 55508 METHICILLIN 02-02-2015 [facility] RESISTANT PHYSICIANS STAPHYLOCOC GROUP CUS AUREUS 78696 OTHER 02-02-2015 [facility] CHRONIC PHYSICIANS PAIN GROUP 490 BRONCHITIS 02-02-2015 [facility] NOT PHYSICIANS SPECIFIED GROUP ACUTE OR CHRONIC 7231 CERVICALGIA 02-02-2015 [facility] PHYS[facility]ANS GROUP 460 ACUTE 01-26-2015 [facility] NASOPHARYNG N EMERGENCY ITIS PHYS 6250 DYSPAREUNIA 01-26-2015 [facility] PHYS 6273 POSTMENOPAU 01-26-2015 [facility] RAISA N EMERGENCY ATROPHIC PHYS VAGINITIS 7841 THROAT PAIN 01-26-2015 [facility] N EMERGENCY PHYS 462 ACUTE 01-15-2015 [facility] PHARYNGITIS PHYSICIANS, [facility] 7242 LUMBAGO 06-22-2014 [facility] V571 OTHER 06-22-2014 [facility] 41247 CHRONIC 05-06-2014 [facility] OBSTRUCTIVE N EMERGENCY ASTHMA PHYS UNSPECIFIED 06319 WHEEZING 05-06-2014 [facility] N EMERGENCY PHYS 03654 OTHER 03-05-2014 [facility] SPECIFIED ARTHROPATHY PELVIC REGION&THIG H 7291 UNSPECIFIED 03-05-2014 [facility] MYALGIA AND MYOSITIS 7905 OTHER 12-23-2013 [facility] SERUM ENZYME LEVELS 2113 BENIGN 11-26-2013 [place] NEOPLASM [facility] COLON 4550 INTERNAL 11-26-2013 [facility] WITHOUT MENTION COMP 52629 UNSPECIFIED 11-26-2013 [facility] CONSTIPATIO N 5781 BLOOD IN 11-26-2013 [facility] 97305 ABDOMINAL 11-26-2013 [facility] GENERALIZED 94843 NAUSEA 10-09-2013 [facility] ALONE DONITA 91340 ABDOMINAL 10-09-2013 [facility] PAIN, DONITA UNSPECIFIED SITE 28344 ABDOMINAL 10-09-2013 [facility] RIGHT [facility] UPPER INC QUADRANT 81890 PAIN IN 09-30-2013 [facility] JOINT, DONITA LOWER LEG E8889 UNSPECIFIED 09-30-2013 [facility] FALL DONITA V642 SURG/OTH 09-25-2013 [facility] PROC NOT [facility] CARRIED OUT INC BECAUSE PTS DECN 7210 CERVICAL 09-10-[address] SPONDYLOSIS SURGERY WITHOUT CENTER MYELOPATHY 7213 LUMBOSACRAL 09-10-2013 [facility] DONITA SPONDYLOSIS WITHOUT MYELOPATHY 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 [facility] LUMBAR/LUMB DONITA OSACRAL INTERVERTEB RAL DISC 21949 SPINAL STEN 09-10-2013 [facility] LUMB REG DONITA W/O NEUROGENIC CLAUDICATIO N 486 PNEUMONIA, 09-02-2013 [facility] ORGANISM [facility] UNSPECIFIED INC 514 PULMONARY 09-02-2013 [facility] CONGESTION DONITA AND HYPOSTASIS 7862 COUGH 09-02-2013 [facility] DONITA 5758 OTHER 08-20-2013 [facility] SPECIFIED DONITA DISORDER OF GALLBLADDER 13339 FEVER 08-20-2013 MCSERAMIE JR UNSPECIFIED DEBBIE 03806 CHEST PAIN 08-20-2013 MCKEMIE JR UNSPECIFIED DEBBIE 7873 FLATULENCE 08-01-2013 ADIEL ANT ERUCTATION AND GAS PAIN 4658 ACUTE URIS 07-08-2013 [facility] DONITA OF OTHER MULTIPLE SITES 2893 LYMPHADENIT 07-03-2013 [facility] IS UNSPECIFIED EXCEPT MESENTERIC 4660 ACUTE 07-03-2013 [facility] BRONCHITIS 64441 ASTHMA, 07-03-2013 [facility] UNSPECIFIED , UNSPECIFIED STATUS 3544 CAUSALGIA 06-17-2013 [facility] OF UPPER HENRY LIMB ,PSC 7224 DEGENERATIO 06-17-2013 GABRIEL N OF HENRY CERVICAL ,PSC INTERVERTEB RAL DISC V790 SCREENING 06-17-2013 [facility] FOR HENRY DEPRESSION ,PSC 4871 INFLUENZA 04-22-2013 [facility] WITH OTHER RESPIRATORY MANIFESTATI ONS 5368 DYSPEPSIA&O 04-04-2013 [facility] DISORDERS FUNCTION STOMACH 85678 OTHER 04-02-2013 [facility] FREDDIE SYMPTOMS INVOLVING DIGESTIVE SYSTEM OTHER V1279 PERSONAL 04-02-2013 [facility] DISEASES DIGESTIVE DISEASE V4589 OTHER 04-02-2013 ECKERLINE POSTSURGICA JR GABRIELLE L STATUS OTHER 66056 INTERVERT 11-14-2012 [facility] GRE LUMB DISC D/O W/MYELOPATH Y LUMB REGION 7812 ABNORMALITY 11-14-2012 [facility] GRE OF GAIT V7109 OBSERVATION 11-14-2012 [facility] GRE OF OTHER SUSPECTED MENTAL CONDITION 6826 CELLULITIS 11-08-2012 TODD SONNY AND ABSCESS OF LEG EXCEPT FOOT 29034 UNSPECIFIED 11-04-2012 [facility] ESOPHAGITIS 31937 OTHER SPEC 11-04-2012 GUERRERO DEBBIE GASTRITIS WITHOUT MENTION HEMORRHAGE 7871 HEARTBURN 11-04-2012 LU ALFONSO 19126 REFLUX 10-31-2012 [facility] ESOPHAGITIS 3384 CHRONIC 10-15-2012 [facility] PAIN SYNDROME 7234 BRACHIAL 10-15-2012 [facility] NEURITIS OR RADICULITIS NOS 7238 OTHER 10-15-2012 [facility] SYNDROMES AFFECTING CERVICAL REGION 41390 ABDOMINAL 10-09-2012 SC[facility] NIRMAL PAIN, EPIGASTRIC 7919 OTHER 10-09-2012 [facility] EXAMINATION OF URINE 7804 DIZZINESS 09-17-2012 BALDEMAR UGALDE AND GIDDINESS E9352 OTH 09-17-2012 HERDLEANN UGALDE OPIATES&REL [place] [address] ESOPHAGEAL 09-09-2012 ESTIVEN MAT REFLUX 4549 ASYMPTOMATI 09-03-2012 [facility] C VARICOSE VEINS 7295 PAIN IN 08-20-2012 BHUMIKA SONNY SOFT TISSUES OF LIMB 64445 UNSPECIFIED 06-11-2012 [facility] SERVICES ARTHROPATHY OTHER SPECIFIED SITES 7220 DISPLCMT 06-11-2012 [facility]ANS CERV SERVICES INTERVERT DISC WITHOUT MYELOPATHY 76748 INTERVERT 02-21-2012 [facility] DISC CRITICAL ACCESS HOSPITAL D/O HOSPITAL W/MYELOPATH Y CERV REGION 7244 THORACIC/MARLA 02-21-2012 [facility] NEURITIS/RA HOSPITAL DICULITIS UNSPEC 8470 NECK SPRAIN 02-21-2012 [facility] V5789 OTHER 02-21-2012 [facility] ION PROCEDURE OTHER 4619 ACUTE 02-06-2012 [facility] SINUSITIS, UNSPECIFIED 5990 URINARY 07-03-2011 NIKA PHI TRACT INFECTION SITE NOT SPECIFIED 7840 HEADACHE 07-03-2011 NIKA PHI 41569 LUMP OR 06-26-2011 EDWARD JHONATAN MASS IN [...] MAR FOR MALIGNANT NEOPLASM OF THE CERVIX 31297 OSTEOARTHRO 03-22-2011 CATHERINE CONNELL S UNSPEC WHETHER GEN/LOC UNSPEC SITE 01453 PAIN IN 03-22-2011 CATHERINE CONNELL JOINT PELVIC REGION AND THIGH 8472 LUMBAR 03-14-2011 PHYSIC[facility]ANS SPRAIN AND SERVICES STRAIN V5883 ENCOUNTER 02-10-2011 PH[facility]IC[facility]ANS FOR SERVICES THERAPEUTIC DRUG MONITORING 66508 SPONDYLOSIS 01-20-2011 PHYSICIANS WITH SERVICES MYELOPATHY LUMBAR REGION 7211 CERVICAL 12-30-2010 PHYSICIANS SPONDYLOSIS SERVICES WITH MYELOPATHY 7230 SPINAL 12-30-2010 PHYSICIANS STENOSIS IN SERVICES CERVICAL REGION V5869 LONG-TERM 12-27-2010 [facility] (CURRENT) PRIMARY USE OF [facility]ARE [facility] OTHER MEDICATIONS 7245 UNSPECIFIED 12-01-2010 [facility] 496 CHRONIC 08-11-2010 [facility] AIRWAY OBSTRUCTION NEC 5718 OTHER 08-01-2010 [facility] [place] CHRONIC RADIOLOGY NONALCOHOLI C LIVER DISEASE 78923 UNSPECIFIED 08-01-2010 [facility] KIDNEY DISEASE 68139 ABDOMINAL 08-01-2010 [place], LEFT [facility] QUADRANT 12041 DISPLCMT 07-06-2010 [place] LUMBAR OPEN MRI INTERVERT DISC W/O MYELOPATHY 52609 SPASM OF 07-06-2010 [place] MUSCLE OPEN MRI 83717 SCOLIOSIS , 07-06-2010 [place] IDIOPATHIC OPEN MRI 5210 DENTAL 12-21-2009 ALVIN [...] 37 3- 4- 00 01 UC ve ID 26 20 20 01 [place] N 71 [...] 37 3- 7- 00 01 UC ve ID 26 20 20 01 [place] N 71 [...] 05 06 14 7 00 KE Ac OH 86 -2 -2 .0 00 NT ti [...] 5 19 CV CE S TA PH ID AR NO MA PH CY EN LL [...] 37 4- 5- 00 01 UC ve ID 26 20 20 01 [place] N 71 [...] 37 6- 7- 00 00 UC ve ID 26 20 20 96 [place] N 71 [...] PH AR MA CY #3 01 6 OH 00 02 03 15 5 00 KE Ac ED 14 -1 -2 .0 00 NT ti NI 39 6- 4- 00 01 UC ve SO 73 20 20 00 [place] NE 80 17 17 56 5 05 CV 20 S PH MG AR MA TA CY BL ET LL C, DB A CV S PH AR MA CY #3 01 6 OH 60 02 03 24 6 00 KE [...] PH AR MA CY #3 01 6 OH 00 02 03 10 5 00 KE [...] 37 3- 0- 00 00 UC ve ID 26 20 20 96 [place] N 71 [...] 37 7- 0- 00 00 UC ve ID 26 20 20 96 [place] N 71 [...] PH AR MA CY #3 01 6 OH 59 12 01 20 7 00 KE [...] 37 8- 9- 00 00 UC ve ID 26 20 20 96 [place] N 71 16 17 36 HC 0 47 CV L S ER PH AR 50 MA 0 CY MG LL TA C, BL ET DB A CV S PH AR MA CY #3 01 6 OH 00 07 10 3 30 30 RI [...] 10 10 0 30 30 WA 96 ID Ac TA 16 -0 -0 .0 LG 01 CK ti LO 20 7- 7- 00 RE 91 ve OH 05 20 20 EN GR AM 41 11 11 S EG 0 #5 OR HB 57 Y R 4 E 40 # 55 MG 74 TA BL ET AL 00 10 10 0 90 30 WA 96 ID Ac OH 22 -0 -0 .0 LG 01 CK ti AZ 82 7- 7- 00 RE 93 ve OL 03 20 20 EN GR AM 15 11 11 S EG 1 0 #5 OR 57 Y MG 4 E # TA 55 BL 74 ET OH 00 08 10 2 60 10 RI [...] 09 10 0 90 [address] [place] [address] 59 -2 -0 .0 LG 21 CK ti OC 13 3- 4- 00 RE 55 ve OD 20 20 20 EN GR ON 20 11 11 S EG -A 1 #9 OR CE 71 Y TA 2 E ID # NO 97 PH 12 EN 5- 32 5 BA 00 08 10 2 90 30 WA 27 RICH Ac CL 17 -0 -0 .0 LG 30 HN ti OF 24 9- 2- 00 RE 23 SO ve EN 09 20 20 EN N 76 11 11 S KE 20 0 #9 71 N MG 2 B # TA 97 BL 12 ET OH 00 07 09 3 30 30 RI [...] 9- 9- 00 RE 36 EY ve OH 05 20 20 EN AM 41 11 11 S BE 0 #9 NJ HB 71 AM R 2 IN 40 # B 97 MG 12 TA BL ET AL 00 09 09 0 [address] Ac OH 22 -0 -0 .0 LG 81 OR ti AZ 82 9- 9- 00 RE 37 EY ve OL 03 20 20 EN AM 15 11 11 S BE 1 0 #9 NJ 71 AM MG 2 IN # B TA 97 BL 12 ET BA 00 08 09 2 90 30 WA 27 RCIH Ac CL 17 -0 -0 .0 LG 30 HN ti OF 24 9- 5- 00 RE 23 SO ve EN 09 20 20 EN N 76 11 11 S KE 20 0 #9 71 N MG 2 B # TA 97 BL 12 ET OH 00 08 09 2 60 10 RI 20 SH Ac OM 60 -1 -0 .0 TE 68 OC ti ET 35 1- 3- 00 88 KE ve SALAZAR 43 20 20 AI Y ZI 82 11 11 D MA NE 1 PH RG AR AR 25 MA ET CY L MG 07 TA 85 BL 6 ET # 07 85 OH 00 07 08 3 30 30 RI [...] 07 ET 85 6 # 07 85 OH 00 08 08 2 60 10 RI [...] 0 60 30 WA 27 RICH Ac OH 22 -0 -1 .0 LG 30 HN [...] 07 90 30 RI 20 DA Ac OH 60 -1 -1 .0 TE 31 ti [...] 71 M 2 S # 97 12 OH 00 07 07 3 30 30 RI [...] 11 RT 1 RI CH AR D OH 00 06 05 5 30 30 WI [...] IN AR C D TA BL ET OH 00 06 04 5 30 30 WI [...] 0 90 30 WI 36 FI Ac OH 76 -1 -1 .0 LS 53 NC [...] 15 IN C MG TA BL ET OH 00 06 02 5 30 30 WI [...] 0 90 30 WI 36 FI Ac OH 76 -1 -1 .0 LS 23 NC [...] 0 90 30 WI 35 FI Ac OH 76 -1 -1 .0 LS 91 NC [...] 0 90 30 EA 19 FI Ac OH 78 -2 -[address] 73 NC [...] BL CY ET NT HI AN A OH 00 09 10 3 30 30 EA [...] 0 90 30 EA 19 FI Ac OH 78 -3 -[address] 35 NC [...] CY OF CY NT HI AN A OH 00 09 09 3 30 30 EA [...] 0 90 30 EA 18 FI Ac OH 78 -0 -[address] 97 NC [...] 0 90 30 WI 34 FI Ac OH 76 -0 -0 .0 LS 17 NC [...] 50 C 0 MG TA BL ET OH 00 03 07 3 30 30 WI [...] H MG C M TA BL ET OH 00 03 06 3 30 30 WI 32 BR Ac EM 04 -1 -0 .0 LS 86 OD ti AR 61 7- 2- 00 ON 81 SK ve IN 10 20 20 Y [address] ZAMORA 0. 1 UG NN 9 ET MG IN H C M TA BL ET Procedures Procedure DOS Code Location Performer Comment RADIOLOGI 13672 [facility] [place] SCALF C EXAM 7 RADIOLOGY CHEST 2 VIEWS FRONTAL&L ATERAL RADEX 14657 [facility] [place] MIREILLE ANKLE 7 RADIOLOGY COMPLETE MINIMUM 3 VIEWS IADNA 75477 [facility] HERPES 6 LLC ER JR SOMPLX VIRUS AMPLIFIED PROBE TQ IADNA 29664 [facility] NEISSERIA 6 LLC ER JR GONORRHOE AE AMPLIFIED PROBE TQ IADNA 96907 [facility], [facility] CHLAMYDIA 6 LLC ER JR TRACHOMAT IS AMPLIFIED PROBE TQ IADNA 51809 [facility] JUAN 6 LLC ER JR SPECIES AMPLIFIED PROBE TQ IADNA 35449 [facility], [facility] GARDNEREL 6 LLC ER JR LA VAGINALIS AMPLIFIED PROBE TQ CYTP C/V 01656 [facility] AUTO THIN 6 LLC ER JR LYR PREPJ SCR MNL RESCR PHYS IADNA 79859 [facility], [facility] TRICHOMON 6 LLC ER JR VAGINALIS AMPLIFIED PROBE TECH RADEX 47675 [facility] [place] SCALF NIRMAL ANKLE 6 RADIOLOGY COMPLETE MINIMUM 3 VIEWS RADEX 74491 [facility] [place] SCALF NIRMAL FOOT 6 RADIOLOGY COMPLETE MINIMUM 3 [place] [address] [place] [facility] ABDOMINAL 6 MEDICAL REAL IMAGING [place] W/[place] [address] [facility] THYROXINE 6 [facility] TOTAL INC INC COMPREHEN 58717 [facility] SIVE 6 [facility] METABOLIC INC INC PANEL HEPATITIS 07980 [facility] C 6 [facility]OS[facility] ANTIBODY INC INC LIPID 64862 [facility] PANEL 6 [facility]OS[facility] INC INC HEMOGLOBI 83342 [facility] N 6 [facility] MEM [facility]OS[facility] GLYCOSYLA INC INC ALEAH A1C BLOOD 37113 [facility] COUNT 6 [facility]OS[facility] COMPLETE INC INC AUTO&AUTO DIFRNTL WBC HEPATITIS 70540 [facility] B CORE 6 [facility] ANTIBODY INC INC HBCAB TOTAL HEPATITIS 04650 [facility] [place] SURF 6 [facility] [place] [address] [facility] HEPATITIS 6 [facility]OS[facility] B INC INC SURFACE ANTIGEN COLLECTIO 12124 [facility] N VENOUS 6 MEM H[facility] [place] [address] [facility] THYROID 6 MEM HOS[facility]OS[facility] STIMULATI INC INC NG HORMONE TSH HEPATITIS 70484 [facility] HENRY A 6 MEM HOS[facility] MEM [facility]OS[facility] ANTIBODY INC INC HAAB ALBUMIN 42745 [facility] URINE 6 [facility] MICROALBU INC INC MIN QUANTIATI VE CT THORAX 36958 [facility] [place] BROWN 6 RADIOLOGY RAY W/CONTRAS T MATERIAL RADIOLOGI [address] [facility] [place] [address] EXAM 6 RADIOLOGY MOIRA CHEST 2 VIEWS FRONTAL&[place] [address] [facility] [place] PENA JAM CERVICAL 6 RADIOLOGY SPINE W/O CONTRAST MATERIAL BLOOD 10346 [facility] SMEAR 6 DIAGNOSTI DIAGNOSTI PERIPHERA CS CS L INTERP PHYS W/WRIT REPORT BLOOD 54462 [facility] COUNT 6 DIAGNOSTI DIAGNOSTI COMPLETE CS CS AUTO&AUTO DIFRNTL WBC RADIOLOGI 30206 [facility] [place] AIDA C EXAM 6 RADIOLOGY DONNIE CHEST 2 VIEWS FRONTAL&[place] [address] [facility] [place] ABDOMEN & 6 RADIOLOGY LD IV ALL PELVIS W/O CONTRAST MATERIAL THERAPEUT 71696 KASI VILLASEÑOR IC PX 1/> 5 [facility] EACH 15 MIN EXERCISES PHYSICAL 31504 [facility] THERAPY 5 [facility] ELECTRICA A4595 EMPI INC EMPI INC L 4 STIMULATO R SUPPLIES 2 LEAD PER MONTH ELECTRICA A4595 [facility] INC EMPI INC L 4 STIMULATO R SUPPLIES 2 LEAD PER MONTH ELECTRICA A4595 [facility] INC EMPI INC L 4 STIMULATO R SUPPLIES 2 LEAD PER MONTH ACUTE 49943 [facility] HEPATITIS 4 [facility] HEPATITIS 58043 [facility] HAAB COLLECTIO 35449 [facility] VENOUS 4 [facility] VENIPUNCT URE HEPATITIS 24771 [facility] CORE 4 [facility] HBC[facility] TOTAL HEPATITIS 88456 [facility] SURF 4 [facility] HBSAB BLOOD 66077 [facility] COUNT 4 [facility] AUTOMATED HEPATIC 40058 [facility] FUNCTION 4 [facility] ELECTRICA A4595 EMPI INC EMPI INC L 4 STIMULATO R SUPPLIES 2 [place] [address] [facility] 4 Y Y PATHOLOGY [facility] GROSS&LEELEE ROSCOPIC EXAM INFUSION J7030 [facility] 4 Y Y SALINE [facility] SOLUTION 1000 CC COLONOSCO 66538 [facility] PY 4 Y Y W/BIOPSY [facility] SINGLE/MU LTIPLE ANES 39596 MI MI LOWER 4 SONNY SONNY INTESTINE ENDOSCOPY DISTAL DUODENUM ELECTRICA A4595 EMPI INC EMPI INC L 4 STIMULATO R SUPPLIES 2 LEAD PER MONTH HEPATOBIL 77203 [facility] SYST 4 [facility] IMAG INC INC INC GB W/PHARMA INTERVENJ INJECTION J2805 [facility] 4 [facility] SINCALIDE INC INC 5 MICROGRAM S TECHNETIU A9537 CARL Weaver TC-99M 4 [facility] MEBROFENI INC INC N DX UP TO 15 MCI RADIOLOGI 75267 AMILCAR AMILCAR C 4 DONITA DONITA EXAMINATI ON KNEE 3 VIEWS INJECTION J2805 CARL HENRY 4 [facility] SINCALIDE INC INC 5 [place] NJX [address]773 GIRISH HUDDLESTONON DX/THER 4 FORD FORD AGT PVRT FACET JT CRV/THRC 2ND [place] NJX [address] STONE STONE DX/THER [address] AGT PVRT SURGERY SURGERY FACET JT CENTER CENTER CRV/THRC 3+ [place]EL NJX 77222 GIRISH HUDDLESTONON DX/THER 4 FORD FORD AGT PVRT FACET JT CRV/THRC 1 LEVEL RADEX 58630 AMILCAR AMILCAR SPINE 4 DONITA DONITA LUMBOSACR AL MINIMUM 4 VIEWS RADIOLOGI 76328 CARL HENRY C EXAM 4 [facility] CHEST 2 INC INC VIEWS FRONTAL&[place] [address] AMILCAR AMILCAR ABDOMINAL 4 DONITA DONITA REAL TIME W/IMAGE LIMITED ECHO 02621 [place] TABARES TTHRC R-T 4 JR DEBBIE JR DEBBIE 2D W/WOM-MOD E COMPL SPEC&COLR D SPMTRY 96002 [facility] MUR W/VC 4 EXPIRATOR Y TAMIA W/WO MXML VOL VNTJ ANNUAL G0444 GABRIEL [place] AYSHA DEPRESSIO 4 Saroj FIGUEROA MD,PSC SCREENING 15 MINUTES IAADIADOO 53048 [facility] MUR 3 STREPTOCO CCUS GROUP A IAADIADOO 36321 [facility] MUR 3 INFLUENZA LOCM Q9967 UNIVERS UNIVERS [phone] 3 Y Y MG/ML [facility] [place] [address] MIKEY MIKEY ABDOMEN & 3 ADR ADR PELVIS W/[place] [address] [facility] GAMMAGLOB 3 Y Y ULIN IGA [facility] IGD IGG IGM EACH IMMUNOASS 04426 [facility] AY 3 Y Y [facility] QUAL/[place] [address] [facility] THYROID 3 Y Y STIMULATI [facility] NG HORMONE TSH COLLECTIO 29260 [facility] N VENOUS 3 Y Y BLOOD [facility] VENIPUNCT URE RADEX ABD 56312 NICKELS NICKELS COMPL 3 FREDDIE FREDDIE AQT ABD W/S/E/D VIEWS 1 VIEW CH INJECTION J2250 [facility] 3 Y Y MIDAZOLAM [facility] HCL PER 1 MG EGD 44667 [facility] TRANSORAL 3 Y Y BIOPSY [facility] SINGLE/[place] [address] GUERRERO GUERRERO SURG 3 DEBBIE DEBBIE PATHOLOGY GROSS&LEELEE ROSCOPIC EXAM INJECTION J3010 [facility] FENTANYL 3 Y Y CITRATE [facility] 0.1 MG COLLECTIO 51704 [facility] N VENOUS [address] [place] [address] [place] [address] [facility] AMYLASE [address] [place] [address] URNLS DIP [address] [facility] [address] [place] [address] [facility] LET REAGENT AUTO MICROSCOP Y BLOOD 81143 [facility] COUNT [address] [place] [address] AUTO&[place] [address] [facility] LIP[facility] [address] [place] 77082 COMPREHEN 15006 [facility] [place] S[facility] [address] [place] [address] PANEL CULTURE 16580 [facility] [place] BACTERIAL [address] [place] [address] [place] [address] [place] ABDOMINAL 3 [facility] TIME W/IMAGE LIMITED VSTBLR 63554 HERDER HERDER FUNCJ 3 [facility]FT[facility] AFT[facility] NYSTAG FOVL&PERP H STIMJ OSCIL TRK SINUSOIDA 60051 HERDER HERDER L 3 [facility]FT[facility] VERTICAL AXIS ROTATIONA L TESTING CALORIC 71988 HERDER HERDER VESTIBULA 3 AFT[facility] AFTAB R TEST EA IRRIGATIO N W/RECORD RADEX 95255 ESTIVEN MAT ESTIVEN MAT ESOPHAGUS 3 NERVE 39412 BHUM[facility] BAI CONDUCTIO 3 [facility] N STUDIES 5-6 [place] [address] SPINAL 3 [facility] CERVICAL W/O CONTRAST MATRL MRI [address] SPINAL 3 S [facility] LUMBAR W/O CONTRAST MATERIAL MOTOR 85597 BHUM[facility] BAI &/SENS 3 [facility] NRV CNDJ PRECONF ELTRD ARRAY LIMB THERAPEUT 51723 [place] P[place] 1/> 2 [facility] EACH 15 MIN EXERCISES E-STIM G0283 [place] 1/> AREAS 2 [facility] PART TX PLAN E-STIM G0283 [place] 1/> AREAS 2 [facility] PART TX PLAN THERAPEUT 33215 [place] 1/> 2 [facility] EACH 15 MIN EXERCISES CALORIC 73137 BHUMIKA BAI VESTIBULA 2 [facility] R TEST EA IRRIGATIO N W/RECORD SINUSOIDA 40173 BHUM[facility]A BAI L 2 [facility] VERTICAL AXIS ROTATIONA L TESTING SPONTANEO 75778 BHUMIKA BAI US 2 [facility] NYSTAGMUS TEST PHYSICAL 72557 [place] THERAPY 2 [facility] N CYTP 82453 [facility] LABORATOR CERV/VAG 1 AMERIC Y MEAGHAN OF AUTO THIN HOLDINGS NORMA LAYER H PREP MNL SCREEN IADNA 70057 [facility] MEAG[facility]AN GARDNEREL 1 AMERIC AMERIC LA HOLDINGS HOLDING VAGINALIS DIRECT PROBE TQ IADNA 71061 [facility] LABORATOR PAPILLOMA 1 AMERIC Y MEAGHAN OF VIRUS HOLDINGS NORMA HUMAN H AMPLIFIED PROBE TQ IADNA 06711 [facility] LAB MEAGHAN TRICHOMON 1 AMERIC AMERIC HOLDINGS HOLDING VAGINALIS DIRECT PROBE TQ IADNA 29825 [facility]AG[facility]AN JUAN 1 AMERIC AMERIC SPECIES HOLDINGS HOLDING DIRECT PROBE TQ OPTKINETI 98833 PHYSICIAN YOMI GRE C NYSTAG 1 S BIDIR/FOV SERVICES EAL/PERIP H STIM W/REC SPONTANEO 43851 PHYSICIAN YOMI GRE US 1 S NYSTAGMUS SERVICES TEST SINUSOIDA 85915 PHYSICIAN YOMI GRE L 1 S VERTICAL SERVICES AXIS ROTATIONA L TESTING POSITIONA 19426 PHYSICIAN YOMI GRE L 1 S NYSTAGMUS SERVICES TEST CALORIC 72062 PHYSICIAN YOMI GRE VESTIBULA 1 S R TEST EA SERVICES IRRIGATIO N W/RECORD DRUG SCR G0434 [place] [facility] Y[facility] NOT 1 [facility] CARE [facility] RAPHIC; ANY NUMBER PT ENC SPMTRY 51368 [facility] W/VC 1 EXPIRATOR Y TAMIA W/[place] [address] [place] ABDOMINAL 1 [facility] TIME W/[place] [address] [facility] [place] ESTIVEN MAT ABDOMINAL 1 RADIOLOGY REAL TIME W/IMAGE LIMITED MRI 34621 [place] [facility] SPINAL 1 R OPEN [place] CANAL MRI CERVICAL W/O CONTRAST MATRL 3D 56410 [place] [facility] RENDERING 1 R OPEN MALCOL[place] W/INTERP MRI & POSTPROCE SS SUPERVISI ON MRI 53451 [place] EV[facility]IO SPINAL 1 R OPEN [place]COL[place] CANAL MRI LUMBAR W/O CONTRAST MATERIAL DEEP D9220 ALVIN I COPELAND III, SEDATION/ 0 COPELAND III ALVIN I GENERAL PSC N0 3 ANESTHESI A-1ST 30 MINUTES OPH 14845 SHAKIRA WIN, MEDICAL 0 VISION JOSE M XM&EVAL COMPRE NEW PT 1/> VST Encounters Encounter Start End Date Code Location Performer Type Date EMERGENCY 61862 [facility] 7 7 [facility] EMERGENCY T VISIT PHYS HIGH/URGE NT SEVERITY EMERGENCY 32526 [facility] 7 7 [facility] EMERGENCY T VISIT PHYS MODERATE SEVERITY OFFICE 79074 [facility] KARI OUTPATIEN 7 7 PHYSICIAN T VISIT S GROUP 25 MINUTES OFFICE 42349 [facility] PETTEY OUTPATIEN 7 7 PHYSICIAN T NEW 30 S GROUP MINUTES EMERGENCY 75194 [facility] 7 7 [facility]PART[facility] T VISIT LIMITED/[facility] - 7 7 [facility] OUT[facility] INC T EMERGENCY 87036 [facility] ARNOLD 7 7 TESSY DEPARTMEN EMERGENCY T VISIT PHYS MODERATE SEVERITY OFFICE 66168 [facility] FRYMAN OUTPATIEN 6 6 PHYSICIAN T VISIT S GROUP 15 MINUTES EMERGENCY 97659 [facility] CHANDEL 6 6 TESSY DEPARTMEN EMERGENCY T VISIT PHYS MODERATE SEVERITY EMERGENCY 34787 [facility] ARNOLD 6 6 [facility]IS[facility] PHYS HIGH/URGE NT SEVERITY [facility] - 6 6 [facility] OUTPATIEN INC T OFFICE 38597 [facility] KARI OUTPATIEN 6 6 PHYSICIAN LEELEE T VISIT S GROUP 15 MINUTES HOSPITAL [facility] - 6 6 [facility] OUTPATIEN INC T OFFICE 84929 [facility] KARI OUTPATIEN 6 6 PHYSICIAN LEELEE T VISIT S GROUP 25 MINUTES HOSPITAL CAR[facility] - 6 6 [facility] OUTPATIEN INC T OFFICE 80358 [facility] OUTPATIEN 6 6 HEALTH H[facility] T VISIT MEDICAL 10 GROUP MINUTES EMERGENCY 21034 [facility] SWINEY 6 6 TESSY PAT DEPARTMEN EMERGENCY T VISIT PHYSI HIGH/URGE NT SEVERITY EMERGENCY 35590 [facility] CANDELARIA DEPT 6 6 TESSY LIA VISIT EMERGENCY HIGH PHYSI SEVERITY& THREAT FUNCJ EMERGENCY 73454 [facility] GAYHEART 6 6 TESSY AYSHA DEPARTMEN EMERGENCY T VISIT SERV HIGH/URGE NT SEVERITY OFFICE 35485 [facility] OUT[facility]EN 6 6 POINT AYSHA T VISIT FAMILY 15 CARE, IN MINUTES EMERGENCY 78459 [facility] RICHARD 6 6 TESSY N RIDGE DEPARTMEN EMERGENCY T VISIT PHYSI MODERATE SEVERITY EMERGENCY 19070 [facility] DE[facility] 6 6 TESSY PHI VISIT EMERGENCY HIGH PHYSI SEVERITY& THREAT FUNCJ EMERGENCY 10817 [facility] 6 6 TESSY LIA DEPARTMEN EMERGENCY T VISIT PHYSI HIGH/URGE NT SEVERITY OFFICE 96303 [facility] OUTPATIEN 5 5 PHYSICIAN LEELEE T VISIT S GROUP 15 MINUTES EMERGENCY 64106 [facility] 5 5 TESSY PAT DEPARTMEN EMERGENCY T VISIT PHYS MODERATE SEVERITY EMERGENCY 98537 NEISHA WILL 5 5 PHYSICIAN RAMÓN DEPARTMEN S, PLLC T VISIT MODERATE SEVERITY [facility] [place] - 5 5 [facility] - 5 5 [facility] EMERGENCY 88857 [facility] 4 4 TESSY ABDIRASHID DEPARTMEN EMERGENCY T VISIT PHYS HIGH/URGE NT SEVERITY [facility] [place] - 4 4 [facility] UNIVERSIT - 4 4 [facility] CAR[facility] - 4 4 [facility] 4 [facility] OFF[facility] 51254 ADIEL ANT ADIEL ANT OUTPATIEN 4 4 T VISIT 25 MINUTES EMERGENCY 31816 ALEX DUCKWORTH 4 4 DEPARTMEN T VISIT HIGH/URGE NT SEVERITY OFFICE 19525 [facility] OUT[facility] 4 4 T VISIT 15 MINUTES OFFICE 43553 GABRIEL [place] AYSHA OUTPATIEN 4 4 Antwan FIGUEROA MD,PSC MINUTES OFFICE 62065 [facility] 4 4 T VISIT 15 MINUTES OFFICE 39852 [facility] OUTPATI[facility] 3 3 T VISIT 25 MINUTES HOSPITAL [facility] - 3 3 Y [facility] T OFFICE 73023 ADIEL ANT ADIEL ANT CONSULTAT 3 3 ION NEW/ESTAB PATIENT 60 MIN HOSPITAL UNIVERSIT - 3 3 Y [facility] T EMERGENCY 93628 ECKERLINE ECKERLINE 3 3 JR GABRIELLE JR G[facility]RIELLE [facility] T VISIT MODERATE SEVERITY EMERGENCY 84566 UNIVERSIT 3 3 Y [facility] T VISIT HIGH/URGE NT SEVERITY HOSPITAL [facility] - 3 3 Y [facility] T OFFICE 45856 YOMI GRE YOMI GRE [facility] 3 3 T VISIT 25 MINUTES EMERGENCY 71106 [facility] TODD 3 3 [facility] T VISIT MODERATE SEVERITY [facility] - 3 3 Y [facility] T OFFICE 37733 [facility] OUTPATIEN 3 3 T VISIT 15 MINUTES OFFICE 06337 [facility]AI OUTPATIEN 3 3 SONNY SONNY T VISIT 15 MINUTES [facility] [place] - 3 3 [facility] T OFFICE 02313 [facility] OUTPATIEN 3 3 T VISIT 15 MINUTES OFFICE 44968 [facility] 3 AFTAB AFTAB T VISIT 15 MINUTES [facility] [place] - 3 3 [facility] T OFFICE 24888 [facility] OUTPATIEN 3 3 T VISIT 15 MINUTES OFFICE 33511 [facility] OUTPATIEN 3 3 SONNY SONNY T VISIT 25 MINUTES OFFICE 48420 [facility] OUTPATIEN 3 3 SONNY SONNY T VISIT 25 MINUTES EMERGENCY 51997 KEELY RIGGS GONZALO 3 3 DEPARTMEN T VISIT MODERATE SEVERITY OFFICE 37286 YOMI GRE YOMI GRE OUTPATIEN 2 2 T VISIT 25 MINUTES [facility] [place] - 2 2 [facility] T OFFICE 35323 [facility] MUR OUTPATIEN 2 2 T VISIT 25 MINUTES OFFICE 06067 YOMI GRE YMOI GRE OUTPATIEN 2 2 T VISIT 25 MINUTES EMERGENCY 88537 NIKA MAHER 2 2 PHI PHI DEPARTMEN T VISIT HIGH/URGE NT SEVERITY OFFICE 79158 [facility] OUTPATIEN 2 2 MAR MAR T VISIT 15 MINUTES EMERGENCY 59970 CHIP BARBOSAMAN 2 2 ALEX ALEX DEPARTMEN T VISIT MODERATE SEVERITY OFFICE 89078 [facility] OUT[facility] 1 1 MAR MAR T VISIT 15 MINUTES OFFICE 57572 CATHERINE ALEXANDER OUTPATIEN 1 1 BECKI BECKI T VISIT 15 MINUTES OFFICE 20120 PHYSICIAN YOMI GRE OUTPATIEN 1 1 S T VISIT SERVICES 15 MINUTES OFFICE 15902 PHYSICIAN YOMI GRE OUTPATIEN 1 1 S T VISIT SERVICES 15 MINUTES OFFICE 15147 PHYSICIAN YOMI GRE OUTPATIEN 1 1 S T VISIT SERVICES 15 MINUTES OFFICE 83430 PHYSICIAN YOMI GRE OUTPATIEN 1 1 S T VISIT SERVICES 15 MINUTES OFFICE 04756 PHYSICIAN YOMI GRE OUTPATIEN 1 1 S T NEW 30 SERVICES MINUTES OFFICE 72692 [facility] OUTPATIEN 1 1 [facility] T VISIT E CENTER 15 MINUTES OFFICE 72090 [place] FATIM[place] PHI CONSULTAT 1 1 MEDICAL ION SERV NEW/ESTAB FOUNDATIO PATIENT 40 MIN OFFICE 23985 [facility] 1 1 T NEW 30 MINUTES [facility] 1 [facility] T OFFICE 04251 ALVIN COPELAND III, OUTPATIEN 0 0 MIN JOHNSON 20 PSC N0 3 MINUTES
--- OUTSIDE RECORDS SUMMARY | 2016-12-25 18:54 | External Medical Summary Rpt ---
Author Author , JERRICA Organization JERRICA Address Unknown Phone [email or web address] Providers Care Shift Nurse Manager Name Role Phone AIDA DONNIE, AIDA Unavailable Unavailable DONNIE LU ALFONSO, LU Unavailable Unavailable ALFONSO KRYSTINA TEJADAOLD Unavailable Unavailable MALLORY SCHULTZ, ARNOLD Unavailable Unavailable MARION FIGUEROA, Unavailable Unavailable ,PSC, GABRIEL FIGUEROA MD,PSC [facility] Unavailable Unavailable MEDICAL GROUP, [facility] TODD SONNY, TODD Unavailable Unavailable SONNY TODD SONNY, TODD Unavailable Unavailable SONNY ADIEL ANT, ADIEL ANT Unavailable Unavailable ADIEL ANT, ADIEL ANT Unavailable Unavailable [facility] Unavailable Unavailable H[facility]PITAL, [facility], [facility] Unavailable Unavailable AG AYSHA, AG Unavailable [...] [facility] Unavailable Unavailable [facility] Unavailable Unavailable [place], [facility] [place] ECKERLINE JR GABRIELLE, [...] AFTAB HERDER AFTAB, HERDER Unavailable Unavailable AFTAB [facility], Unavailable Unavailable [facility] Unavailable [facility]available [facility] Unavailable Unavailable [place], ABRAZO [facility] RIGGS GONZALO, RIGGS GONZALO Unavailable Unavailable CATHERINE BECKI, CATHERINE Unavailable Unavailable BECKI CATHERINE BECKI, CATHERINE Unavailable Unavailable BECKI [facility] Unavailable Unavailable [facility], [facility] Unavailable Unavailable [facility], [facility] Unavailable Unavailable [facility] Unavailable Unavailable [facility], [facility] NICOLETTE RAMÓN, NICOLETTE Unavailable Unavailable RAMÓN MCKEMIE JR DEBBIE, Unavailable Unavailable MCKEMIE JR DEBBIE MCKEMIE JR DEBBIE, Unavailable Unavailable MCKEMIE JR DEBBIE YOMI GRE, YOMI GRE Unavailable Unavailable YOMI GRE, YOMI GRE Unavailable Unavailable W[place] AYSHA, WASHINGTON AYSHA Unavailable Unavailable NICKELS FREDDIE, NICKELS Unavailable Unavailable FREDDIE NICKELS FREDDIE, NICKELS Unavailable Unavailable FREDDIE GUERRERO DEBBIE, GUERRERO Unavailable Unavailable DEBBIE [facility] Unavailable Unavailable [facility], [facility] PETTEY, PETTEY Unavailable Unavailable [facility], Unavailable Unavailable [facility] PICKEN JR, Unavailable Unavailable PICKEN JR OZ HEN, OZ Unavailable Unavailable HEN [facility], Unavailable Unavailable [facility], Unavailable Unavailable [facility] NARCISA SABILLON, Unavailable Unavailable NARCISA SABILLON [facility] Unavailable Unavailable [id number] [address] [id number], [facility] [id number] [address] [id number] [place], [place] Unavailable Unavailable SONNY SCALF, SCALF Unavailable [...] SHOP FATIMAH PHI, FATIMAH PHI Unavailable Unavailable [facility], Unavailable Unavailable [facility] MAHER PHI, MAHER Unavailable Unavailable PHI MAHER [...] R062 WHEEZING 07-06-2016 [facility] PHYS [id number] UNSPECIFIED 06-28-2016 [facility] INJURY PHYSICIANS LEFT ANKLE GROUP SUBSEQUENT ENCNTR [id number] SPRAIN 06-14-2016 [facility] OTHER PHYSICIANS LIGAMENT LT GROUP ANKLE INITIAL ENCOUNTER G8921 CHRONIC 06-01-2016 [facility] DUE TO [facility] TRAUMA INC [id number] PAIN IN 06-01-2016 [facility] LEFT FOOT [facility] INC Z720 TOBACCO USE 06-01-2016 [facility] INC [id number] PAIN IN 05-30-2016 [facility] [place] LEFT ANKLE RADIOLOGY [id number] SPRAIN UNS 05-30-2016 [facility] LIGAMENT N EMERGENCY LEFT ANKLE PHYS INITIAL ENCOUNTER Y93F2 ACTIVITY 05-30-2016 [facility] CAREGIVING N EMERGENCY LIFTING PHYS A599 TRICHOMONIA 05-18-2016 [facility] UNSPECIFIED B9689 OTH SPEC 05-18-2016 [facility] BACTERIAL [facility] AGNT CAUSE DZ CLASSIFIED ELSW J0100 ACUTE 05-18-2016 [facility] MAXILLARY PHYSICIANS SINUSITIS GROUP UNSPECIFIED N898 OTHER 05-18-2016 [facility] SPECIFIED LLC NONINFLAMMA TORY DISORDERS VAGINA F94198 ENCOUNTER 05-18-2016 [facility] 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 GENERAL RTN W/O ABNORMAL FIND Z139 ENCOUNTER 05-18-2016 [facility] FOR PHYSICIANS SCREENING GROUP UNSPECIFIED [id number] SPRAIN 04-10-2016 [facility] TARSOMETATA N EMERGENCY RSAL PHYS LIGAMENT LT FOOT INIT ENC [id number] SLIP TRIP & 04-10-2016 [facility] STUMBLING N EMERGENCY W/O FALLING PHYS UNS INIT ENC R1011 RIGHT UPPER 04-07-2016 [place] [facility] E119 TYPE 2 03-29-2016 [facility] DIABETES PHYSICIANS MELLITUS GROUP WITHOUT COMPLICATIO NS E663 OVERWEIGHT 03-29-2016 [facility] PHYSICIANS GROUP E785 HYPERLIPIDE 03-29-2016 [facility] KENNY PHYSICIANS UNSPECIFIED GROUP G629 POLYNEUROPA 03-29-2016 [facility] THY PHYSICIANS UNSPECIFIED GROUP M549 DORSALGIA 03-29-2016 [facility] UNSPECIFIED PHYSICIANS GROUP Z1231 ENCOUNTER 03-29-2016 [facility] SCREENING PHYSICIANS MAMMO MALIG GROUP NEOPLASM BREAST K219 GASTRO-ESOP 02-09-2016 [facility] H REFLUX PHYSICIANS DISEASE GROUP WITHOUT ESOPHAGITIS B850 PEDICULOSIS 12-30-2015 [facility] DUE TO HEALTH PEDICULUS MEDICAL HUMANUS GROUP CAPITIS J40 BRONCHITIS 12-04-2015 [facility] NOT N EMERGENCY SPECIFIED PHYSI ACUTE OR CHRONIC R0789 OTHER CHEST 12-04-2015 [facility] [place] PAIN RADIOLOGY R091 PLEURISY 12-04-2015 [facility] EMERGENCY PHYSI M542 CERVICALGIA 11-18-2015 [facility] [place] RADIOLOGY [id number] STRAIN 11-18-2015 [facility] MUSCLE FASC N EMERGENCY & TENDON SERV NECK LEVL INIT ENC [id number] EXPOSURE TO 11-18-2015 [facility] OTHER N EMERGENCY SPECIFIED SERV FACTORS INITIAL ENC M71496 ELEVATED 11-15-2015 [facility] CELL COUNT UNSPECIFIED G2581 RESTLESS 11-15-2015 [facility] SYNDROME R7309 OTHER 11-15-2015 [facility] GLUCOSE R0781 PLEURODYNIA 10-13-2015 [facility] EMERGENCY PHYSI R1030 LOWER 10-03-2015 [facility] [place] ABDOMINAL RADIOLOGY PAIN UNSPECIFIED M545 LOW BACK 08-12-2015 [facility] PAIN N EMERGENCY PHYSI 16058 METHICILLIN 02-02-2015 [facility] RESISTANT PHYSICIANS STAPHYLOCOC GROUP CUS AUREUS 06118 OTHER 02-02-2015 [facility] CHRONIC PHYSICIANS PAIN GROUP 490 BRONCHITIS 02-02-2015 [facility] NOT PHYSICIANS SPECIFIED GROUP ACUTE OR CHRONIC 7231 CERVICALGIA 02-02-2015 [facility] PHYSICIANS GROUP 460 ACUTE 01-26-2015 [facility] NASOPHARYNG N EMERGENCY ITIS PHYS 6250 DYSPAREUNIA 01-26-2015 [facility] N EMERGENCY PHYS 6273 POSTMENOPAU 01-26-2015 [facility] N EMERGENCY ATROPHIC PHYS VAGINITIS 7841 THROAT PAIN 01-26-2015 [facility] 462 ACUTE 01-15-2015 [facility] PHARYNGITIS [facility]ICIANS, [facility] 7242 LUMBAGO 06-22-2014 [facility] V571 OTHER 06-22-2014 [facility] 12012 CHRONIC 05-06-2014 [facility] OBSTRUCTIVE N EMERGENCY ASTHMA PHYS UNSPECIFIED 57444 WHEEZING 05-06-2014 [facility] N EMERGENCY PHYS 38205 OTHER 03-05-2014 [facility] SPECIFIED ARTHROPATHY PELVIC REGION&THIG H 7291 UNSPECIFIED 03-05-2014 [facility] MYALGIA AND MYOSITIS 7905 OTHER 12-23-2013 [facility] SERUM ENZYME LEVELS 2113 BENIGN 11-26-2013 [place] NEOPLASM [facility] COLON 4550 INTERNAL 11-26-2013 [place] HEMORRHOIDS [facility] WITHOUT MENTION COMP 88569 UNSPECIFIED 11-26-2013 [facility] CONSTIPATIO N 5781 BLOOD IN 11-26-2013 [facility] 28912 ABDOMINAL 11-26-2013 [facility] GENERALIZED 83832 NAUSEA 10-09-2013 [facility] ALONE DONITA 04626 ABDOMINAL 10-09-2013 [facility] PAIN, DONITA UNSPECIFIED SITE 35538 ABDOMINAL 10-09-2013 [facility] RIGHT [facility] UPPER INC QUADRANT 58364 PAIN IN 09-30-2013 [facility] JOINT, DONITA LOWER LEG E8889 UNSPECIFIED 09-30-2013 [facility] FALL DONITA V642 SURG/OTH 09-25-2013 [facility] PROC NOT [facility] CARRIED OUT INC BECAUSE PTS DECN 7210 CERVICAL 09-10-[address] SPONDYLOSIS SURGERY WITHOUT CENTER MYELOPATHY 7213 LUMBOSACRAL 09-10-2013 [facility] DONITA SPONDYLOSIS WITHOUT MYELOPATHY 19478 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 [facility] LUMBAR/LUMB DONITA OSACRAL INTERVERTEB RAL DISC 95590 SPINAL STEN 09-10-2013 [facility] LUMB REG DONITA W/O NEUROGENIC CLAUDICATIO N 486 PNEUMONIA, 09-02-2013 [facility] ORGANISM [facility] UNSPECIFIED INC 514 PULMONARY 09-02-2013 [facility] CONGESTION DONITA AND HYPOSTASIS 7862 COUGH 09-02-2013 [facility] DONITA 5758 OTHER 08-20-2013 [facility] SPECIFIED DONITA DISORDER OF GALLBLADDER 43999 FEVER 08-20-2013 R[facility]SHA[facility] BREWER UNSPECIFIED DEBBIE 30261 CHEST PAIN 08-20-2013 [facility]SHA[facility] BREWER UNSPECIFIED DEBBIE 7873 FLATULENCE 08-01-2013 [facility] ANT ERUCTATION AND GAS PAIN 4658 ACUTE URIS 07-08-2013 [facility] DONITA OF OTHER MULTIPLE SITES 2893 LYMPHADENIT 07-03-2013 [facility] IS UNSPECIFIED EXCEPT MESENTERIC 4660 ACUTE 07-03-2013 [facility] BRONCHITIS 06423 ASTHMA, 07-03-2013 [facility] UNSPECIFIED , UNSPECIFIED STATUS 3544 CAUSALGIA 06-17-2013 [facility] UPPER HENRY LIMB ,PSC 7224 DEGENERATIO 06-17-2013 [facility] N OF HENRY CERVICAL ,PSC INTERVERTEB RAL DISC V790 SCREENING 06-17-2013 [facility] FOR HENRY DEPRESSION ,PSC 4871 INFLUENZA 04-22-2013 [facility] WITH OTHER RESPIRATORY MANIFESTATI ONS 5368 DYSPEPSIA&O 04-04-2013 [facility] DISORDERS FUNCTION STOMACH 51220 OTHER 04-02-2013 NICKELS FREDDIE SYMPTOMS INVOLVING DIGESTIVE SYSTEM OTHER V1279 PERSONAL 04-02-2013 [facility] DISEASES DIGESTIVE DISEASE V4589 OTHER 04-02-2013 ECKERLINE POSTSURGICA JR GABRIELLE L STATUS OTHER 82320 INTERVERT 11-14-2012 Y[facility] GRE LUMB DISC D/O W/MYELOPATH Y LUMB REGION 7812 ABNORMALITY 11-14-2012 Y[facility] GRE OF GAIT V7109 OBSERVATION 11-14-2012 Y[facility] GRE OF OTHER SUSPECTED MENTAL CONDITION 6826 CELLULITIS 11-08-2012 TODD SONNY AND ABSCESS OF LEG EXCEPT FOOT 35726 UNSPECIFIED 11-04-2012 [facility] ESOPHAGITIS 76451 OTHER SPEC 11-04-2012 GUERRERO DEBBIE GASTRITIS WITHOUT MENTION HEMORRHAGE 7871 HEARTBURN 11-04-2012 LU ALFONSO 45950 REFLUX 10-31-2012 [facility] ESOPHAGITIS 3384 CHRONIC 10-15-2012 BHUMIKA DENNIS PAIN SYNDROME 7234 BRACHIAL 10-15-2012 [facility] NEURITIS OR RADICULITIS NOS 7238 OTHER 10-15-2012 [facility] SYNDROMES AFFECTING CERVICAL REGION 99341 ABDOMINAL 10-09-2012 [facility] NIRMAL PAIN, EPIGASTRIC 7919 OTHER 10-09-2012 [facility] EXAMINATION OF URINE 7804 DIZZINESS 09-17-2012 BALDEMAR UGALDE AND GIDDINESS E9352 OTH 09-17-2012 HERDER AFTAB OPIATES&REL [place] [address] ESOPHAGEAL 09-09-2012 [facility] MAT REFLUX 4549 ASYMPTOMATI 09-03-2012 [facility] C VARICOSE VEINS 7295 PAIN IN 08-20-2012 [facility] SOFT TISSUES OF LIMB 46467 UNSPECIFIED 06-11-2012 [facility] ARTHROPATHY OTHER SPECIFIED SITES 7220 DISPLCMT 06-11-2012 [facility]ANS CERV SERVICES INTERVERT DISC WITHOUT MYELOPATHY 44152 INTERVERT 02-21-2012 [facility] W/MYELOPATH Y CERV REGION 7244 THORACIC/MARLA 02-21-2012 [facility]RA [facility]OSPITAL DICULITIS UNSPEC 8470 NECK SPRAIN 02-21-2012 [facility] V5789 OTHER 02-21-2012 [facility] ION PROCEDURE OTHER 4619 ACUTE 02-06-2012 [facility] SINUSITIS, UNSPECIFIED 5990 URINARY 07-03-2011 [facility] PHI TRACT INFECTION SITE NOT SPECIFIED 7840 HEADACHE 07-03-2011 NIK[facility] PHI 25031 LUMP OR 06-26-2011 ED[facility] MAR MASS IN BREAST 4659 ACUTE URIS 05-29-2011 [place] OF ALEX UNSPECIFIED SITE 3531 LUMBOSACRAL 04-18-2011 YOMI GRE PLEXUS LESIONS 6235 LEUKORRHEA 04-10-2011 LAB [facility] NOT AMERIC SPECIFIED HOLDINGS INFECTIVE V7231 ROUTINE 04-10-2011 ED[facility] MAR GYNECOLOGIC AL EXAMINATION V7381 SPECIAL 04-10-2011 [facility] SCREENING AMERIC EXAMINATION HOLDINGS HUMAN PAPILVIRUS V762 SCREENING 04-10-2011 [facility] MAR FOR MALIGNANT NEOPLASM OF THE CERVIX 74529 OSTEOARTHRO 03-22-2011 CATHERINE BECKI S UNSPEC WHETHER GEN/LOC UNSPEC SITE 16250 PAIN IN 03-22-2011 CATHERINE BECKI JOINT PELVIC REGION AND THIGH 8472 LUMBAR 03-14-2011 PHYSICIANS SPRAIN AND SERVICES KAYLEIGH V5883 ENCOUNTER 02-10-2011 PHYSICIANS FOR SERVICES THERAPEUTIC DRUG MONITORING 19634 SPONDYLOSIS 01-20-2011 PHYSICIANS WITH SERVICES MYELOPATHY LUMBAR REGION 7211 CERVICAL 12-30-2010 PHYSICIANS SPONDYLOSIS SERVICES WITH MYELOPATHY 7230 SPINAL 12-30-2010 PHYSICIANS STENOSIS IN SERVICES CERVICAL REGION V5869 LONG-TERM 12-27-2010 P[facility] (CURRENT) PRIMARY USE OF CARE LLC OTHER MEDICATIONS 7245 UNSPECIFIED 12-01-2010 [facility] 496 CHRONIC 08-11-2010 [facility] OBSTRUCTION NEC 5718 OTHER 08-01-2010 [facility] [place] CHRONIC RADIOLOGY NONALCOHOLI C LIVER DISEASE 64217 UNSPECIFIED 08-01-2010 [facility] KIDNEY DISEASE 06712 ABDOMINAL 08-01-2010 [facility] PAIN, LEFT [facility] HOSPITAL QUADRANT 77597 DISPLCMT 07-06-2010 [facility] LUMBAR OPEN MRI INTERVERT DISC W/O MYELOPATHY 04889 SPASM OF 07-06-2010 [facility] MUSCLE OPEN MRI 27209 SCOLIOSIS , 07-06-2010 [facility] IDIOPATHIC OPEN MRI 5210 DENTAL 12-21-2009 ALVIN I COPELAND CARIES III PSC N0 3 3670 HYPERMETROP 11-23-2009 SHAKIRA IA VISION Medications Na ND Rx Da Fi Fi [...] 37 3- 4- 00 01 UC ve PA 26 20 20 01 [place] N 71 [...] 37 3- 7- 00 01 UC ve PA 26 20 20 01 [place] N 71 [...] 05 06 14 7 00 KE Ac FL 86 -2 -2 .0 00 NT ti [...] 5 19 CV CE S TA PH PA AR NO MA PH CY EN LL [...] 37 4- 5- 00 01 UC ve PA 26 20 20 01 [place] N 71 [...] MA CY #3 01 6 TI 00 03 [...] 37 6- 7- 00 00 UC ve PA 26 20 20 96 [place] N 71 [...] MA CY #3 01 6 FL 00 02 03 15 5 00 KE Ac ED 14 -1 -2 .0 00 NT ti NI 39 6- 4- 00 01 UC ve SO 73 20 20 00 [place] NE 80 17 17 56 5 05 CV 20 S PH MG AR MA TA CY BL ET LL C, DB A CV S PH AR MA CY #3 01 6 FL 60 02 03 24 6 00 KE [...] MA CY #3 01 6 FL 00 02 03 10 5 00 KE [...] 37 3- 0- 00 00 UC ve PA 26 20 20 96 [place] N 71 [...] 37 7- 0- 00 00 UC ve PA 26 20 20 96 [place] N 71 [...] AR MA CY #3 01 6 FL 59 12 01 20 7 00 KE [...] 37 8- 9- 00 00 UC ve PA 26 20 20 96 [place] N 71 16 17 36 HC 0 47 CV L S ER PH AR 50 MA 0 CY MG LL TA C, BL ET DB A CV S PH AR MA CY #3 01 6 FL 00 07 10 3 30 30 RI [...] 10 10 0 30 30 WA 96 PA Ac TA 16 -0 -0 .0 LG 01 CK ti LO 20 7- 7- 00 RE 91 ve FL 05 20 20 EN GR AM 41 11 11 S EG 0 #5 OR HB 57 Y R 4 E 40 # 55 MG 74 TA BL ET AL 00 10 10 0 90 30 WA 96 PA Ac FL 22 -0 -0 .0 LG 01 CK ti AZ 82 7- 7- 00 RE 93 ve OL 03 20 20 EN GR AM 15 11 11 S EG 1 0 #5 OR 57 Y MG 4 E # TA 55 BL 74 ET FL 00 08 10 2 60 10 RI [...] 09 10 0 90 30 [place] [address] 59 -2 -0 .0 LG 21 CK ti OC 13 3- 4- 00 RE 55 ve OD 20 20 20 EN GR ON 20 11 11 S EG -A 1 #9 OR CE 71 Y TA 2 E PA # NO 97 PH 12 EN 5- 32 5 BA 00 08 10 2 90 30 WA 27 RICH Ac CL 17 -0 -0 .0 LG 30 HN ti OF 24 9- 2- 00 RE 23 SO ve EN 09 20 20 EN N 76 11 11 S KE 20 0 #9 71 N MG 2 B # TA 97 BL 12 ET FL 00 07 09 3 30 30 RI [...] 9- 9- 00 RE 36 EY ve FL 05 20 20 EN AM 41 11 11 S BE 0 #9 NJ HB 71 AM R 2 IN 40 # B 97 MG 12 TA BL ET AL 00 09 09 0 [address] Ac FL 22 -0 -0 .0 LG 81 OR [...] B # TA 97 BL 12 ET FL 00 08 09 2 60 10 RI 20 SH Ac OM 60 -1 -0 .0 TE 68 OC ti ET 35 1- 3- 00 88 KE ve SALAZAR 43 20 20 AI Y ZI 82 11 11 D MA NE 1 PH RG AR AR 25 MA ET CY L MG 07 TA 85 BL 6 ET # 07 85 FL 00 07 08 3 30 30 RI [...] 07 ET 85 6 # 07 85 FL 00 08 08 2 60 10 RI [...] 0 60 30 WA 27 RICH Ac FL 22 -0 -1 .0 LG 30 HN [...] 07 90 30 RI 20 DA Ac FL 60 -1 -1 .0 TE 31 ti [...] 71 M 2 S # 97 12 FL 00 07 07 3 30 30 RI [...] 11 RT 1 RI CH AR D FL 00 06 05 5 30 30 WI [...] IN AR C D TA BL ET FL 00 06 04 5 30 30 WI [...] 0 90 30 WI 36 FI Ac FL 76 -1 -1 .0 LS 53 NC [...] LS 53 NC ti OD 34 1- 5 00 ON 63 H ve ON 99 20 20 0 CH E [address] AR HC 1 UG LE L S 15 IN C MG TA BL ET FL 00 06 02 5 30 30 WI [...] 0 90 30 WI 36 FI Ac FL 76 -1 -1 .0 LS 23 NC ti AZ 23 6- 6- 00 ON 75 H ve OL 72 20 20 CH AM [address] AR 1 4 UG LE S MG IN C TA BL ET ME 29 02 02 0 30 30 WI 36 FI Ac LO 30 -1 -1 .0 LS 23 NC ti XI 00 6 6 00 ON 76 H ve CA 12 20 20 CH M [address] AR 15 0 UG LE S MG IN C TA BL ET ME 00 02 02 0 60 30 WI 36 FI Ac TH 60 -1 -1 .0 LS 23 NC ti OC 34 6- 6- 00 ON 77 H ve AR 48 20 20 CH BA [address] AR MO 8 UG LE L S 50 IN 0 C MG TA BL ET ME 29 01 01 0 30 30 WI 35 FI Ac LO 30 -1 -1 .0 LS 91 NC ti XI 00 9 9 00 ON 59 H ve CA 12 20 20 CH M [address] AR 15 0 UG LE S MG IN C TA BL ET 52 01 01 0 15 30 WI 35 FI Ac 15 -1 -1 0. LS 91 NC ti 20 9 9- 00 ON 60 H ve 21 20 20 0 CH [address] AR 2 UG LE S IN C AL 59 01 01 0 90 30 WI 35 FI Ac FL 76 -1 -1 .0 LS 91 NC ti AZ 23 9 9- 00 ON 61 H ve OL [...] 0 90 30 EA 19 FI Ac FL 78 -2 -[address] 73 NC [...] BL CY ET NT HI AN A FL 00 09 10 3 30 30 EA [...] 0 90 30 EA 19 FI Ac FL 78 -3 -[address] 35 NC [...] CY OF CY NT HI AN A FL 00 09 09 3 30 30 EA [...] 0 90 30 EA 18 FI Ac FL 78 -0 -[address] 97 NC [...] 0 90 30 WI 34 FI Ac FL 76 -0 -0 .0 LS 17 NC [...] 50 C 0 MG TA BL ET FL 00 03 07 3 30 30 WI [...] H MG C M TA BL ET FL 00 03 06 3 30 30 WI 32 BR Ac EM 04 -1 -0 .0 LS 86 OD ti AR 61 7- 2- 00 ON 81 SK ve IN 10 20 20 Y [address] ZAMORA 0. 1 UG NN 9 ET MG IN H C M TA BL ET Procedures Procedure DOS Code Location Performer Comment RADIOLOGI 07453 [facility] [place] SCALF C EXAM 7 RADIOLOGY CHEST 2 VIEWS FRONTAL&L ATERAL RADEX 48147 [facility] [place] MIREILLE ANKLE 7 RADIOLOGY COMPLETE MINIMUM 3 VIEWS IADNA 23106 [facility] CHLAMYDIA 6 LLC ER JR TRACHOMAT IS AMPLIFIED PROBE TQ IADNA 40941 [facility] TRICHOMON 6 LLC ER JR VAGINALIS AMPLIFIED PROBE TECH IADNA 70118 [facility] JUAN 6 LLC ER JR SPECIES AMPLIFIED PROBE TQ IADNA 07870 [facility], [facility] GARDNEREL 6 LLC ER JR LA VAGINALIS AMPLIFIED PROBE TQ CYTP C/V 84006 [facility] AUTO THIN 6 LLC ER JR LYR PREPJ SCR MNL RESCR PHYS IADNA 52445 [facility] HERPES 6 LLC ER JR SOMPLX VIRUS AMPLIFIED PROBE TQ IADNA 12214 [facility], [facility] NEISSERIA 6 LLC ER JR GONORRHOE AE AMPLIFIED PROBE TQ RADEX 95539 [facility] [place] SCALF NIRMAL FOOT 6 RADIOLOGY COMPLETE MINIMUM 3 VIEWS RADEX 88354 [facility] [place] SCALF NIRMAL ANKLE 6 RADIOLOGY COMPLETE MINIMUM 3 [place] [address] [facility] ABDOMINAL 6 [facility]OS[facility] REAL INC INC TIME W/IMAGE LIMITED BLOOD 31276 [facility] COUNT 6 [facility] COMPLETE INC INC AUTO&AUTO DIFRNTL WBC HEPATITIS 59418 [facility] Alcantar 6 [facility] [place] [address] [facility] H[facility]RY THYROID 6 MEM HOS[facility] MEM HOS[facility] STIMULATI INC INC NG HORMONE TSH HEPATITIS 44771 [facility] Tatum 6 [facility] HOS[facility]OS[facility] ANTIBODY INC INC HAAB HEPATITIS 28908 [facility] [place] CORE 6 MEM HOSP MEM HOS[facility] ANTIBODY INC INC HBCAB TOTAL HEPATITIS 33224 [facility] [place] SURF 6 [facility] [place] [address] [facility] HEPATITIS 6 [facility]OS[facility] B INC INC SURFACE ANTIGEN COMPREHEN 66070 [facility] SIVE 6 [facility] [place] [address] [facility] THYROXINE 6 MEM HOS[facility]OS[facility] TOTAL INC INC LIPID 77003 [facility] PANEL 6 [facility]OS[facility] INC INC COLLECTIO 01429 [facility] N VENOUS 6 MEM HOS[facility]OS[facility] BLOOD INC INC VENIPUNCT URE HEMOGLOBI 79907 [facility] HENRY N 6 MEM HOSP MEM HOSP GLYCOSYLA INC INC ALEAH A1C ALBUMIN 52379 [facility] URINE 6 [facility]OS[facility] MICROALBU INC INC MIN QUANTIATI VE CT THORAX 75214 [facility] [place] BROWN 6 RADIOLOGY RAY W/CONTRAS T MATERIAL RADIOLOGI [address] [facility] [place] [address] EXAM 6 RADIOLOGY MOIRA CHEST 2 VIEWS FRONTAL&[place] [address] [facility] [place] PENA JAM CERVICAL 6 RADIOLOGY SPINE W/O CONTRAST MATERIAL BLOOD 90779 [facility] SMEAR 6 DIAGNOSTI DIAGNOSTI PERIPHERA CS CS L INTERP PHYS W/WRIT REPORT BLOOD 83209 [facility] COUNT 6 DIAGNOSTI DIAGNOSTI COMPLETE CS CS AUTO&AUTO DIFRNTL WBC RADIOLOGI 57284 [facility] [place] AIDA C EXAM 6 RADIOLOGY DONNIE CHEST 2 VIEWS FRONTAL&[place] [address] [facility] [place] SHAUN ABDOMEN & 6 RADIOLOGY LD IV ALL PELVIS W/O CONTRAST MATERIAL THERAPEUT 49404 KASI VILLASEÑOR IC PX 1/> 5 [facility] EACH 15 MIN EXERCISES PHYSICAL 34372 [place] THERAPY 5 [facility] N ELECTRICA A4595 [employer] EMPI INC L 4 STIMULATO R SUPPLIES 2 LEAD PER MONTH ELECTRICA A4595 E[facility] INC EMPI INC L 4 STIMULATO R SUPPLIES 2 LEAD PER MONTH ELECTRICA A4595 EMPI INC EMPI INC L 4 STIMULATO R SUPPLIES 2 LEAD PER MONTH HEPATITIS 35635 [facility] A 4 [facility] HAAB HEPATITIS 25883 [facility] CORE 4 [facility] HBCAB TOTAL HEPATITIS 89666 [facility] SURF 4 [facility] HBSAB BLOOD 05790 [facility] COUNT 4 [facility] AUTOMATED COLLECTIO 26406 [facility] N VENOUS 4 [facility] VENIPUNCT URE HEPATIC 55363 [facility] FUN[facility] 4 [facility] ACUTE 78759 [facility] HEPATITIS 4 [facility] ELECTRICA A4595 EMPI INC EMPI INC L 4 STIMULATO R SUPPLIES 2 LEAD PER MONTH COLONOSCO 83084 [facility] 4 Y Y W/[facility] [place]ING[place] [address] [facility] 4 Y Y PATHOLOGY [facility] GROSS&LEELEE ROSCOPIC EXAM ANES 69106 SHMUEL MI LOWER 4 SONNY SONNY INTESTINE ENDOSCOPY DISTAL DUODENUM INFUSION J7030 [facility] 4 Y Y SALINE [facility] SOLUTION 1000 CC ELECTRICA A4595 EMPI INC EMPI INC L 4 STIMULATO R SUPPLIES 2 LEAD PER MONTH TECHNETIU A9537 CARL Weaver TC-99M 4 [facility] MEBROFENI INC INC N DX UP TO 15 MCI INJECTION J280Sandra HENRY 4 [facility] SINCALIDE INC INC 5 MICROGRAM S HEPATOBIL 40001 AMILCAR AMILCAR SYST 4 DONITA DONITA IMAG INC GB W/PHARMA INTERVENJ RADIOLOGI 24124 AMILCAR AMILCAR C 4 DONITA DONITA EXAMINATI ON KNEE 3 VIEWS INJECTION J2805 [facility] HENRY 4 [facility] S[facility]ALIDE INC [place] 5 [place] [address] ST[place] STONE DX/THER [address] AGT PVRT SURGERY SURGERY FACET JT CENTER CENTER CRV/[place] 2ND [place] NJX [address]37 STONE STONE DX/THER [address] AGT PVRT SURGERY SURGERY FACET JT CENTER CENTER CRV/THRC 3+ LEVEL NJX 52041 STONE STONE DX/THER [address] AGT PVRT SURGERY SURGERY FACET JT CENTER CENTER CRV/THRC 1 LEVEL RADEX 42287 AMILCAR AMILCAR SPINE 4 DONITA DONITA LUMBOSACR AL MINIMUM 4 VIEWS RADIOLOGI 71391 CARL HENRY C EXAM 4 [facility] CHEST 2 INC INC VIEWS FRONTAL&L ATERAL ECHO 80769 [facility] TABARES TTHRC R-T 4 JR DEBBIE JR DEBBIE 2D W/WOM-[place] E COM[place] SPEC&[place] [address] AMILCAR AMILCAR ABDOMINAL 4 DONITA DONITA REAL TIME W/IMAGE LIMITED SPMTRY 43174 [facility] W/VC 4 EXPIRATOR Y TAMIA W/WO MXML VOL VNTJ ANNUAL G0444 GABRIEL [place] AYSHA DEPRESSIO 4 Saroj FIGUEROA MD,PSC SCREENING 15 MINUTES IAADIADOO 79243 [facility] 3 INFLUENZA IAADIADOO 22573 [facility] [address] [place] [address] MIKEY MIKEY ABDOMEN & 3 ADR ADR PELVIS W/CONTRAS T MATERIAL LOCM Q9967 [facility] [phone] Y Y MG/ML [facility] IOD[place] [address] [facility] GAMMAGLOB 3 Y Y ULIN IGA [facility] IGD IGG IGM EACH IMMUNOASS 26273 JOINT [facility] AY 3 Y Y ANALYTE [facility] QUAL/SEMI QUAL MULTIPLE STEP COLLECTIO 36029 [facility] N VENOUS 3 Y Y BLOOD [facility] [place] [address] [facility] THYROID 3 Y Y STIMULATI [facility] NG HORMONE TSH RADEX ABD 48200 NICKELS NICKELS COMPL 3 FREDDIE FREDDIE AQT ABD W/S/E/D VIEWS 1 VIEW CH INJECTION [id number] [facility] FENTANYL 3 Y Y CITRATE [facility] 0.1 [place] [address] [facility] SURG 3 Y Y PATHOLOGY [facility] GROSS&LEELEE ROSCOPIC EXAM EGD 95562 [facility] TRANSORAL 3 Y Y BIOPSY [facility] SINGLE/MU LTIPLE INJECTION [id number] [facility] [address] [facility] HCL [place] 1 [place] [address] KASI VILLASEÑOR ABDOMINAL [address] [place] [address] TIME W/IMAGE LIMITED BLOOD 83455 ARP DANII COUNT [address] [place] [address] AUTO&AUTO DIFRNTL WBC COLLECTIO 91504 [facility] [address] [place] [address] [place] [address] [facility] AMYLASE [address] [place] [address] CULTURE 59413 [facility] BACTERIAL [address] [place] [address] QUANTTATI VE COLONY COUNT URINE COMPREHEN 25258 [facility] SIVE [address] [place] [address] [place] [address] [facility] LIPASE [address] [place] [address] URNLS DIP [address] [facility] LET REAGENT AUTO MICROSCOP Y SINUSOIDA 53826 HERDER HERDER L 3 [facility]FT[facility] VERTICAL AXIS ROTATIONA L TESTING CALORIC 75921 HERDER HERDER VESTIBULA 3 [facility]FT[facility] AFT[facility] R TEST EA IRRIGATIO N W/RECORD VSTBLR 15490 HERDER HERDER FUNCJ 3 AFTAB AFT[facility] FOVL&PERP H STIMJ OSCIL TRK RADEX 91129 KASI VILLASEÑOR ESOPHAGUS [address] [place] [address] NERVE 34426 [facility] BAI CONDUCTIO 3 SONNY SONNY N STUDIES 5-[address] SPINAL 3 S [facility] LUMBAR W/O CONTRAST MATERIAL MRI [address] SPINAL 3 S [facility] CERVICAL W/O CONTRAST MATRL MOTOR 80056 [facility] BAI &/SENS 3 [facility] NRV CNDJ PRECONF ELTRD ARRAY LIMB THERAPEUT 66621 DANIION MAURICIOURBON IC PX 1/> 2 [facility] EACH 15 MIN EXERCISES E-STIM G0283 [place] [facility] 1/> AREAS 2 [facility] WND CARE PART TX PLAN E-STIM G0283 [place] 1/> AREAS 2 [facility] HOSPITAL WND CARE PART TX PLAN THERAPEUT 06310 DANIION MAURICIOURBON IC PX 1/> 2 [facility] EACH 15 MIN EXERCISES SINUSOIDA 17855 BHUMIKA BAI L 2 [facility] VERTICAL AXIS ROTATIONA L TESTING CALORIC 24186 BHUMIKA BAI VESTIBULA 2 [facility] R TEST EA IRRIGATIO N W/RECORD SPONTANEO 31448 BHUMIKA BAI US 2 [facility] NYSTAGMUS TEST PHYSICAL 16361 [place] THERAPY 2 [facility] N CYTP 49314 [facility] LABORATOR CERV/VAG 1 AMERIC Y MEAGHAN OF AUTO THIN HOLDINGS NORMA LAYER H PREP MNL SCREEN IADNA 56178 [facility] JUAN 1 AMERIC AMERIC SPECIES HOLDINGS HOLDING DIRECT PROBE TQ IADNA 45642 [facility] 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 PAPILLOMA 1 AMERIC Y MEAGHAN OF VIRUS HOLDINGS NORMA HUMAN H AMPLIFIED PROBE TQ IADNA 25488 [facility]AN TRICHOMON 1 AMERIC AMERIC HOLDINGS HOLDING VAGINALIS DIRECT PROBE TQ IADNA 38857 [facility] LAB MEAGHAN GARDNEREL 1 AMERIC AMERIC LA HOLDINGS HOLDING VAGINALIS DIRECT PROBE TQ SPONTANEO 62676 PHYSICIAN YOMI GRE US 1 S [facility] TEST POSITIONA 70619 PHYSICIAN YOMI GRE L 1 S [facility] TEST SINUSOIDA 81181 PHYSICIAN YOMI GRE L 1 S VERTICAL SERVICES AXIS ROTATIONA L TESTING OPTKINETI 29789 PHYSICIAN YOMI GRE C [facility] 1 S BIDIR/FOV SERVICES EAL/PERIP H STIM W/REC CALORIC 78530 PHYSICIAN YOMI GRE VESTIBULA 1 S R TEST EA SERVICES IRRIGATIO N W/RECORD DRUG SCR G0434 PAVEL LANGE NOT 1 [facility] RAPHIC; ANY NUMBER PT ENC SPMTRY 40095 WEST [facility] WEST [facility] W/VC 1 EXPIRATOR Y TAMIA W/[place] [address] [place] [facility] ABDOMINAL 1 [facility] HOSPITAL TIME W/[place] [address] [facility] ESTIV[place] MAT ABDOMINAL 1 RADIOLOGY REAL TIME W/IMAGE LIMITED MRI 68600 [facility] EVELIO SPINAL 1 R OPEN [facility]COL[facility] CANAL MRI CERVICAL W/O CONTRAST MATRL 3D 78796 [facility]IO RENDERING 1 R OPEN MALCOLM W/INTERP MRI & POSTPROCE SS SUPERVISI [place] MRI 33839 [facility] EVELIO SPINAL 1 R OPEN MALCOLM CANAL MRI LUMBAR W/O CONTRAST MATERIAL DEEP D9220 ALVIN I COPELAND III, SEDATION/ 0 COPELAND III ALVIN I GENERAL PSC N0 3 ANESTHESI A-1ST 30 MINUTES OPHTH 24562 SHAKIRA WIN, MEDICAL 0 VISION JOSE M XM&EVAL COMPRE NEW PT 1/> VST Encounters Encounter Start End Date Code Location Performer Type Date EMERGENCY 69022 [facility] PHYS HIGH/URGE NT SEVERITY EMERGENCY 75518 [facility] 7 7 TESSY DEPARTMEN EMERGENCY T VISIT PHYS MODERATE SEVERITY OFFICE 36029 [facility] KARI OUTPATIEN 7 7 PHYSICIAN T VISIT S GROUP 25 MINUTES OFFICE 87701 [facility] PETTEY OUTPATIEN 7 7 PHYSICIAN T NEW 30 S GROUP MINUTES [facility]OSP[facility] - 7 7 [facility] OUTPATIEN INC T EMERGENCY 23312 [facility] 7 7 [facility] DEPARTMEN INC T VISIT LIMITED/M INOR PROB EMERGENCY 68365 [facility] ARNOLD 7 7 TESSY DEPARTMEN EMERGENCY T VISIT PHYS MODERATE SEVERITY OFFICE 85497 [facility] FRYMAN OUTPATIEN 6 6 PHYSICIAN T VISIT S GROUP 15 MINUTES EMERGENCY 26908 [facility] CHANDEL 6 6 TESSY DEPARTMEN EMERGENCY T VISIT PHYS MODERATE SEVERITY EMERGENCY 30960 [facility] ARNOLD 6 6 TESSY MARION DEPARTMEN EMERGENCY T VISIT PHYS HIGH/URGE NT SEVERITY [facility] - 6 6 [facility] OUTPATIEN INC T OFFICE 56025 [facility] KARI OUTPATIEN 6 6 PHYSICIAN LEELEE T VISIT S GROUP 15 MINUTES HOSPITAL [facility] - 6 6 [facility] OUTPATIEN INC T [facility]OSPITAL [facility] - 6 6 [facility] OUTPATIEN INC T OFFICE 61052 [facility] KARI OUTPATIEN 6 6 PHYSICIAN LEELEE T VISIT S GROUP 25 MINUTES OFFICE 55775 [facility] OUTPATIEN 6 6 HEALTH HEN T VISIT MEDICAL 10 GROUP MINUTES EMERGENCY 90987 [facility] 6 6 TESSY PAT DEPARTMEN EMERGENCY T VISIT PHYSI HIGH/URGE NT SEVERITY EMERGENCY 23493 [facility] DEPT 6 6 TESSY LIA VISIT EMERGENCY HIGH PHYSI SEVERITY& THREAT FUNCJ EMERGENCY 00536 [facility] 6 6 TESSY AYSHA DEPARTMEN EMERGENCY T VISIT SERV HIGH/URGE NT SEVERITY OFFICE 86311 [facility] 6 6 POINT AYSHA T VISIT FAMILY 15 CARE, IN MINUTES EMERGENCY 88252 [facility] RICHARD 6 6 TESSY N RIDGE DEPARTMEN EMERGENCY T VISIT PHYSI MODERATE SEVERITY EMERGENCY 41673 [facility] DEPT 6 6 TESSY PHI VISIT EMERGENCY HIGH PHYSI SEVERITY& THREAT FUNCJ EMERGENCY 74395 [facility] 6 6 TESSY LIA DEPARTMEN EMERGENCY T VISIT PHYSI HIGH/URGE NT SEVERITY OFFICE 82492 [facility] OUTPATIEN 5 5 PHYSICIAN LEELEE T VISIT S GROUP 15 MINUTES EMERGENCY 45818 [facility] SWINEY 5 5 TESSY PAT DEPARTMEN EMERGENCY T VISIT PHYS MODERATE SEVERITY EMERGENCY 94759 NEISHA WILL 5 5 PHYSICIAN RAMÓN DEPARTMEN S, PLLC T VISIT MODERATE SEVERITY [facility] [facility] 5 5 [facility] [facility] 5 5 [facility] EMERGENCY 99627 [facility] 4 TESSY ABDIRASHID [facility] EMERGENCY T VISIT PHYS HIGH/URGE NT SEVERITY [facility] [place] - 4 4 [facility] UNIVERSIT - [address] [facility] CARL - 4 4 [facility] OUTPATIEN [facility] CARL - 4 4 [facility] 4 [facility] 96070 ADIEL ANT ADIEL ANT OUTPATIEN 4 4 T VISIT 25 MINUTES EMERGENCY 23066 ALEX JOHNSON DONITA 4 4 DEPARTMEN T VISIT HIGH/URGE NT SEVERITY OFFICE 45563 [facility] OUTPATIEN 4 4 T VISIT 15 MINUTES OFFICE 07494 GABRIEL [facility] OUTPATIEN 4 4 Antwan FIGUEROA MD,PSC MINUTES OFFICE 07910 [facility] OUTPATIEN 4 4 T VISIT 15 MINUTES OFFICE 46799 [facility] OUTPATIEN 3 3 T VISIT 25 MINUTES HOSPITAL UNIVERSIT - 3 3 [facility] T OFFICE 91498 ADIEL ANT ADIEL ANT CONSULTAT 3 3 ION NEW/ESTAB PATIENT 60 MIN HOSPITAL UNIVERSIT - 3 3 Y [facility] T EMERGENCY 07056 UNIVERSIT 3 3 Y [facility] T VISIT HIGH/URGE NT SEVERITY EMERGENCY 36934 ECKERLINE ECKERLINE 3 3 JR GABRIELLE JR [facility] T VISIT MODERATE SEVERITY HOSPITAL UNIVERSIT - 3 3 Y [facility] T OFFICE 71066 YOMI GRE YOMI GRE OUTPATIEN 3 3 T VISIT 25 MINUTES EMERGENCY 67768 [facility] TODD 3 3 SONNY [facility] DEPARTMENT T VISIT MODERATE SEVERITY HOSPITAL UNIVERSIT - 3 3 Y [facility] T OFFICE 15178 [facility] T VISIT 15 [facility]ES [facility]ICE 71038 [facility] 3 3 SONNY SONNY T VISIT 15 MINUTES [facility] OFF[facility] 75615 [facility] 3 3 T VISIT 15 MINUTES OFFICE 28442 [facility] AFTAB AFTAB T VISIT 15 MINUTES [facility] [place] - 3 3 [facility] T OFFICE 54760 [facility] 3 3 T VISIT 15 MINUTES OFFICE 31327 [facility] OUT[facility] 3 3 SONNY SONNY T VISIT 25 MINUTES OFFICE 06338 [facility] OUT[facility] 3 3 SONNY SONNY T VISIT 25 MINUTES EMERGENCY 08608 KEELY SÁNCHEZ 3 3 [facility] T VISIT MODERATE SEVERITY OFFICE 23465 YOMI GRE YOMI GRE OUTPATIEN 2 2 T VISIT 25 MINUTES [facility]OSP[facility] [place] - 2 2 [facility] T OFFICE 90412 [facility] OUTPATIEN 2 2 T VISIT 25 MINUTES OFFICE 82326 YOMI GRE YOMI GRE OUTPATIEN 2 2 T VISIT 25 MINUTES EMERGENCY 35509 MAHER MAHER 2 2 PHI PHI DEPARTMEN T VISIT HIGH/URGE NT SEVERITY OFFICE 01565 [facility] 2 2 MAR MAR T VISIT 15 MINUTES EMERGENCY 24889 CHIP BARBOSAMAN 2 2 ALEX ALEX DEPARTMEN T VISIT MODERATE SEVERITY OFFICE 75849 [facility] 1 1 MAR MAR T VISIT 15 MINUTES OFFICE 97268 CATHERINE ALEXANDER OUTPATIEN 1 1 BECKI BECKI T VISIT 15 MINUTES OFFICE 50679 PHYSICIAN YOMI GRE OUTPATIEN 1 1 S T VISIT SERVICES 15 MINUTES OFFICE 90043 PHYSICIAN YOMI GRE OUTPATIEN 1 1 S T VISIT SERVICES 15 MINUTES OFFICE 92498 PHYSICIAN YOMI GRE OUTPATIEN 1 1 S T VISIT SERVICES 15 MINUTES OFFICE 50400 PHYSICIAN YOMI GRE OUTPATIEN 1 1 S T VISIT SERVICES 15 MINUTES OFFICE 50569 PHYSICIAN YOMI GRE OUTPATIEN 1 1 S T NEW 30 SERVICES MINUTES OFFICE 38937 [facility] OUTPATIEN 1 1 [facility] MAR T VISIT E CENTER 15 MINUTES OFFICE 17823 [place] FATIMAH PHI CONSULTAT 1 1 MEDICAL ION SERV NEW/ESTAB FOUNDATIO PATIENT 40 MIN OFFICE 87698 [facility] OUTPATIEN 1 1 T NEW 30 MINUTES [facility] [place] - 1 1 [facility] T OFFICE 81546 ALVIN COPELAND III, OUTPATIEN 0 0 MIN [place] NEW 20 PSC N0 3 MINUTES
--- OUTSIDE RECORDS SUMMARY | 2016-12-25 18:54 | External Medical Summary Rpt ---
Author Author , JERRICA Organization JERRICA Address Unknown Phone [email or web address] Care Team Providers Care Elementary Reading Tutor Name Role Phone AIDA DONNIE, AIDA Unavailable Unavailable DONNIE LU ALFONSO, LU Unavailable Unavailable ALFONSO KRYSTINA TEJADAOLD Unavailable Unavailable MALLORY SCHULTZ, ARNOLD Unavailable Unavailable MARION FIGUEROA, Unavailable Unavailable ,PSC, GABRIEL FIGUEROA MD,PSC [facility] Unavailable Unavailable [facility], [facility] TODD SONNY, TODD Unavailable Unavailable SONNY TODD SONNY, TODD Unavailable Unavailable SONNY ADIEL ANT, ADIEL ANT Unavailable Unavailable ADIEL ANT, ADIEL ANT Unavailable Unavailable [facility] Unavailable Unavailable [facility]OSPITAL, [facility] JAM, [facility] JAM Unavailable Unavailable [...] Unavailable [facility] Unavailable Unavailable [place], [facility] [place] ECKERLINE JR GABRIELLE, [...] AFTAB HERDER AFTAB, HERDER Unavailable Unavailable AFTAB [facility], Unavailable Unavailable [facility] Un[facility] Unavailable Unavailable [place], [facility] RIGGS GONZALO, RIGGS GONZALO Unavailable Unavailable CATHERINE BECKI, CATHERINE Unavailable Unavailable BECKI CATHERINE BECKI, CATHERINE Unavailable Unavailable BEC[facility] Unavailable Unavailable [facility], [facility] Unavailable Unavailable [facility], [facility] Unavailable Unavailable [facility], [facility] Unavailable Unavailable [facility] NICOLETTE RAMÓN, NICOLETTE Unavailable Unavailable RMAÓN MCKEMIE JR DEBBIE, Unavailable Unavailable MCKEMIE JR DEBBIE MCKEMIE JR DEBBIE, Unavailable Unavailable MCKEMIE JR DEBBIE YOMI GRE, YOMI GRE Unavailable Unavailable YOMI GRE, YOMI GRE Unavailable Unavailable WASHINGTON AYSHA, WASHINGTON AYSHA Unavailable Unavailable NICKELS FREDDIE, NICKELS Unavailable Unavailable FREDDIE NICKELS FREDDIE, NICKELS Unavailable Unavailable FREDDIE GUERRERO DEBBIE, GUERRERO Unavailable Unavailable DEBBIE [facility] Unavailable Unavailable [facility], [facility] PETTEY, PETTEY Unavailable Unavailable [facility], Unavailable [facility]available [facility] PICKEN JR, Unavailable Unavailable PICKEN JR OZ HEN, OZ Unavailable Unavailable HEN [facility], Unavailable Unavailable [facility], Unavailable Unavailable [facility] NARCISA SABILLON, Unavailable Unavailable NARCISA SABILLON [facility] Unavailable Unavailable [id number] [address] [id number], [facility] [id number] [address] [id number] [place] Unavailable Unavailable [...] SHOP FATIMAH PHI, FATIMAH PHI Unavailable Unavailable [facility], Unavailable Unavailable [facility] MAHER PHI, MAHER Unavailable Unavailable PHI MAHER [...] R062 WHEEZING 07-06-2016 [facility] PHYS [id number] UNSPECIFIED 06-28-2016 [facility] INJURY PHYSICIANS LEFT ANKLE GROUP SUBSEQUENT ENCNTR [id number] SPRAIN 06-14-2016 [facility] OTHER PHYSICIANS LIGAMENT LT GROUP ANKLE INITIAL ENCOUNTER G8921 CHRONIC 06-01-2016 [facility] DUE TO [facility] TRAUMA INC [id number] PAIN IN 06-01-2016 [facility] LEFT FOOT [facility] INC Z720 TOBACCO USE 06-01-2016 [facility] INC [id number] PAIN IN 05-30-2016 [facility] [place] LEFT ANKLE RADIOLOGY [id number] SPRAIN UNS 05-30-2016 [facility] LIGAMENT N EMERGENCY LEFT ANKLE PHYS INITIAL ENCOUNTER Y93F2 ACTIVITY 05-30-2016 [facility] CAREGIVING N EMERGENCY LIFTING PHYS A599 TRICHOMONIA 05-18-2016 [facility] UNSPECIFIED B9689 OTH SPEC 05-18-2016 [facility] BACTERIAL [facility] AGNT CAUSE DZ CLASSIFIED ELSW J0100 ACUTE 05-18-2016 [facility] MAXILLARY PHYSICIANS SINUSITIS GROUP UNSPECIFIED N898 OTHER 05-18-2016 [facility] SPECIFIED LLC NONINFLAMMA TORY DISORDERS VAGINA B82155 ENCOUNTER 05-18-2016 [facility] 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 LLC GENERAL RTN W/O ABNORMAL FIND Z139 ENCOUNTER 05-18-2016 [facility] FOR PHYSICIANS SCREENING GROUP UNSPECIFIED [id number] SPRAIN 04-10-2016 [facility] TARSOMETATA N EMERGENCY RSAL PHYS LIGAMENT LT FOOT INIT ENC [id number] SLIP TRIP & 04-10-2016 [facility] STUMBLING N EMERGENCY W/O FALLING PHYS UNS INIT ENC R1011 RIGHT UPPER 04-07-2016 [place] [facility] E119 TYPE 2 03-29-2016 [facility] DIABETES PHYSICIANS MELLITUS GROUP WITHOUT COMPLICATIO NS E663 OVERWEIGHT 03-29-2016 [facility] PHYSICIANS GROUP E785 HYPERLIPIDE 03-29-2016 [facility] KENNY PHYSICIANS UNSPECIFIED GROUP G629 POLYNEUROPA 03-29-2016 [facility] THY PHYSICIANS UNSPECIFIED GROUP M549 DORSALGIA 03-29-2016 [facility] UNSPECIFIED PHYSICIANS GROUP Z1231 ENCOUNTER 03-29-2016 [facility] SCREENING PHYSICIANS MAMMO MALIG GROUP NEOPLASM BREAST K219 GASTRO-ESOP 02-09-2016 [facility] H REFLUX PHYSICIANS DISEASE GROUP WITHOUT ESOPHAGITIS B850 PEDICULOSIS 12-30-2015 [facility] DUE TO HEALTH PEDIC[facility] MEDICAL HUMANUS GROUP CAPITIS J40 BRONCHITIS 12-04-2015 [facility] NOT N EMERGENCY SPECIFIED PHYSI ACUTE OR CHRONIC R0789 OTHER CHEST 12-04-2015 [facility] [place] PAIN RADIOLOGY R091 PLEURISY 12-04-2015 [facility] EM[facility] PHYSI M542 CERVICALGIA 11-18-2015 [facility] [place] RADIOLOGY Z025NGH STRAIN 11-18-2015 [facility] MUSCLE FASC N EMERGENCY & TENDON SERV NECK LEVL INIT ENC [id number] EXPOSURE TO 11-18-2015 [facility] OTHER N EMERGENCY SPECIFIED SERV FACTORS INITIAL ENC Z45581 ELEVATED 11-15-2015 [facility] CELL COUNT UNSPECIFIED G2581 RESTLESS 11-15-2015 [facility] SYNDROME R7309 OTHER 11-15-2015 [facility] GLUCOSE R0781 PLEURODYNIA 10-13-2015 [facility] EM[facility] PHYSI R1030 LOWER 10-03-2015 [facility] [place] ABDOMINAL RADIOLOGY PAIN UNSPECIFIED M545 LOW BACK 08-12-2015 [facility] PAIN N EMERGENCY PHYSI 33183 METHICILLIN 02-02-2015 [facility] RESISTANT PHYSICIANS STAPHYLOCOC GROUP CUS AUREUS 96243 OTHER 02-02-2015 [facility] CHRONIC PHYSICIANS PAIN GROUP 490 BRONCHITIS 02-02-2015 [facility] NOT PHYSICIANS SPECIFIED GROUP ACUTE OR CHRONIC 7231 CERVICALGIA 02-02-2015 [facility] PHYSICIANS GROUP 460 ACUTE 01-26-2015 [facility] NASOPHARYNG N EMERGENCY ITIS PHYS 6250 DYSPAREUNIA 01-26-2015 [facility] EMERGENC[facility] PHYS 6273 POSTMENOPAU 01-26-2015 [facility] N EMERGENCY ATROPHIC PHYS VAGINITIS 7841 THROAT PAIN 01-26-2015 [facility] 462 ACUTE 01-15-2015 [facility] PHARYNGITIS [facility]YSICIANS, [facility] 7242 LUMBAGO 06-22-2014 [facility] V571 OTHER 06-22-2014 [facility] 57196 CHRONIC 05-06-2014 [facility] OBSTRUCTIVE N EMERGENCY ASTHMA PHYS UNSPECIFIED 44699 WHEEZING 05-06-2014 [facility] N EMERGENCY PHYS 47538 OTHER 03-05-2014 [facility] SPECIFIED ARTHROPATHY PELVIC REGION&THIG H 7291 UNSPECIFIED 03-05-2014 [facility] MYALGIA AND MYOSITIS 7905 OTHER 12-23-2013 [facility] SERUM ENZYME LEVELS 2113 BENIGN 11-26-2013 [facility] NEOPLASM [facility] COLON 4550 INTERNAL 11-26-2013 [facility] HEMORRHOIDS [facility] WITHOUT MENTION COMP 69281 UNSPECIFIED 11-26-2013 [facility] CONSTIPATIO N 5781 BLOOD IN 11-26-2013 [facility] 09554 ABDOMINAL 11-26-2013 [facility] GENERALIZED 56603 NAUSEA 10-09-2013 [facility] ALONE DONITA 07162 ABDOMINAL 10-09-2013 [facility] PAIN, DONITA UNSPECIFIED SITE 21741 ABDOMINAL 10-09-2013 [facility] PA[facility] RIGHT [facility] UPPER INC QUADRANT 65859 PAIN IN 09-30-2013 [facility] JOINT, DONITA LOWER LEG E8889 UNSPECIFIED 09-30-2013 [facility] FALL DONITA V642 SURG/OTH 09-25-2013 [facility] PROC NOT [facility] CARRIED OUT INC BECAUSE PTS DECN 7210 CERVICAL 09-10-[address] SPONDYLOSIS SURGERY WITHOUT CENTER MYELOPATHY 7213 LUMBOSACRAL 09-10-2013 [facility] DONITA SPONDYLOSIS WITHOUT MYELOPATHY 71706 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 [facility] LUMBAR/LUMB DONITA OSACRAL INTERVERTEB RAL DISC 47003 SPINAL STEN 09-10-2013 [facility] LUMB REG DONITA W/O NEUROGENIC CLAUDICATIO N 486 PNEUMONIA, 09-02-2013 [facility] ORGANISM [facility] UNSPECIFIED INC 514 PULMONARY 09-02-2013 [facility] CONGESTION DONITA AND HYPOSTASIS 7862 COUGH 09-02-2013 [facility] DONITA 5758 OTHER 08-20-2013 [facility] SPECIFIED DONITA DISORDER OF GALLBLADDER 46407 FEVER 08-20-2013 RAYSHAWN BREWER UNSPECIFIED DEBBIE 21282 CHEST PAIN 08-20-2013 R[facility]SHAWN BREWER UNSPECIFIED DEBBIE 7873 FLATULENCE 08-01-2013 ADIEL ANT ERUCTATION AND GAS PAIN 4658 ACUTE URIS 07-08-2013 [facility] DONITA OF OTHER MULTIPLE SITES 2893 LYMPHADENIT 07-03-2013 [facility] IS UNSPECIFIED EXCEPT MESENTERIC 4660 ACUTE 07-03-2013 [facility] BRONCHITIS 22045 ASTHMA, 07-03-2013 [facility] UNSPECIFIED , UNSPECIFIED STATUS 3544 CAUSALGIA 06-17-2013 [facility] OF UPPER HENRY LIMB ,PSC 7224 DEGENERATIO 06-17-2013 [facility] N OF HENRY CERVICAL ,PSC INTERVERTEB RAL DISC V790 SCREENING 06-17-2013 [facility] FOR HENRY DEPRESSION ,PSC 4871 INFLUENZA 04-22-2013 [facility] WITH OTHER RESPIRATORY MANIFESTATI ONS 5368 DYSPEPSIA&O 04-04-2013 [facility] DISORDERS FUNCTION STOMACH 06198 OTHER 04-02-2013 NICKELS FREDDIE SYMPTOMS INVOLVING DIGESTIVE SYSTEM OTHER V1279 PERSONAL 04-02-2013 [facility] DISEASES DIGESTIVE DISEASE V4589 OTHER 04-02-2013 ECKERLINE POSTSURGICA JR GABRIELLE L STATUS OTHER 22467 INTERVERT 11-14-2012 YOMI GRE LUMB DISC D/O W/MYELOPATH Y LUMB REGION 7812 ABNORMALITY 11-14-2012 YOMI GRE OF GAIT V7109 OBSERVATION 11-14-2012 YOMI GRE OF OTHER SUSPECTED MENTAL CONDITION 6826 CELLULITIS 11-08-2012 TODD SONNY AND ABSCESS OF LEG EXCEPT FOOT 05814 UNSPECIFIED 11-04-2012 [facility] ESOPHAGITIS 98829 OTHER SPEC 11-04-2012 GUERRERO DEBBIE GASTRITIS WITHOUT MENTION HEMORRHAGE 7871 HEARTBURN 11-04-2012 LU ALFONSO 98519 REFLUX 10-31-2012 [facility] ESOPHAGITIS 3384 CHRONIC 10-15-2012 BHUMIKA DENNIS PAIN SYNDROME 7234 BRACHIAL 10-15-2012 [facility] NEURITIS OR RADICULITIS NOS 7238 OTHER 10-15-2012 [facility] SYNDROMES AFFECTING CERVICAL REGION 71422 ABDOMINAL 10-09-2012 [facility] NIRMAL PAIN, EPIGASTRIC 7919 OTHER 10-09-2012 [facility] EXAMINATION OF URINE 7804 DIZZINESS 09-17-2012 BALDEMAR UGALDE AND GIDDINESS E9352 OTH 09-17-2012 HERDER AFTAB OPIATES&[place] [address] ESOPHAGEAL 09-09-2012 ESTIV[facility] MAT REFLUX 4549 ASYMPTOMATI 09-03-2012 [facility] C VARICOSE VEINS 7295 PAIN IN 08-20-2012 [facility] RANDALLIA SOFT TISSUES OF LIMB 36048 UNSPECIFIED 06-11-2012 [facility] ARTHROPATHY OTHER SPECIFIED SITES 7220 DISPLCMT 06-11-2012 [facility] CERV SERVICES INTERVERT DISC WITHOUT MYELOPATHY 11681 INTERVERT 02-21-2012 [facility] DISC [facility] W/MYELOPATH Y CERV REGION 7244 THORACIC/MARLA 02-21-2012 [facility] DICULITIS UNSPEC 8470 NECK SPRAIN 02-21-2012 [facility] V5789 OTHER 02-21-2012 [facility] ION PROCEDURE OTHER 4619 ACUTE 02-06-2012 [facility] SINUSITIS, UNSPECIFIED 5990 URINARY 07-03-2011 [facility] PHI TRACT INFECTION SITE NOT SPECIFIED 7840 HEADACHE 07-03-2011 NIKA PHI 70647 LUMP OR 06-26-2011 EDWARD MAR MASS IN [...] MAR FOR MALIGNANT NEOPLASM OF THE CERVIX 02245 OSTEOARTHRO 03-22-2011 CATHERINE BECKI S UNSPEC WHETHER GEN/LOC UNSPEC SITE 71786 PAIN IN 03-22-2011 CATHERINE BECKI JOINT PELVIC REGION AND THIGH 8472 LUMBAR 03-14-2011 [facility]ANS SPRAIN AND SERVICES KAYLEIGH V5883 ENCOUNTER 02-10-2011 PHYSICIANS FOR SERVICES THERAPEUTIC DRUG MONITORING 20177 SPONDYLOSIS 01-20-2011 PHYSICIANS WITH SERVICES MYELOPATHY LUMBAR REGION 7211 CERVICAL 12-30-2010 PHYSICIANS SPONDYLOSIS SERVICES WITH MYELOPATHY 7230 SPINAL 12-30-2010 PHYSICIANS STENOSIS IN SERVICES CERVICAL REGION V5869 LONG-TERM 12-27-2010 PAVEL (CURRENT) PRIMARY USE OF [facility]ARE LLC OTHER MEDICATIONS 7245 UNSPECIFIED 12-01-2010 [facility] 496 CHRONIC 08-11-2010 [facility] AIRWAY OBSTRUCTION NEC 5718 OTHER 08-01-2010 [facility] [place] CHRONIC RADIOLOGY NONALCOHOLI C LIVER DISEASE 13922 UNSPECIFIED 08-01-2010 [facility] KIDNEY DISEASE 21361 ABDOMINAL 08-01-2010 [facility] PAIN, LEFT [facility] QUADRANT 50504 DISPLCMT 07-06-2010 [facility] LUMBAR OPEN MRI INTERVERT DISC W/O MYELOPATHY 50150 SPASM OF 07-06-2010 [facility] MUSCLE OPEN MRI 85820 SCOLIOSIS , 07-06-2010 [facility] IDIOPATHIC OPEN MRI 5210 DENTAL 12-21-2009 ALVIN [...] 37 3- 4- 00 01 UC ve [place] 26 20 20 01 [place] N 71 [...] 37 3- 7- 00 01 UC ve MN 26 20 20 01 [place] N 71 [...] 05 06 14 7 00 KE Ac MI 86 -2 -2 .0 00 NT ti [...] 5 19 CV CE S TA PH MN AR NO MA PH CY EN LL [...] 37 4- 5- 00 01 UC ve MN 26 20 20 01 [place] N 71 [...] 37 6- 7- 00 00 UC ve MN 26 20 20 96 [place] N 71 [...] PH AR MA CY #3 01 6 MI 00 02 03 15 5 00 KE Ac ED 14 -1 -2 .0 00 NT ti NI 39 6- 4- 00 01 UC ve SO 73 20 20 00 [place] NE 80 17 17 56 5 05 CV 20 S PH MG AR MA TA CY BL ET LL C, DB A CV S PH AR MA CY #3 01 6 MI 60 02 03 24 6 00 KE [...] PH AR MA CY #3 01 6 MI 00 02 03 10 5 00 KE [...] 37 3- 0- 00 00 UC ve MN 26 20 20 96 [place] N 71 [...] 37 7- 0- 00 00 UC ve MN 26 20 20 96 [place] N 71 [...] PH AR MA CY #3 01 6 MI 59 12 01 20 7 00 KE [...] 37 8- 9- 00 00 UC ve MN 26 20 20 96 [place] N 71 16 17 36 HC 0 47 CV L S ER PH AR 50 MA 0 CY MG LL TA C, BL ET DB A CV S PH AR MA CY #3 01 6 MI 00 07 10 3 30 30 RI [...] 10 10 0 30 30 WA 96 MN Ac TA 16 -0 -0 .0 LG 01 CK ti LO 20 7- 7- 00 RE 91 ve MI 05 20 20 EN GR AM 41 11 11 S EG 0 #5 OR HB 57 Y R 4 E 40 # 55 MG 74 TA BL ET AL 00 10 10 0 90 30 WA 96 MN Ac MI 22 -0 -0 .0 LG 01 CK ti AZ 82 7- 7- 00 RE 93 ve OL 03 20 20 EN GR AM 15 11 11 S EG 1 0 #5 OR 57 Y MG 4 E # TA 55 BL 74 ET MI 00 08 10 2 60 10 RI [...] 09 10 0 90 30 WA [address] 59 -2 -0 .0 LG 21 CK ti OC 13 3- 4- 00 RE 55 ve OD 20 20 20 EN GR ON 20 11 11 S EG -A 1 #9 OR CE 71 Y TA 2 E MN # NO 97 PH 12 EN 5- 32 5 BA 00 08 10 2 90 30 WA 27 RICH Ac CL 17 -0 -0 .0 LG 30 HN ti OF 24 9- 2- 00 RE 23 SO ve EN 09 20 20 EN N 76 11 11 S KE 20 0 #9 71 N MG 2 B # TA 97 BL 12 ET MI 00 07 09 3 30 30 RI [...] 9- 9- 00 RE 36 EY ve MI 05 20 20 EN AM 41 11 11 S BE 0 #9 NJ HB 71 AM R 2 IN 40 # B 97 MG 12 TA BL ET AL 00 09 09 0 [address] Ac MI 22 -0 -0 .0 LG 81 OR [...] B # TA 97 BL 12 ET MI 00 08 09 2 60 10 RI 20 SH Ac OM 60 -1 -0 .0 TE 68 OC ti ET 35 1- 3- 00 88 KE ve SALAZAR 43 20 20 AI Y ZI 82 11 11 D MA NE 1 PH RG AR AR 25 MA ET CY L MG 07 TA 85 BL 6 ET # 07 85 MI 00 07 08 3 30 30 RI [...] 07 ET 85 6 # 07 85 MI 00 08 08 2 60 10 RI [...] 0 60 30 WA 27 RICH Ac MI 22 -0 -1 .0 LG 30 HN [...] 07 90 30 RI 20 DA Ac MI 60 -1 -1 .0 TE 31 ti [...] 71 M 2 S # 97 12 MI 00 07 07 3 30 30 RI [...] 11 RT 1 RI CH AR D MI 00 06 05 5 30 30 WI [...] IN AR C D TA BL ET MI 00 06 04 5 30 30 WI [...] 0 90 30 WI 36 FI Ac MI 76 -1 -1 .0 LS 53 NC [...] 15 IN C MG TA BL ET MI 00 06 02 5 30 30 WI [...] 0 90 30 WI 36 FI Ac MI 76 -1 -1 .0 LS 23 NC [...] 0 90 30 WI 35 FI Ac MI 76 -1 -1 .0 LS 91 NC [...] 0 90 30 EA 19 FI Ac MI 78 -2 -[address] 73 NC [...] BL CY ET NT HI AN A MI 00 09 10 3 30 30 EA [...] 0 90 30 EA 19 FI Ac MI 78 -3 -[address] 35 NC [...] CY OF CY NT HI AN A MI 00 09 09 3 30 30 EA [...] 0 90 30 EA 18 FI Ac MI 78 -0 -[address] 97 NC [...] 0 90 30 WI 34 FI Ac MI 76 -0 -0 .0 LS 17 NC [...] 50 C 0 MG TA BL ET MI 00 03 07 3 30 30 WI [...] H MG C M TA BL ET MI 00 03 06 3 30 30 WI 32 BR Ac EM 04 -1 -0 .0 LS 86 OD ti AR 61 7- 2- 00 ON 81 SK ve IN 10 20 20 Y [address] ZAMORA 0. 1 UG NN 9 ET MG IN H C M TA BL ET Procedures Procedure DOS Code Location Performer Comment RADIOLOGI 57335 [facility] [place] SCALF C EXAM 7 RADIOLOGY CHEST 2 VIEWS FRONTAL&L ATERAL RADEX 74635 [facility] [place] MIREILLE ANKLE 7 RADIOLOGY COMPLETE MINIMUM 3 VIEWS IADNA 65413 [facility] CHLAMYDIA 6 LLC ER JR TRACHOMAT IS AMPLIFIED PROBE TQ IADNA 09005 [facility] TRICHOMON 6 LLC ER JR VAGINALIS AMPLIFIED PROBE TECH IADNA 61423 [facility], [facility] JUAN 6 LLC ER JR SPECIES AMPLIFIED PROBE TQ IADNA 65280 [facility], [facility] GARDNEREL 6 LLC ER JR LA VAGINALIS AMPLIFIED PROBE TQ CYTP C/V 51704 [facility], [facility] AUTO THIN 6 LLC ER JR LYR PREPJ SCR MNL RESCR PHYS IADNA 40375 [facility] HERPES 6 LLC ER JR SOMPLX VIRUS AMPLIFIED PROBE TQ IADNA 09121 [facility], [facility] NEISSERIA 6 LLC ER JR GONORRHOE AE AMPLIFIED PROBE TQ RADEX 41308 [facility] [place] SCALF NIRMAL FOOT 6 RADIOLOGY COMPLETE MINIMUM 3 VIEWS RADEX 53267 [facility] [place] SCALF NIRMAL ANKLE 6 RADIOLOGY COMPLETE MINIMUM 3 [place] [address] [facility]RY ABDOMINAL 6 [facility] HOS[facility]OS[facility] REAL INC INC TIME W/IMAGE LIMITED BLOOD 80969 [facility] H[facility]RY COUNT 6 [facility] COMPLETE INC INC AUTO&AUTO DIFRNTL WBC HEPATITIS 13681 [facility] Alcantar 6 [facility]OS[facility] [place] [address] [facility] HENRY THYROID 6 MEM HOSP MEM HOSP STIMULATI INC INC NG HORMONE TSH HEPATITIS 09361 [facility] Tatum 6 MEM HOSP MEM [facility]OS[facility] ANTIBODY INC INC HAAB HEPATITIS 78035 [facility] [place] CORE 6 MEM HOSP MEM [facility]OS[facility] ANTIBODY INC INC HBCAB TOTAL HEPATITIS 19082 [facility] [place] SURF 6 [facility] [place] [address] [facility]RY HEPATITIS 6 MEM HOS[facility]OS[facility] B INC INC SURFACE ANTIGEN COMPREHEN 63027 [facility] SIVE 6 [facility] H[facility] [place] [address] [facility] HENRY THYROXINE 6 MEM HOS[facility]OS[facility] TOTAL INC INC LIPID 42443 [facility] PANEL 6 MEM HOS[facility] MEM HOSP INC INC COLLECTIO 05631 CARL HENRY N VENOUS 6 MEM HOSP MEM [facility]OS[facility] BLOOD INC INC VENIPUNCT URE HEMOGLOBI 14114 [facility] HENRY N 6 MEM HOSP MEM HOSP GLYCOSYLA INC INC ALEAH A1C ALBUMIN 24985 [facility] URINE 6 [facility] HOS[facility]OS[facility] MICROALBU INC INC MIN QUANTIATI VE CT THORAX 94954 [facility] [place] BROWN 6 RADIOLOGY RAY W/CONTRAS T MATERIAL RADIOLOGI [address] [facility] [place] [address] EXAM 6 RADIOLOGY MOIRA CHEST 2 VIEWS FRONTAL&[place] [address] [facility] [place] PENA JAM CERVICAL 6 RADIOLOGY SPINE W/O CONTRAST MATERIAL BLOOD 51039 [facility] SMEAR 6 DIAGNOSTI DIAGNOSTI PERIPHERA CS CS L INTERP PHYS W/WRIT REPORT BLOOD 82974 [facility] COUNT 6 DIAGNOSTI DIAGNOSTI COMPLETE CS CS AUTO&AUTO DIFRNTL WBC RADIOLOGI 66010 [facility] [place] AIDA C EXAM 6 RADIOLOGY DONNIE CHEST 2 VIEWS FRONTAL&[place] [address] [facility] [place] SHAUN ABDOMEN & 6 RADIOLOGY LD IV ALL PELVIS W/O CONTRAST MATERIAL THERAPEUT 87714 KASI VILLASEÑOR IC PX 1/> 5 [facility] EACH 15 MIN EXERCISES PHYSICAL 81242 [facility] TH[facility]AP[facility] 5 [facility] N ELECTRICA A4595 HAM-ITI Help Scout EMPI INC L 4 STIMULATO R SUPPLIES 2 LEAD PER MONTH ELECTRICA A4595 [facility] INC EMPI INC L 4 STIMULATO R SUPPLIES 2 LEAD PER MONTH ELECTRICA A4595 E[facility] INC EMPI INC L 4 STIMULATO R SUPPLIES 2 LEAD PER MONTH HEPATITIS 93738 [facility] A 4 [facility] HAAB HEPATITIS 60372 [facility] CORE 4 [facility] HBCAB TOTAL HEPATITIS 88367 [facility] SURF 4 [facility] HBSAB BLOOD 62620 [facility] COUNT 4 [facility] AUTOMATED COLLECTIO 71812 [facility] N VENOUS 4 [facility] VENIPUNCT URE HEPATIC 42814 [facility] FUNCTION 4 [facility] ACUTE 54212 [facility] HEPATITIS 4 [facility] ELECTRICA A4595 EMP[facility] INC EMPI INC L 4 STIMULATO R SUPPLIES 2 LEAD PER MONTH COLONOSCO 51809 [facility] 4 Y Y W/[facility] [place]ING[place] [address] [facility] 4 Y Y PATHOLOGY [facility] GROSS&LEELEE ROSCOPIC EXAM ANES 99294 SHMUEL [place] LOWER 4 SONNY SONNY INTESTINE ENDOSCOPY DISTAL DUODENUM INFUSION J7030 [facility] 4 Y Y SALINE [facility] SOLUTION 1000 CC ELECTRICA A4595 EMPI INC EMPI INC L 4 STIMULATO R SUPPLIES 2 LEAD PER MONTH TECHNETIU A9537 CARL Waever TC-99M 4 MEM HOSP MEM HOS[facility] MEBROFENI INC INC N DX UP TO 15 MCI INJECTION J280Sandra HENRY 4 [facility] HOS[facility]OS[facility] SINCALIDE INC INC 5 MICROGRAM S HEPATOBIL 93961 AMILACR AMILCAR SYST 4 DONITA DONITA IMAG INC GB W/PHARMA INTERVENJ RADIOLOGI 61538 AM[facility] AMILCAR C 4 DONITA DONITA EXAMINATI ON KNEE 3 VIEWS INJECTION J2805 CARL HENRY 4 [facility] SINCALIDE INC INC 5 [place] NJX 13233 STONE STONE DX/THER [address] AGT PVRT SURGERY SURGERY FACET JT CENTER CENTER CRV/THRC 2ND LEVEL NJX 62972 STONE STONE DX/THER [address] AGT PVRT SURGERY SURGERY FACET JT CENTER CENTER CRV/THRC 3+ LEVEL NJX 43462 STONE STONE DX/THER [address] AGT PVRT SURGERY SURGERY FACET JT CENTER CENTER CRV/THRC 1 LEVEL RADEX 74619 AMILCAR AMILCAR SPINE 4 DONITA DONITA LUMBOSACR AL MINIMUM 4 VIEWS RADIOLOGI 32051 CARL HENRY C EXAM 4 [facility] CHEST 2 INC INC VIEWS FRONTAL&L ATERAL ECHO 53790 [facility] TABARES TTHRC R-T 4 JR DEBBIE JR DEBBIE 2D W/WOM-[place] E COMPL SPEC&[place] [address] AMILCAR AMILCAR ABDOMINAL 4 DONITA DONITA REAL TIME W/IMAGE LIMITED SPMTRY 12562 [facility] W/VC 4 EXPIRATOR Y TAMIA W/WO MXML VOL VNTJ ANNUAL G0444 GABRIEL [place] AYSHA DEPRESSIO 4 Saroj FIGUEROA MD,PSC SCREENING 15 MINUTES IAADIADOO 80567 [facility] 3 INFLUENZA IAADIADOO 03122 [facility] M[facility] [address] [place] [address] MIKEY MIKEY ABDOMEN & 3 ADR ADR PELVIS W/CONTRAS T MATERIAL LOCM Q9967 [facility] [phone] Y Y MG/ML [facility] IODINE [place] [address] [facility] GAMMAGLOB 3 Y Y ULIN IGA [facility] IGD IGG IGM EACH IMMUNOASS 55579 [facility] AY 3 Y Y ANALYTE [facility] QUAL/SEMI QUAL MULTIPLE STEP COLLECTIO 20496 [facility] N VENOUS 3 Y Y BLOOD [facility] [place] [address] [facility] THYROID 3 Y Y STIMULATI [facility] NG HORMONE TSH RADEX ABD 31143 NICKELS NICKELS COMPL 3 FREDDIE FREDDIE AQT ABD W/S/E/D VIEWS 1 VIEW CH INJECTION J3010 [facility] FENTANYL 3 Y Y CITRATE [facility] 0.[address] [place] [address] [facility] SURG 3 Y Y PATHOLOGY [facility] GROSS&[place] [address] [facility] TRANSORAL 3 Y Y BIOPSY [facility] SINGLE/MU LTIPLE INJECTION J2250 [facility] 3 Y Y [facility] HCL [place] 1 [place] [address] KASI VILLASEÑOR ABDOMINAL [address] [place] [address] TIME W/IMAGE LIMITED BLOOD 80541 CHANCELLOR DANII COUNT [address] [place] [address] AUTO&AUTO DIFRNTL WBC COLLECTIO 86534 [facility]ENOUS [address] [place] [address] [place] [address] [facility] AMYLASE [address] [place] [address] CULTURE 15311 [facility] BACTERIAL [address] [place] [address] QUANTTATI VE COLONY COUNT URINE COMPREHEN 9[address] [facility] SIVE [address] [place] [address] [place] [address] [facility] LIPASE [address] [place] [address] URNLS DIP [address] [facility] HOSPITAL LET REAGENT AUTO MICROSCOP Y SINUSOIDA 47487 HERDER HERDER L 3 AFTAB AFTAB VERTICAL AXIS ROTATIONA L TESTING CALORIC 48460 HERDER HERDER VESTIBULA 3 AFTAB AFTAB R TEST EA IRRIGATIO N W/RECORD VSTBLR 27709 HERDER HERDER FUNCJ 3 AFTAB AFTAB NYSTAG FOVL&PERP H STIMJ OSCIL TRK RADEX 96818 KASI VILLASEÑOR ESOPHAGUS [address] [place] [address] NERVE 95776 BHUMIKA BAI CONDUCTIO 3 SONNY SONNY N STUDIES 5-[address] SPINAL 3 S [facility] LUMBAR W/O CONTRAST MATERIAL MRI [address] SPINAL 3 S [facility] CERVICAL W/O CONTRAST MATRL MOTOR 27818 BHUMIKA BAI &/SENS 3 [facility] NRV CNDJ PRECONF ELTRD ARRAY LIMB THERAPEUT 02028 [place] MAURICIOURBON IC PX 1/> 2 [facility] EACH 15 MIN EXERCISES E-STIM G0283 [place] 1/> AREAS 2 [facility] PART TX PLAN E-STIM G0283 [place] 1/> AREAS 2 [facility] HOSP[facility] WND CARE PART TX PLAN THERAPEUT 05310 DANIION MAURICIOURBON IC PX 1/> 2 [facility] EACH 15 MIN EXERCISES SINUSOIDA 50149 BHUMIKA BAI L 2 [facility] VERTICAL AXIS ROTATIONA L TESTING CALORIC 94663 BHUM[facility] BAI VESTIBULA 2 [facility] R TEST EA IRRIGATIO N W/RECORD SPONTANEO 13567 BHUM[facility] BAI US 2 [facility] NYSTAGMUS TEST PHYSICAL 20113 [place] THERAPY 2 [facility] N CYTP 83144 LAB [facility] LABORATOR CERV/VAG 1 AMERIC Y MEAGHAN OF AUTO THIN HOLDINGS NORMA LAYER H PREP MNL SCREEN IADNA 56048 [facility]AG[facility]AN JUAN 1 AMERIC AMERIC SPECIES HOLDINGS HOLDING DIRECT PROBE TQ IADNA 82711 [facility] LABORATOR PAPILLOMA 1 AMERIC Y MEAGHAN OF VIRUS HOLDINGS NORMA HUMAN H AMPLIFIED PROBE TQ IADNA 30261 [facility] LAB MEAGHAN TRICHOMON 1 AMERIC AMERIC HOLDINGS HOLDING VAGINALIS DIRECT PROBE TQ IADNA 45218 LAB [facility] LAB MEAGHAN GARDNEREL 1 AMERIC AMERIC LA HOLDINGS HOLDING VAGINALIS DIRECT PROBE TQ SPONTANEO 22737 PHYSICIAN YOMI GRE US 1 S [facility]STAG[facility] SERVICES TEST POSITIONA 99445 PHYSICIAN YOMI GRE L 1 S NYSTAGMUS SERVICES TEST SINUSOIDA 48275 PHYSICIAN YOMI GRE L 1 S VERTICAL SERVICES AXIS ROTATIONA L TESTING OPTKINETI 85676 PHYSICIAN YOMI GRE C NYSTAG 1 S BIDIR/FOV SERVICES EAL/PERIP H STIM W/REC CALORIC 15157 PHYSICIAN YOMI GRE VESTIBULA 1 S R TEST EA SERVICES IRRIGATIO N W/RECORD DRUG SCR G0434 PAVEL LANGE NOT 1 [facility] RAPHIC; ANY NUMBER PT ENC SPMTRY 10450 WEST MUR WEST MUR W/VC 1 EXPIRATOR Y TAMIA W/[place] [address] [place] ABDOMINAL 1 [facility] TIME W/[place] [address] [facility] [place] ESTIVEN MAT ABDOMINAL 1 RADIOLOGY REAL TIME W/IMAGE LIMITED MRI 14117 [place] EV[facility]IO SPINAL 1 R OPEN MALCOLM CANAL MRI CERVICAL W/O CONTRAST MATRL 3D 97541 [place] [facility] RENDERING 1 R OPEN MALCOLM W/INTERP MRI & POSTPROCE SS SUPERVISI ON MRI 77563 [place] EV[facility]IO SPINAL 1 R OPEN MALCOLM CANAL MRI LUMBAR W/O CONTRAST MATERIAL DEEP D9220 ALVIN I COPELAND III, SEDATION/ 0 COPELAND III ALVIN I GENERAL PSC N0 3 ANESTHESI A-1ST 30 MINUTES OPHTH 27749 SHAKIRA WIN, MEDICAL 0 VISION JOSE M XM&EVAL COMPRE NEW PT 1/> VST Encounters Encounter Start End Date Code Location Performer Type Date EMERGENCY 82042 [facility] PHYS HIGH/URGE NT SEVERITY EMERGENCY 07495 [facility] 7 7 TESSY DEPARTMEN EMERGENCY T VISIT PHYS MODERATE SEVERITY OFFICE 26537 [facility] KARI OUTPATIEN 7 7 PHYSICIAN T VISIT S GROUP 25 MINUTES OFFICE 10991 [facility] PETTEY OUTPATIEN 7 7 PHYSICIAN T NEW 30 S GROUP MINUTES [facility]OSPITAL [facility] - 7 7 [facility] OUTPATIEN INC T EMERGENCY 98831 [facility] 7 7 [facility] DEPARTMEN INC T VISIT LIMITED/M INOR PROB EMERGENCY 79160 [facility] ARNOLD 7 7 TESSY DEPARTMEN EMERGENCY T VISIT PHYS MODERATE SEVERITY OFFICE 22482 [facility] FRYMAN OUTPATIEN 6 6 PHYSICIAN T VISIT S GROUP 15 MINUTES EMERGENCY 43399 [facility] CHANDEL 6 6 TESSY DEPARTMEN EMERGENCY T VISIT PHYS MODERATE SEVERITY EMERGENCY 97572 [facility] ARNOLD 6 6 TESSY MARION DEPARTMEN EMERGENCY T VISIT PHYS HIGH/URGE NT SEVERITY [facility]OSPITAL [facility] - 6 6 [facility] OUTPATIEN INC T OFFICE 55380 [facility] KARI OUTPATIEN 6 6 PHYSICIAN LEELEE T VISIT S GROUP 15 MINUTES HOSPITAL [facility] - 6 6 [facility] OUTPATIEN INC T [facility]OSPITAL [facility] - 6 6 [facility] OUTPATIEN INC T OFFICE 02704 [facility] AKRI OUTPATIEN 6 6 PHYSICIAN LEELEE T VISIT S GROUP 25 MINUTES OFFICE 47746 [facility] OUTPATI[facility] 6 6 HEALTH HEN T VISIT MEDICAL 10 GROUP MINUTES EMERGENCY 50683 [facility] 6 6 TESSY PAT DEPARTMEN EMERGENCY T VISIT PHYSI HIGH/URGE NT SEVERITY EMERGENCY 69480 [facility] DEPT 6 6 TESSY LIA VISIT EMERGENCY HIGH PHYSI SEVERITY& THREAT FUNCJ EMERGENCY 77559 [facility] GAYHEART 6 6 TESSY AYSHA DEPARTMEN EMERGENCY T VISIT SERV HIGH/URGE NT SEVERITY OFFICE 87343 [facility] 6 6 POINT AYSHA T VISIT FAMILY 15 CARE, IN MINUTES EMERGENCY 41797 [facility] RICHARD 6 6 TESSY N RIDGE DEPARTMEN EMERGENCY T VISIT PHYSI MODERATE SEVERITY EMERGENCY 71236 [facility] DEPT 6 6 TESSY PHI VISIT EMERGENCY HIGH PHYSI SEVERITY& THREAT FUNCJ EMERGENCY 40758 [facility] 6 6 TESSY LIA DEPARTMEN EMERGENCY T VISIT PHYSI HIGH/URGE NT SEVERITY OFFICE 03839 [facility] OUTPATIEN 5 5 PHYSICIAN LEELEE T VISIT S GROUP 15 MINUTES EMERGENCY 89111 [facility] SWINEY 5 5 TESSY PAT DEPARTMEN EMERGENCY T VISIT PHYS MODERATE SEVERITY EMERGENCY 27949 NEISHA WILL 5 5 PHYSICIAN RAMÓN DEPARTMEN S, PLLC T VISIT MODERATE SEVERITY [facility] [place] - 5 5 [facility] [place] - 5 5 [facility] EMERGENCY 29631 [facility]BDIRASHID [facility] EMERGENCY T VISIT PHYS HIGH/URGE NT SEVERITY [facility] [place] - 4 4 [facility] UNIVERSIT - 4 4 [facility] CARL - 4 4 [facility] OUTPATIEN [facility] CARL - 4 4 [facility] - 4 4 [facility] 82575 ADIEL ANT ADIEL ANT OUTPATIEN 4 4 T VISIT 25 MINUTES EMERGENCY 04696 ALEX JOHNSON DONITA 4 4 DEPARTMEN T VISIT HIGH/URGE NT SEVERITY OFFICE 39440 [facility] 4 4 T VISIT 15 MINUTES OFFICE 09620 GABRIEL [facility] OUTPATIEN 4 4 Antwan FIGUEROA MD,PSC MINUTES OFFICE 98226 [facility] OUT[facility] 4 4 T VISIT 15 MINUTES OFFICE 80344 [facility] 3 3 T VISIT 25 MINUTES HOSPITAL [facility]ERS[facility] - 3 3 [facility] T OFFICE 81521 ADIEL ANT ADIEL ANT CONSULTAT 3 3 ION NEW/ESTAB PATIENT 60 MIN HOSPITAL UNIVERSIT - 3 3 Y [facility] T EMERGENCY 54522 UNIVERSIT 3 3 Y [facility] T VISIT HIGH/URGE NT SEVERITY EMERGENCY 15869 ECKERLINE ECKERLINE 3 3 JR GABRIELLE JR [facility] T VISIT MODERATE SEVERITY HOSPITAL UNIVERSIT - 3 3 Y [facility] T OFFICE 95063 YOMI GRE YOMI GRE OUTPATIEN 3 3 T VISIT 25 MINUTES EMERGENCY 66980 PEYTON TODD 3 3 SONNY [facility] T VISIT MODERATE SEVERITY HOSPITAL UNIVERSIT - 3 3 Y [facility] T OFFICE 42451 [facility] T VISIT 15 MINUTES OFFICE 85203 [facility] 3 SONNY SONNY T VISIT 15 MINUTES [facility] 40599 [facility] 3 T VISIT 15 MINUTES OFFICE 56282 [facility] 3 AFTAB AFTAB T VISIT 15 MINUTES [facility] [place] - 3 3 [facility] T OFFICE 24169 [facility] 3 3 T VISIT 15 MINUTES OFFICE 10733 [facility] OUT[facility] 3 3 SONNY SONNY T VISIT 25 MINUTES OFFICE 56390 [facility] OUT[facility] 3 3 SONNY SONNY T VISIT 25 MINUTES EMERGENCY 59194 KEELY SÁNCHEZ 3 3 [facility] T VISIT MODERATE SEVERITY OFFICE 26335 YOMI GRE YOMI GRE OUTPATIEN 2 2 T VISIT 25 MINUTES [facility]OSP[facility] [place] - 2 2 [facility] T OFFICE 94999 [facility] OUTPATIEN 2 2 T VISIT 25 MINUTES OFFICE 10428 YOMI GRE YOMI GRE OUTPATIEN 2 2 T VISIT 25 MINUTES EMERGENCY 11655 MAHER MAHER 2 2 PHI PHI DEPARTMEN T VISIT HIGH/URGE NT SEVERITY OFFICE 12977 [facility] OUT[facility] 2 2 MAR MAR T VISIT 15 MINUTES EMERGENCY 15014 CHIP BARBOSAMAN 2 2 ALEX ALEX DEPARTMEN T VISIT MODERATE SEVERITY OFFICE 77754 [facility] OUTPATIEN 1 1 MAR MAR T VISIT 15 MINUTES OFFICE 15725 CATHERINE ALEXANDER OUTPATIEN 1 1 BECKI BECKI T VISIT 15 MINUTES OFFICE 97613 PHYSICIAN YOMI GRE OUTPATIEN 1 1 S T VISIT SERVICES 15 MINUTES OFFICE 41795 PHYSICIAN YOMI GRE OUTPATIEN 1 1 S T VISIT SERVICES 15 MINUTES OFFICE 99502 PHYSICIAN YOMI GRE OUTPATIEN 1 1 S T VISIT SERVICES 15 MINUTES OFFICE 20491 PHYSICIAN YOMI GRE OUTPATIEN 1 1 S T VISIT SERVICES 15 MINUTES OFFICE 04496 PHYSICIAN YOIM GRE OUTPATIEN 1 1 S T NEW 30 SERVICES MINUTES OFFICE 99524 [facility] OUTPATIEN 1 1 [facility] T VISIT E CENTER 15 MINUTES OFFICE 64883 [place] FATIMAH PHI CONSULTAT 1 1 MEDICAL ION SERV NEW/ESTAB FOUNDATIO PATIENT 40 MIN OFFICE 93828 [facility] OUTPATIEN 1 1 T NEW 30 MINUTES [facility] [place] - 1 1 [facility] T OFFICE 85175 ALVIN COPELAND III, OUTPATIEN 0 0 MIN [place] NEW 20 PSC N0 3 MINUTES
--- OUTSIDE RECORDS SUMMARY | 2016-12-25 18:56 | External Medical Summary Rpt ---
Demographics Preferred Language Slovenian Marital Status Unknown Spiritism Affiliation Unknown Race Unknown Ethnic Group Unknown Author Author JERRICA Address Unknown Phone Immunization No patient found.
--- OUTSIDE RECORDS SUMMARY | 2016-12-25 18:56 | External Medical Summary Rpt ---
Demographics Preferred Language Belizean Marital Status Unknown Zoroastrian Affiliation Unknown Race Unknown Ethnic Group Unknown Author Author JERRICA Address Unknown Phone Immunization No patient found.
--- OUTSIDE RECORDS SUMMARY | 2016-12-25 18:56 | External Medical Summary Rpt ---
Author Author JERRICA [employer], [employer] Organization [employer] Address Unknown Phone Unavailable
== END 2016-12-24 16:10 | disposition home or self-care (01) ==
LOC: ER 15:07
DX: H10.32 Unspecified acute conjunctivitis, left eye (principal); J20.9 Acute bronchitis, unspecified; Z72.0 Tobacco use